=== PATIENT | female | born 1955 | race Hispanic/Latino ===

== ENCOUNTER 2017-09-24 05:57 | Inpatient (IN) | payer OTHER ==
[2017-09-19 13:33] VITALS: BMI 37.8
[2017-09-24] MEDS ORDERED: Propofol 10 mg/ml Inj (20 ML) ONE (07:17)
[2017-09-24] MEDS ORDERED: Midazolam 2 MG/2 ML VIAL ONE (07:18)
[2017-09-24] MEDS ORDERED: Neostigmine 1:1000 (1 mg/ml) Inj ONE (07:18)
[2017-09-24] MEDS ORDERED: Succinylcholine 200 mg/10 ml Inj IV ONE (07:18)
[2017-09-24] MEDS ORDERED: Lidocaine 4% (Laryng-O-Jet) Kit MM ONE (07:18)
[2017-09-24] MEDS ORDERED: Sevoflurane - Inhalation Anesthetic Liq (250 ml) ONE (07:18)
[2017-09-24] MEDS ORDERED: Rocuronium 10 mg/ml (5 ml) ONE ×2 (07:20→08:13)
--- NOTE | 2017-09-24 07:35 | CP.PCM.CON ---
History of Present Illness - History of Present Illness History of Present Illness: 62F failed conservative mgmt and elected for total knee replacement. No history of bleeding/blood clots/stents/seizure disorder Review of Systems - Review of Systems All systems: reviewed and no additional remarkable complaints except - Musculoskeletal Musculoskeletal: As Per HPI Past Patient History - Past Medical History & Family History Past Medical History?: Yes - Past Social History Smoking Status: Former Smoker - CARDIAC Hx Cardiac Disorders: No - PULMONARY Hx Respiratory Disorders: No - NEUROLOGICAL Hx Neurological Disorder: No - HEENT Hx HEENT Problems: No - RENAL Hx Chronic Kidney Disease: No - ENDOCRINE/METABOLIC Hx Endocrine Disorders: No - HEMATOLOGICAL/ONCOLOGICAL Hx Blood Disorders: No - INTEGUMENTARY Hx Dermatological Problems: No - MUSCULOSKELETAL/RHEUMATOLOGICAL Hx Musculoskeletal Disorders: Yes Hx Arthritis: Yes (hands,knees,back) - GASTROINTESTINAL Hx Gastrointestinal Disorders: No - GENITOURINARY/GYNECOLOGICAL Hx Genitourinary Disorders: No - PSYCHIATRIC Hx Psychophysiologic Disorder: Yes Hx Depression: Yes - SURGICAL HISTORY Hx Surgeries: Yes Hx Section: Yes (x2) Hx Orthopedic Surgery: Yes (anant hip-2012) Other/Comment: spinal surgery with disc fusion 30 years ago - ANESTHESIA Hx Anesthesia: Yes Hx Anesthesia Reactions: No Hx Malignant Hyperthermia: No Has any member of the family had a problem w/ anesthesia?: No Meds Allergies/Adverse Reactions: Allergies Allergy/AdvReac Type Severity Reaction Status Date / Time No Known Allergies Allergy Verified 09/19/17 13:34 Physical Exam - Constitutional Appears: Well, No Acute Distress - Head Exam Head Exam: ATRAUMATIC - Expanded Lower Extremities Exam Left Knee exam: full ROM, normal inspection Ankle exam: FULL ROM, NORMAL INSPECTION Neuro vacular tendon exam: no vascular compromise - Neurological Exam Neurological exam: Alert, Oriented x3 - Psychiatric Exam Psychiatric exam: Normal Affect, Normal Mood - Skin Skin Exam: Dry, Intact, Normal Color, Warm Results - Vital Signs Recent Vital Signs: Last Vital Signs Temp 9.3 F L 09/24/17 06:47 Pulse 103 H 09/24/17 06:47 Resp 18 09/24/17 06:47 BP 118/67 09/24/17 06:47 Pulse Ox 95 09/24/17 06:47 - Labs Labs: Laboratory Results - last 24 hr 09/24/17 07:00 Crossmatch See Detail BBK History Checked No verified bt Assessment & Plan (1) Primary osteoarthritis of left knee Assessment and Plan: NPO T&S for TKR xrays reviewed, shows tricompartmental DJD, worst in lateral compartment with valgus deformity d/w Dr. Trejo agrees with above Status: Acute (2) Depression Assessment and Plan: cont home meds Status: Chronic
[2017-09-24 07:37] LABS: INR 1.1 (0.9-1.2); PARTIAL THROMBOPLASTIN TIME 29.4 Seconds (25.6-37.1); PROTHROMBIN TIME 12.7 Seconds (9.8-13.1)
[2017-09-24] MEDS ORDERED: Bupivacaine 0.5% Inj(30mL) ONE (07:42)
[2017-09-24] MEDS ORDERED: MethylPREDNISolone Depo 40 mg/ml Inj ONE (07:42)
[2017-09-24] MEDS ORDERED: Absorbable Gelatin Sponge Size 100 ONE (07:43)
[2017-09-24] MEDS ORDERED: Bacitracin Ointment 30 GM TUBE ONE (07:43)
[2017-09-24] MEDS ORDERED: Thrombin Topical 5,000 Int Units Spray Kit ONE (07:43)
[2017-09-24] MEDS ORDERED: Lactated Ringer's 1,000 ML IV ONE ×2 (07:50→10:15)
--- NOTE | 2017-09-24 08:35 | CP.PCM.CON ---
History of Present Illness - History of Present Illness History of Present Illness: Reason for consult: preop eval HPI: This is a 62 year old female with PMH Depression on Cymbalta presenting today for L knee surgery with Dr. Trejo. Patient has a history of osteoarthritis that failed conservative treatment. Patient was evaluated by Omayra DANGELO for medical clearance as well as Dr. Kavon Fischer for Cardiology clearance as well. Preop H/H 13.2/39.9. HD stable NAD. Mets > 4, medically stable for OR, low risk for moderate risk procedure. ROS: per HPI all other systems reviewed and negative Past Patient History - Past Medical History & Family History Past Medical History?: Yes - Past Social History Smoking Status: Former Smoker - CARDIAC Hx Cardiac Disorders: No - PULMONARY Hx Respiratory Disorders: No - NEUROLOGICAL Hx Neurological Disorder: No - HEENT Hx HEENT Problems: No - RENAL Hx Chronic Kidney Disease: No - ENDOCRINE/METABOLIC Hx Endocrine Disorders: No - HEMATOLOGICAL/ONCOLOGICAL Hx Blood Disorders: No - INTEGUMENTARY Hx Dermatological Problems: No - MUSCULOSKELETAL/RHEUMATOLOGICAL Hx Musculoskeletal Disorders: Yes Hx Arthritis: Yes (hands,knees,back) - GASTROINTESTINAL Hx Gastrointestinal Disorders: No - GENITOURINARY/GYNECOLOGICAL Hx Genitourinary Disorders: No - PSYCHIATRIC Hx Psychophysiologic Disorder: Yes Hx Depression: Yes - SURGICAL HISTORY Hx Surgeries: Yes Hx Section: Yes (x2) Hx Orthopedic Surgery: Yes (anant hip-2012) Other/Comment: spinal surgery with disc fusion 30 years ago - ANESTHESIA Hx Anesthesia: Yes Hx Anesthesia Reactions: No Hx Malignant Hyperthermia: No Has any member of the family had a problem w/ anesthesia?: No Meds Allergies/Adverse Reactions: Allergies Allergy/AdvReac Type Severity Reaction Status Date / Time No Known Allergies Allergy Verified 09/19/17 13:34 Physical Exam - Additional Findings Additional findings: General: awake, alert HEENT: NCAT, PERRL, EOMI HEART: RRR, S1, S2 no MRG LUNG: CTAB, no WRR ABD: soft, NT, ND, no mass, no HSM EXT: warm, well perfused NEURO: awake, alert SKIN: warm, dry PSYCH: normal mood, normal affect Results - Vital Signs Recent Vital Signs: Last Vital Signs Temp 9.3 F L 09/24/17 06:47 Pulse 103 H 09/24/17 06:47 Resp 18 09/24/17 06:47 BP 118/67 09/24/17 06:47 Pulse Ox 95 09/24/17 06:47 - Labs Labs: Laboratory Results - last 24 hr 09/24/17 09/24/17 07:00 07:00 PT 12.7 INR 1.1 APTT 29.4 Crossmatch See Detail BBK History Checked No verified bt Assessment & Plan - Assessment and Plan (Free Text) Plan: 62 year old female with PMH Depression on Cymbalta presenting today for L knee surgery with Dr. Trejo. Patient has a history of osteoarthritis that failed conservative treatment. Patient was evaluated by Omayra DANGELO for medical clearance as well as Dr. Kavon Fischer for Cardiology clearance as well. Preop H/H 13.2/39.9. HD stable NAD. Mets > 4, medically stable for OR, low risk for moderate risk procedure. Osteoarthritis L knee surgery with Dr. Trejo Ancef 2 gm 2 more doses Incentive spirometry Orthopedic Surgery Dr. Trejo pain control PT AC per Ortho Depression Cont Cymbalta
--- NOTE | 2017-09-24 08:49 | RAD ---
PROCEDURE: Left Knee Radiographs. HISTORY: Pain. COMPARISON: None. FINDINGS: BONES: No acute fracture or destructive bony lesion identified. JOINTS: Marked joint space narrowing, cortical sclerosis and marginal osteophytes are identified at the patellofemoral and lateral femorotibial compartments with a mild valgus deformity of the knee joint appreciated. Lesser similar changes present medial femorotibial compartment. JOINT EFFUSION: A moderate suprapatellar bursa effusions identified. OTHER FINDINGS: None. IMPRESSION: Advanced osteoarthritis left knee. No acute fracture or dislocation. Mild valgus knee deformity identified on a degenerative basis.
[2017-09-24] MEDS ORDERED: Bupivacaine HCl 0.25% PF (30 ml) Inj ONE ×2 (09:04→09:05)
[2017-09-24] MEDS ORDERED: EPINEPHrine 1 mg/ml (1:1000) Inj ONE (09:04)
[2017-09-24] MEDS ORDERED: Tranexamic Acid 100 mg/ml IV ONE (09:45)
[2017-09-24] MEDS ORDERED: HYDROmorphone 0.5 mg/0.5 ml ISec IVP PRN (11:11)
--- NOTE | 2017-09-24 12:36 | PCM.ANESB3 ---
Femoral Nerve Block - Femoral Nerve Block Date of Procedure: 09/24/17 Anesthesiologist: Dr. Oakes Pre-Procedure Diagnosis: S/P left total knee replacement Post-Procedure Diagnosis: S/P left total knee replacement Procedure Performed: Femoral Nerve Block Left - Procedure Femoral Nerve Block: The procedure was explained to the patient that it is for the post-operative pain management. Consent was obtained after a thorough discussion with the patient regarding the benefits and possible complications of local anesthetic block of the femoral nerve at the inguinal crease area. The patient was brought to recovery room and standard monitors were applied after the surgery. Time-out was held with the circulating nurse to confirm the correct side and the appropriate block. Patient in supine position with fully extended lower extremities and the left groin exposed. The femoral artery was then carefully palpated. The ultrasound transducer was then applied to this area in the transverse plane and the femoral nerve was visualized lateral to the femoral artery and underneath the fascia iliaca. After thorough identification, the inguinal crease area was prepped with Chloraprep solution and 1 % Lidocaine was injected subcutaneously for topical anesthesia. At this point, a #20 gauge Stimuplex 4-inch needle was inserted immediately lateral to the femoral artery pulse at the inguinal crease and advanced perpendicularly. The needle was inserted to the ultrasound transducer in-plane towards the femoral nerve in a [id number]-[id number] direction. Needle advancement was performed carefully under direct ultrasound visualization. Nerve stimulator was used and twitch of the quadriceps muscle was obtained at current of 0.3MA. After negative aspiration, 5cc of 0.25% Bupivacaine with 1:200,000 epinephrine was injected and this was followed with 35cc of 0.25% Bupivacaine with 1:200, 000 epinephrine. Under ultrasound guidance the local anesthetics were observed spreading below fascia iliaca and around the femoral nerve. The needle was removed intact and sterile dressing was applied. The patient had stable vital signs, was conscious and in no apparent distress. The patient tolerated the femoral nerve block well with stable vital signs.
[2017-09-24] MEDS: Lactated Ringer's 1,000 ML IV SCH (12:59)
[2017-09-24] MEDS: Sodium Chloride 0.9% 1,000 ML IV SCH (13:00)
--- NOTE | 2017-09-24 15:17 | RAD ---
PROCEDURE: Left Knee Radiographs. HISTORY: Postop COMPARISON: Preoperative study September 24, 2017. FINDINGS: BONES: Satisfactory position alignment of components of left TKA. JOINTS: Air identified soft tissues. JOINT EFFUSION: Surgical drain cyst identified. OTHER FINDINGS: None. IMPRESSION: Satisfactory postoperative status.
[2017-09-24] MEDS: Oxycodone/Acetaminophen 5/325 mg Tab PO PRN (16:49)
[2017-09-24] MEDS: ceFAZolin 2 GM in Sodium Chloride 0.9% 100 ML IVPB SCH (16:50)
--- NOTE | 2017-09-24 18:30 | PCM.SURG1 ---
Surgeon's Initial Post Op Note - Surgeon's Notes Surgeon: Maya Publications Manager: 1st assist ELIO Mac/ 2nd assist Jose Bailey PA-C Type of Anesthesia: General Endo, Spinal Anesthesia Administered By: DR Oakes Pre-Operative Diagnosis: Tricompartmental O/A L knee. posterior capsular contracture/lateral patella contracture. arthrotomy/synovectomy. lateral patella release. computer navigation. \ Operative Findings: as above Post-Operative Diagnosis: as above Operation Performed: L TKR. posterior capsule release. anterior and posterior synovectomy. computer navigation Specimen/Specimens Removed: cartilage/synvium/bone Estimated Blood Loss: EBL {In ML}: 75 Blood Products Given: N/A Drains Used: Hemovac Post-Op Condition: Good Date of Surgery/Procedure: 09/24/17 Time of Surgery/Procedure: 08:45 (time in room 7:50/anaesthesia indcution time 7 :50)
--- NOTE | 2017-09-24 19:40 | CP.PCM.CON ---
History of Present Illness - History of Present Illness History of Present Illness: CARDIOLOGY WAS ASKED TO SEE THE PATIENT FOR TACHYCARDIA. SHE JUST UNDERWENT A LEFT KNEE REPLACEMENT FOR SEVERE OA THAT FAILED CONSERVATIVE THERAPY. THE PATIENT DENIES ANY PRIOR CARDIAC PROBLEMS. SHE HAS A HISTORY OF DEPRESSION AND ANXIETY. SHE STATES THAT SHE IS ANXIOUS UNDERGOING KNEE SURGERY AND ALSO HAD 2 CUPS OF COFFEE AND BELIEVES THAT IS THE REASON FOR THE TACHYCARDIA. SHE DENIES CHEST PAIN OR SOB. SHE WAS CLEARED BY HER LOCAL PHYSICIANS PRIOR TO SURGERY. SHE HAD PRIOR HIP SURGERIES. Past Patient History - Past Medical History & Family History Past Medical History?: Yes - Past Social History Smoking Status: Former Smoker - CARDIAC Hx Cardiac Disorders: No - PULMONARY Hx Respiratory Disorders: No - NEUROLOGICAL Hx Neurological Disorder: No - HEENT Hx HEENT Problems: No - RENAL Hx Chronic Kidney Disease: No - ENDOCRINE/METABOLIC Hx Endocrine Disorders: No - HEMATOLOGICAL/ONCOLOGICAL Hx Blood Disorders: No - INTEGUMENTARY Hx Dermatological Problems: No - MUSCULOSKELETAL/RHEUMATOLOGICAL Hx Musculoskeletal Disorders: Yes Hx Arthritis: Yes (hands,knees,back) - GASTROINTESTINAL Hx Gastrointestinal Disorders: No - GENITOURINARY/GYNECOLOGICAL Hx Genitourinary Disorders: No - PSYCHIATRIC Hx Psychophysiologic Disorder: Yes Hx Depression: Yes - SURGICAL HISTORY Hx Surgeries: Yes Hx Section: Yes (x2) Hx Orthopedic Surgery: Yes (anant hip-2012) Other/Comment: spinal surgery with disc fusion 30 years ago - ANESTHESIA Hx Anesthesia: Yes Hx Anesthesia Reactions: No Hx Malignant Hyperthermia: No Has any member of the family had a problem w/ anesthesia?: No Meds Allergies/Adverse Reactions: Allergies Allergy/AdvReac Type Severity Reaction Status Date / Time No Known Allergies Allergy Verified 09/19/17 13:34 - Medications Medications: Current Medications Aspirin (Ecotrin) 81 mg PO BID [facility] Docusate Sodium (Colace) 100 mg PO BID [facility] Last Admin: 09/24/17 17:09 Dose: 100 mg Duloxetine HCl (Cymbalta) 60 mg PO DAILY [facility] Last Admin: 09/24/17 19:36 Dose: 60 mg Hydromorphone HCl (Dilaudid) 0.5 mg IVP Q4 PRN PRN Reason: Pain, severe (8-10) Cefazolin Sodium 2 gm/ Sodium (Chloride) 100 mls @ 100 mls/hr IVPB Q8H [facility] PRN Reason: Protocol Stop: 09/25/17 00:59 Last Admin: 09/24/17 16:50 Dose: 100 mls/hr Sodium Chloride (Sodium Chloride 0.9%) 1,000 mls @ 80 mls/hr IV .[id number] [facility] Stop: 09/25/17 11:07 Last Admin: 09/24/17 13:00 Dose: Not Given Lactated Ringer's (Lactated Ringer's) 1,000 mls @ 100 mls/hr IV .Q10H [facility] Last Admin: 09/24/17 12:59 Dose: Not Given Ondansetron HCl (Zofran Inj) 4 mg IVP Q6 PRN PRN Reason: Nausea/Vomiting Last Admin: 09/24/17 19:35 Dose: 4 mg Oxycodone/Acetaminophen (Percocet 5/325 Mg Tab) 1 tab PO Q4 PRN PRN Reason: Pain, moderate (4-7) Stop: 09/27/17 11:06 Last Admin: 09/24/17 16:49 Dose: 1 tab Physical Exam - Respiratory Exam Respiratory Exam: Clear to Auscultation Bilateral - Cardiovascular Exam Cardiovascular Exam: Tachycardia, +S1, +S2 - Extremities Exam Additional comments: LLE IN AN IMMOBILIZER RLE WITHOUT EDEMA AND DANIEL'S SIGN IS NEGATIVE - Additional Findings Additional findings: EKG SINUS TACHYCARDIA, R 109, NO ACUTE CHANGES Results - Vital Signs Recent Vital Signs: Last Vital Signs Temp 98.2 F 09/24/17 16:41 Pulse 113 H 09/24/17 16:41 Resp 17 09/24/17 16:41 BP 130/75 09/24/17 16:41 Pulse Ox 97 09/24/17 16:41 - Labs Labs: Laboratory Results - last 24 hr 09/24/17 09/24/17 09/24/17 07:00 07:00 07:30 PT 12.7 INR 1.1 APTT 29.4 Blood Type B POSITIVE Blood Type Confirm B POSITIVE Antibody Screen Negative Crossmatch See Detail BBK History Checked No verified bt Assessment & Plan - Assessment and Plan (Free Text) Assessment: MILD SINUS TACHYCARDIA MOST PROBABLY FROM ANXIETY AND CAFFEINE S/P LEFT TKR Plan: CONTINUE CYMBALTA, ANTIBIOTICS AND PAIN MEDS
[2017-09-25] MEDS: ceFAZolin 2 GM in Sodium Chloride 0.9% 100 ML IVPB SCH (00:39)
[2017-09-25 07:08] LABS: HEMOGLOBIN 11.3 g/dL (12.0-16.0); MEAN CORPUSCULAR HEMOGLOBIN 27.5 pg (27.0-31.0); MEAN CORPUSCULAR HGB CONC 33.6 g/dL (33.0-37.0); RBC 4.09 Mil/uL (3.80-5.20); RED CELL DISTRIBUTION WIDTH 14.6 % (11.5-14.5); WHITE BLOOD COUNT 9.2 K/uL (4.8-10.8)
[2017-09-25 07:32] LABS: BLOOD UREA NITROGEN 15 mg/dl (7-17); CALCIUM 8.4 mg/dL (8.4-10.2); GFR AFRICAN-AMERICAN > 60; GFR NON-AFRICAN AMERICAN > 60
--- NOTE | 2017-09-25 09:04 | CP.PCM.PN ---
Subjective - Date & Time of Evaluation Date of Evaluation: 09/25/17 Time of Evaluation: 08:10 - Subjective Subjective: NO CHEST PAIN OR SOB Objective - Vital Signs/Intake and Output Vital Signs (last 24 hours): Temp Pulse Resp BP Pulse Ox 98.9 F 123 H 18 98/65 L 94 L 09/25/17 08:17 09/25/17 08:17 09/25/17 08:17 09/25/17 08:17 09/25/17 08:17 - Medications Medications: Current Medications Aspirin (Ecotrin) 81 mg PO BID [facility] Docusate Sodium (Colace) 100 mg PO BID [facility] Last Admin: 09/24/17 17:09 Dose: 100 mg Duloxetine HCl (Cymbalta) 60 mg PO DAILY [facility] Last Admin: 09/24/17 19:36 Dose: 60 mg Hydromorphone HCl (Dilaudid) 0.5 mg IVP Q4 PRN PRN Reason: Pain, severe (8-10) Last Admin: 09/25/17 04:52 Dose: 0.5 mg Sodium Chloride (Sodium Chloride 0.9%) 1,000 mls @ 80 mls/hr IV .[id number] [facility] Stop: 09/25/17 11:07 Last Admin: 09/24/17 13:00 Dose: Not Given Lactated Ringer's (Lactated Ringer's) 1,000 mls @ 100 mls/hr IV .Q10H [facility] Last Admin: 09/24/17 12:59 Dose: Not Given Ondansetron HCl (Zofran Inj) 4 mg IVP Q6 PRN PRN Reason: Nausea/Vomiting Last Admin: 09/24/17 19:35 Dose: 4 mg Oxycodone/Acetaminophen (Percocet 5/325 Mg Tab) 1 tab PO Q4 PRN PRN Reason: Pain, moderate (4-7) Stop: 09/27/17 11:06 Last Admin: 09/24/17 16:49 Dose: 1 tab - Labs Labs: 09/25/17 06:30 09/25/17 06:30 PT 12.7 Seconds (9.8-13.1) 09/24/17 07:00 INR 1.1 (0.9-1.2) 09/24/17 07:00 APTT 29.4 Seconds (25.6-37.1) 09/24/17 07:00 - Respiratory Exam Respiratory Exam: Clear to Ausculation Bilateral - Cardiovascular Exam Cardiovascular Exam: REGULAR RHYTHM, +S1, +S2 - Additional Findings Additional findings: H/H Assessment and Plan - Assessment and Plan (Free Text) Assessment: LEFT TKR DEPRESSION AND ANXIETY SINUS TACHYCARDIA Plan: CONTINUE CYMBALTA, ASPIRIN AND PAIN MEDICATIONS FOR REHAB
[2017-09-25] MEDS ORDERED: HYDROmorphone 0.5 mg/0.5 ml ISec IVP STA (10:04)
--- NOTE | 2017-09-25 10:44 | CARD ---
APPROVED REPORT EKG Measurement Heart [id number] <Conclusion> Sinus tachycardia Low voltage QRS Possible Inferior infarct, age undetermined Abnormal ECG
[2017-09-25] MEDS: Lactated Ringer's 1,000 ML IV SCH ×2 (11:28→17:28)
--- NOTE | 2017-09-25 11:56 | CP.PCM.PN ---
Subjective - Date & Time of Evaluation Date of Evaluation: 09/25/17 Time of Evaluation: 11:55 - Subjective Subjective: doing well pain controlled hd stable NAD Objective - Vital Signs/Intake and Output Vital Signs (last 24 hours): Temp Pulse Resp BP Pulse Ox 98.9 F 123 H 18 98/65 L 94 L 09/25/17 08:17 09/25/17 08:17 09/25/17 08:17 09/25/17 08:17 09/25/17 08:17 Intake and Output: General: awake, alert HEENT: NCAT, PERRL, EOMI HEART: RRR, S1, S2 no MRG LUNG: CTAB, no WRR ABD: soft, NT, ND, no mass, no HSM EXT: warm, well perfused NEURO: awake, alert SKIN: warm, dry PSYCH: normal mood, normal affect - Medications Medications: Current Medications Aspirin (Ecotrin) 81 mg PO BID [facility] Last Admin: 09/25/17 09:27 Dose: 81 mg Docusate Sodium (Colace) 100 mg PO BID [facility] Last Admin: 09/25/17 09:27 Dose: 100 mg Duloxetine HCl (Cymbalta) 60 mg PO DAILY@1700 [facility] Hydromorphone HCl (Dilaudid) 0.5 mg IVP Q4 PRN PRN Reason: Pain, severe (8-10) Last Admin: 09/25/17 09:19 Dose: 0.5 mg Lactated Ringer's (Lactated Ringer's) 1,000 mls @ 100 mls/hr IV .Q10H [facility] Last Admin: 09/24/17 12:59 Dose: Not Given Ondansetron HCl (Zofran Inj) 4 mg IVP Q6 PRN PRN Reason: Nausea/Vomiting Last Admin: 09/24/17 19:35 Dose: 4 mg Oxycodone/Acetaminophen (Percocet 5/325 Mg Tab) 1 tab PO Q4 PRN PRN Reason: Pain, moderate (4-7) Stop: 09/27/17 11:06 Last Admin: 09/24/17 16:49 Dose: 1 tab - Labs Labs: 09/25/17 06:30 09/25/17 06:30 PT 12.7 Seconds (9.8-13.1) 09/24/17 07:00 INR 1.1 (0.9-1.2) 09/24/17 07:00 APTT 29.4 Seconds (25.6-37.1) 09/24/17 07:00 Assessment and Plan - Assessment and Plan (Free Text) Plan: 62 year old female with PMH Depression on Cymbalta presenting today for L knee surgery with Dr. Trejo. Patient has a history of osteoarthritis that failed conservative treatment. Patient was evaluated by Omayra DANGELO for medical clearance as well as Dr. Kavon Fischer for Cardiology clearance as well. Preop H/H 13.2/39.9. HD stable NAD. Mets > 4, medically stable for OR, low risk for moderate risk procedure. Osteoarthritis L knee surgery with Dr. Trejo Ancef 2 gm 2 more doses Incentive spirometry Orthopedic Surgery Dr. Trejo pain control PT AC per Ortho Depression Cont Cymbalta
--- NOTE | 2017-09-25 12:30 | CP.PCM.PN ---
Subjective - Date & Time of Evaluation Date of Evaluation: 09/25/17 Time of Evaluation: 09:00 - Subjective Subjective: Patient seen and examined at bedside comfortable. Pain well controlled. Tolerating diet well. Able to ambulate down barney with rolling walker during PT session. + void, neg BM. No acute events overnight. Objective - Vital Signs/Intake and Output Vital Signs (last 24 hours): Temp Pulse Resp BP Pulse Ox 98.9 F 68 18 98/65 L 94 L 09/25/17 08:17 09/25/17 11:41 09/25/17 08:17 09/25/17 08:17 09/25/17 08:17 - Medications Medications: Current Medications Aspirin (Ecotrin) 81 mg PO BID [facility] Last Admin: 09/25/17 09:27 Dose: 81 mg Docusate Sodium (Colace) 100 mg PO BID [facility] Last Admin: 09/25/17 09:27 Dose: 100 mg Duloxetine HCl (Cymbalta) 60 mg PO DAILY@1700 [facility] Hydromorphone HCl (Dilaudid) 0.5 mg IVP Q4 PRN PRN Reason: Pain, severe (8-10) Last Admin: 09/25/17 09:19 Dose: 0.5 mg Lactated Ringer's (Lactated Ringer's) 1,000 mls @ 100 mls/hr IV .Q10H [facility] Last Admin: 09/24/17 12:59 Dose: Not Given Ondansetron HCl (Zofran Inj) 4 mg IVP Q6 PRN PRN Reason: Nausea/Vomiting Last Admin: 09/24/17 19:35 Dose: 4 mg Oxycodone/Acetaminophen (Percocet 5/325 Mg Tab) 1 tab PO Q4 PRN PRN Reason: Pain, moderate (4-7) Stop: 09/27/17 11:06 Last Admin: 09/24/17 16:49 Dose: 1 tab - Labs Labs: 09/25/17 06:30 09/25/17 06:30 PT 12.7 Seconds (9.8-13.1) 09/24/17 07:00 INR 1.1 (0.9-1.2) 09/24/17 07:00 APTT 29.4 Seconds (25.6-37.1) 09/24/17 07:00 - Extremities Exam Additional comments: L knee: dressings CDI, mild swelling, mild tenderness, hemovac intact with mod sang drainage sensation intact SP/DP/TN motor intact EHL/FHL/TA/G pedal pulses intact comp soft NT Assessment and Plan (1) Primary osteoarthritis of left knee Assessment & Plan: POD#1 s/p L TKA doing well -monitor drain output, may remove ivanna AM -labs, vitals stable -complete postop abx doses -DVT ppx -PT/OT WBAT -above d/w Dr. Trejo in agreement Status: Acute
[2017-09-25] MEDS: Sodium Chloride 0.9% 1,000 ML IV SCH (21:48)
[2017-09-26 00:38] VITALS: O2SAT 95
[2017-09-26] MEDS: Lactated Ringer's 1,000 ML IV SCH (05:24)
[2017-09-26 06:59] LABS: HEMOGLOBIN 11.4 g/dL (12.0-16.0); MEAN CELL VOLUME 82.8 fl (81.0-99.0); MEAN CORPUSCULAR HEMOGLOBIN 27.1 pg (27.0-31.0); MEAN CORPUSCULAR HGB CONC 32.8 g/dL (33.0-37.0); RBC 4.19 Mil/uL (3.80-5.20); RED CELL DISTRIBUTION WIDTH 14.8 % (11.5-14.5); WHITE BLOOD COUNT 10.4 K/uL (4.8-10.8)
[2017-09-26 07:10] LABS: BLOOD UREA NITROGEN 12 mg/dl (7-17); CALCIUM 8.7 mg/dL (8.4-10.2); GFR AFRICAN-AMERICAN > 60; GFR NON-AFRICAN AMERICAN > 60
[2017-09-26] MEDS: Oxycodone/Acetaminophen 5/325 mg Tab PO PRN (08:22)
--- NOTE | 2017-09-26 09:01 | OP ---
PROCEDURE DATE: 09/24/2017 PREOPERATIVE DIAGNOSIS: Severe tricompartmental osteoarthritis of left knee with varus deformity. POSTOPERATIVE DIAGNOSES: 1. Severe tricompartmental osteoarthritis of the left knee with varus deformity. 2. Tricompartmental synovitis. 3. Posterior capsular contracture. 4. Lateral patellar retinacular contracture. OPERATIVE FINDINGS: As above. OPERATION PERFORMED: 1. Left total knee replacement arthroplasty. 2. Anterior and posterior synovectomy. 3. Posterior capsular release. 4. Lateral patellar retinacular release. 5. Computer navigation. SPECIMENS REMOVED: Cartilage, synovium, bone. BLOOD LOSS: 75 mL. BLOOD PRODUCTS: No blood products given. DRAINS: One Hemovac drain. POSTOPERATIVE CONDITION: Stable. TIME OF SURGERY: Time in the room 7:50, incision time 8:45. OPERATIVE INDICATIONS: Jagruti Billingsley is a 62-year-old woman who presents with severe osteoarthritis of the left knee for many years. The patient is well known to my practice. The patient finally can no longer withstand the pain and presents at this point in time for total knee replacement arthroplasty. Pros, cons, risks and benefits of surgical approach discussed. The possibility of mechanical failure, infection, thromboembolic disease, stiffness, nerve injury, secondary or tertiary surgery is discussed, the patient can no longer withstand the pain. OPERATIVE PROCEDURE: After having obtained informed consent in the above fashion, after having identified side, site, and procedure and a critical pause/time-out, after the satisfactory induction of the anesthetic, the patient identified as Jagruti Billingsley in the supine position with all bony prominences well padded, the left lower extremity was prepped and free draped in the usual fashion for lower extremity surgery. The tourniquet had been applied but is not yet inflated. The satisfactory induction of spinal and general anesthesia had been accomplished by Dr. Oakes. After exsanguinating the limb using a 6-inch Esmarch bandage, the tourniquet, which had been applied, was inflated to 350 mmHg. Approximately a 6-inch incision was described from the tibial tuberosity three fingerbreadths superior to the patella, the skin incision was carried down through the skin and subcutaneous tissue. Hemostasis was controlled electrocautery. Medial arthrotomy is accomplished. The knee was everted. The dissection was carried around posteromedially to the direct head of the semimembranosus tendon. A portion of the patellar ligament is elevated. This having been accomplished, the knee was flexed. Anterior and posterior cruciate ligaments were excised. Medial and lateral meniscectomies were accomplished. This having been accomplished, the tibia was dislocated anteriorly, computer navigation commences. The anterior tibial was affixed to the tibia for the accelerometer and the sensor which are the mediators of the computer navigation. This having been accomplished, the tibia was dislocated anteriorly. Anterior and posterior cruciate ligaments were excised. Medial and lateral meniscectomies were accomplished. A portion of the iliotibial band was released. This having been accomplished, the medial malleolus was registered, lateral malleolus and the offset from the posterior aspect of the anterior cruciate ligament. This having been accomplished, varus-valgus was set after registration of the medial and lateral malleoli. Varus-valgus was set to 0 degrees posterior slope to 3 degrees. There was varus deformity with compression at the medial tibial condyle and this having been accomplished, the osteotomy was accomplished using the oscillating saw. The tibia was measured to a #3 tibial component, guides to rotation of the lateral aspect of the tibial condyle, mid malleolar axis, medial third of the tibial tuberosity. The cut is set to 12 mm. This having been accomplished, the wound was thoroughly irrigated. The proximal tibia was prepared with reaming and punching and attention was turned to the femur. The computer navigation was carried out as well. The distal femoral cutting guide was affixed after the navigation pin was placed just superior to the to the intercondylar notch. This having been accomplished, the varus-valgus is set to 0 degrees posterior slope to 1 degree. Again this having been accomplished, the wound was thoroughly irrigated. block is sized for a #3 femoral component. The block was affixed. Anterior and posterior osteotomies were accomplished as well as the chamfer cuts. The intercondylar notch was . There was found to be a posterior capsular contracture and this was released as was the lateral patellar retinaculum, which was released as well. Anterior posterior synovectomy was accomplished. Hemostasis is controlled with Aquamantys. This having been accomplished, attention was turned to the patella. Freehand patella osteotomy was accomplished. The patella is sized. This having been accomplished, trialing is accomplished with the 12-mm polyethylene medial pivot/shear, the rotation was found to be excellent. Patella balance is excellent. Wound was thoroughly irrigated. Femur, tibia, and patella were prepared and the femur was applied, the tibia was applied and the 12 mm polyethylene. The #2 patella component was applied as well. The wound was thoroughly irrigated. The #3 femoral component was applied, the #3 tibial tray, 12 mm polyethylene, #2 patella balance was found to be excellent. The wound was thoroughly irrigated. Tourniquet was deflated. Hemostasis is controlled. Closures in layers, #1 Vicryl over an 8-inch suction Hemovac drain, followed by 0 Vicryl, 2-0 Vicryl and mariana for skin. Alex Toney compression dressing and knee immobilizers applied. Tal Trejo MD
--- NOTE | 2017-09-26 09:47 | CP.PCM.PN ---
Subjective - Date & Time of Evaluation Date of Evaluation: 09/26/17 Time of Evaluation: 09:00 - Subjective Subjective: NO CHEST PAIN OR SOB Objective - Vital Signs/Intake and Output Vital Signs (last 24 hours): Temp Pulse Resp BP Pulse Ox 99.6 F 109 H 20 102/65 95 09/26/17 07:51 09/26/17 07:51 09/26/17 07:51 09/26/17 07:51 09/26/17 07:51 - Medications Medications: Current Medications Aspirin (Ecotrin) 81 mg PO BID [facility] Last Admin: 09/26/17 08:20 Dose: 81 mg Docusate Sodium (Colace) 100 mg PO BID [facility] Last Admin: 09/26/17 08:20 Dose: 100 mg Duloxetine HCl (Cymbalta) 60 mg PO DAILY@1700 [facility] Last Admin: 09/25/17 17:23 Dose: 60 mg Hydromorphone HCl (Dilaudid) 0.5 mg IVP Q4 PRN PRN Reason: Pain, severe (8-10) Last Admin: 09/25/17 21:51 Dose: 0.5 mg Lactated Ringer's (Lactated Ringer's) 1,000 mls @ 100 mls/hr IV .Q10H [facility] Last Admin: 09/26/17 05:24 Dose: Not Given Ondansetron HCl (Zofran Inj) 4 mg IVP Q6 PRN PRN Reason: Nausea/Vomiting Last Admin: 09/24/17 19:35 Dose: 4 mg Oxycodone/Acetaminophen (Percocet 5/325 Mg Tab) 1 tab PO Q4 PRN PRN Reason: Pain, moderate (4-7) Stop: 09/27/17 11:06 Last Admin: 09/26/17 08:22 Dose: 1 tab - Labs Labs: 09/26/17 05:30 09/26/17 05:30 PT 12.7 Seconds (9.8-13.1) 09/24/17 07:00 INR 1.1 (0.9-1.2) 09/24/17 07:00 APTT 29.4 Seconds (25.6-37.1) 09/24/17 07:00 - Respiratory Exam Respiratory Exam: Clear to Ausculation Bilateral - Cardiovascular Exam Cardiovascular Exam: REGULAR RHYTHM, +S1, +S2 Assessment and Plan - Assessment and Plan (Free Text) Assessment: S/P LEFT TKR DEPRESSION AND ANXIETY Plan: FOR REHAB
--- NOTE | 2017-09-26 11:56 | CP.PCM.DIS ---
Provider - Provider Date of Admission: 09/24/17 11:05 Attending physician: Tiff Francois DO Primary care physician: Tal Trejo III, MD Consults: Dr Trejo : Ortho Time Spent in preparation of Discharge (in minutes): 35 Diagnosis - Discharge Diagnosis (1) Primary osteoarthritis of left knee Status: Acute (2) Status post total knee replacement, left Status: Acute (3) Depression Status: Chronic Hospital Course - Lab Results Lab Results: Most Recent Lab Values WBC 10.4 K/uL (4.8-10.8) 09/26/17 05:30 RBC 4.19 Mil/uL (3.80-5.20) 09/26/17 05:30 Hgb 11.4 g/dL (12.0-16.0) L 09/26/17 05:30 Hct 34.7 % (34.0-47.0) 09/26/17 05:30 MCV 82.8 fl (81.0-99.0) 09/26/17 05:30 MCH 27.1 pg (27.0-31.0) 09/26/17 05:30 MCHC 32.8 g/dL (33.0-37.0) L 09/26/17 05:30 RDW 14.8 % (11.5-14.5) H 09/26/17 05:30 Plt Count 207 K/uL (130-400) 09/26/17 05:30 PT 12.7 Seconds (9.8-13.1) 09/24/17 07:00 INR 1.1 (0.9-1.2) 09/24/17 07:00 APTT 29.4 Seconds (25.6-37.1) 09/24/17 07:00 Sodium 138 mmol/l (132-148) 09/26/17 05:30 Potassium 4.0 MMOL/L (3.6-5.0) 09/26/17 05:30 Chloride 100 mmol/L (98-107) 09/26/17 05:30 Carbon Dioxide 25 mmol/L (22-30) 09/26/17 05:30 Anion Gap 17 (10-20) 09/26/17 05:30 BUN 12 mg/dl (7-17) 09/26/17 05:30 Creatinine 0.6 mg/dl (0.7-1.2) L 09/26/17 05:30 Est GFR ( Amer) > 60 09/26/17 05:30 Est GFR (Non-Af Amer) > 60 09/26/17 05:30 Random Glucose 129 mg/dL (65-105) H 09/26/17 05:30 Calcium 8.7 mg/dL (8.4-10.2) 09/26/17 05:30 Blood Type B POSITIVE 09/24/17 07:00 Blood Type Confirm B POSITIVE 09/24/17 07:30 Antibody Screen Negative 09/24/17 07:00 Crossmatch See Detail 09/24/17 07:00 BBK History Checked No verified bt 09/24/17 07:00 - Hospital Course Hospital Course: 62 y/o lady with hx of Primary OA of the Left Knee, who failed conservative outpt mgt, was admitted for planned Left TKR. Pt had Left TKR done by Dr Trejo on 09/24. Pt did well post op. Post op pain well controlled. Wound clean and mariana intact. Hemovac had only minimal drainage and was d/c. Physical therapy was consulted and patient was ambulating well. PT recommended Home PT. Pt was cleared by Dr Trejo for d/c home. Discharge Exam - Head Exam Head Exam: ATRAUMATIC, NORMAL INSPECTION, NORMOCEPHALIC - Eye Exam Eye Exam: EOMI, Normal appearance, PERRL Pupil Exam: NORMAL ACCOMODATION - ENT Exam ENT Exam: Mucous Membranes Moist, Normal External Ear Exam - Neck Exam Neck exam: Full Rom - Respiratory Exam Respiratory Exam: NORMAL BREATHING PATTERN. absent: Respiratory Distress - Cardiovascular Exam Cardiovascular Exam: REGULAR RHYTHM, +S1, +S2 - GI/Abdominal Exam GI & Abdominal Exam: Normal Bowel Sounds, Soft. absent: Tenderness - Extremities Exam Extremities exam: normal capillary refill, pedal pulses present Additional comments: no calf tenderness Surgical wound looks clean, mariana intact - Back Exam Back exam: FULL ROM. absent: CVA tenderness (L), CVA tenderness (R), vertebral tenderness - Neurological Exam Neurological exam: Alert, CN II-XII Intact, Oriented x3, Reflexes Normal - Psychiatric Exam Psychiatric exam: Normal Affect, Normal Mood - Skin Skin Exam: Dry, Normal Color, Warm Discharge Plan - Discharge Medications Prescriptions: Aspirin [Ecotrin] 81 mg PO BID #60 tabec Docusate [Colace] 100 mg PO BID #30 cap oxyCODONE/Acetaminophen [Percocet 5/325 mg Tab] 1 tab PO Q4 PRN #30 tab PRN Reason: Pain, Moderate (4-7) - Follow Up Plan Condition: GOOD Disposition: HOME/ ROUTINE Instructions: Osteoarthritis (DC), Total Knee Replacement (DC), Hemovac Drain Additional Instructions: follow up with Dr. Trejo 1 week [facility] Nurse; [phone] Referrals: Tal Trejo III, MD [Primary Care Provider] -
--- NOTE | 2017-09-26 12:57 | CP.PCM.PN ---
Subjective - Date & Time of Evaluation Date of Evaluation: 09/26/17 Time of Evaluation: 12:56 - Subjective Subjective: Patient was seen and examined at bedside comfortable. Pain is well controlled. Able to climb stairs with PT today. No new complaints. Objective - Vital Signs/Intake and Output Vital Signs (last 24 hours): Temp Pulse Resp BP Pulse Ox 99.6 F 109 H 20 102/65 95 09/26/17 07:51 09/26/17 07:51 09/26/17 07:51 09/26/17 07:51 09/26/17 07:51 - Medications Medications: Current Medications Aspirin (Ecotrin) 81 mg PO BID [facility] Last Admin: 09/26/17 08:20 Dose: 81 mg Docusate Sodium (Colace) 100 mg PO BID [facility] Last Admin: 09/26/17 08:20 Dose: 100 mg Duloxetine HCl (Cymbalta) 60 mg PO DAILY@1700 [facility] Last Admin: 09/25/17 17:23 Dose: 60 mg Hydromorphone HCl (Dilaudid) 0.5 mg IVP Q4 PRN PRN Reason: Pain, severe (8-10) Last Admin: 09/26/17 11:42 Dose: 0.5 mg Lactated Ringer's (Lactated Ringer's) 1,000 mls @ 100 mls/hr IV .Q10H [facility] Last Admin: 09/26/17 05:24 Dose: Not Given Ondansetron HCl (Zofran Inj) 4 mg IVP Q6 PRN PRN Reason: Nausea/Vomiting Last Admin: 09/24/17 19:35 Dose: 4 mg Oxycodone/Acetaminophen (Percocet 5/325 Mg Tab) 1 tab PO Q4 PRN PRN Reason: Pain, moderate (4-7) Stop: 09/27/17 11:06 Last Admin: 09/26/17 08:22 Dose: 1 tab - Labs Labs: 09/26/17 05:30 09/26/17 05:30 PT 12.7 Seconds (9.8-13.1) 09/24/17 07:00 INR 1.1 (0.9-1.2) 09/24/17 07:00 APTT 29.4 Seconds (25.6-37.1) 09/24/17 07:00 - Extremities Exam Additional comments: L knee: dressings CDI, mild swelling, mild tenderness, hemovac removed this AM sensation intact SP/DP/TN motor intact EHL/FHL/TA/G pedal pulses intact comp soft NT Assessment and Plan (1) Primary osteoarthritis of left knee Assessment & Plan: POD#2 s/p L TKA doing well -DVT ppx -PT/OT WBAT -clear to d/c home today -above d/w Dr. Trejo in agreement Status: Acute
[2017-09-26 15:01] VITALS: BP 110/67; PULSE 104; RESP 18; TEMP 98.7
== END 2017-09-26 14:02 | disposition home or self-care (01) | DRG 470 ==
LOC: H.OPSURG 05:57 → H.ERHOLD 11:05 → H.MEDSURG1 13:31
PROVIDERS: ADMIT Student in an Organized Health Care Education/Training Program; ATTEND Student in an Organized Health Care Education/Training Program
PROC: 0SBD0ZZ Excision of Left Knee Joint, Open Approach (ICD-10-PCS; 2017-09-24)
PROC: 0SRD0J9 Replacement of Left Knee Joint with Synthetic Substitute, Cemented, Open Approach (ICD-10-PCS; principal; 2017-09-24 07:45)
PROC: 0KNT0ZZ Release Left Lower Leg Muscle, Open Approach (ICD-10-PCS; 2017-09-24 07:45)
DX: M17.12 Unilateral primary osteoarthritis, left knee (principal); R00.0 Tachycardia, unspecified; F41.8 Other specified anxiety disorders; Z87.891 Personal history of nicotine dependence; M65.862 Other synovitis and tenosynovitis, left lower leg; M24.562 Contracture, left knee; M21.162 Varus deformity, not elsewhere classified, left knee

== ENCOUNTER 2017-11-21 16:39 | Inpatient (IN) | payer OTHER ==
[2017-11-21 16:39] VITALS: BMI 37.8
[2017-11-21] MEDS ORDERED: Piperacillin/Tazobact 3.375 GM in Sodium Chloride 0.9% 100 ML IVPB STA (17:44)
[2017-11-21] MEDS ORDERED: Morphine 4 MG/ML VIAL ONE (17:58)
[2017-11-21] MEDS ORDERED: Piperacillin/Tazobact 3.375 gm Inj IVPB ONE (17:59)
--- NOTE | 2017-11-21 18:33 | ED PDOC ---
Lower Extremity Pain/Injury Time Seen by Provider: 11/21/17 17:28 Chief Complaint (Nursing): Lower Extremity Problem/Injury Chief Complaint (Provider): Left knee pain History Per: Patient Onset/Duration Of Symptoms: Days, Gradual (Sunday) Additional Complaint(s): while at physical therapy last Sunday, scab fell off patient's wound. Having yellowing discharge from the site and pain and redness and swelling. Reports subjective fever yesterday. PMD Paul Mccoy Past Medical History Reviewed: Historical Data, Nursing Documentation, Vital Signs Vital Signs: Last Vital Signs Temp 98.7 F 11/21/17 17:00 Pulse 112 H 11/21/17 17:00 Resp 16 11/21/17 17:00 BP 106/51 L 11/21/17 17:00 Pulse Ox 98 11/21/17 17:00 - Medical History PMH: Anxiety, Arthritis (hands,knees,back), Depression Denies: Chronic Kidney Disease - Surgical History Surgical History: (x3) Other surgeries: Bilateral hip, LEFT knee, back - Family History Family History: States: Other Other Family History: Emphysema (father who was a smoker) - Social History Current smoker - smoking cessation education provided: No Ex-Smoker (has not smoked in the last 12 months): Yes (5 years ago) Alcohol: None Drugs: Denies - Home Medications Home Medications: Ambulatory Orders Medication Instructions Recorded DULoxetine [Cymbalta] 60 mg PO DAILY 09/19/17 Acetaminophen [Tylenol] 2 % PO Q6 PRN 11/21/17 - Allergies Allergies/Adverse Reactions: Allergies Allergy/AdvReac Type Severity Reaction Status Date / Time No Known Allergies Allergy Verified 11/21/17 16:57 Review of Systems ROS Statement: Except As Marked, All Systems Reviewed And Found Negative Constitutional: Positive for: Fever, Chills Musculoskeletal: Positive for: Leg Pain Skin: Positive for: Lesions Neurological: Negative for: Weakness, Numbness Psych: Positive for: Anxiety Physical Exam - Reviewed Nursing Documentation Reviewed: Yes Vital Signs Reviewed: Yes - Physical Exam Appears: Positive for: Non-toxic, In Acute Distress Head Exam: Positive for: ATRAUMATIC, NORMOCEPHALIC Skin: Positive for: Warm, Dry Eye Exam: Positive for: EOMI, PERRL ENT: Negative for: Pharyngeal Erythema, Tonsillar Exudate Neck: Positive for: Painless ROM, Supple Cardiovascular/Chest: Positive for: Tachycardia (regular rhythm). Negative for : Murmur Respiratory: Positive for: Normal Breath Sounds. Negative for: Respiratory Distress Gastrointestinal/Abdominal: Positive for: Soft. Negative for: Tenderness Back: Positive for: Normal Inspection Extremity: Positive for: Pedal Edema, Other (LEFT knee: well-healed vertical surgical wound with ~0.5cm open lesion with yellowish fluid within wound) Lymphatic: Negative for: Adenopathy Neurologic/Psych: Positive for: Alert. Negative for: Motor/Sensory Deficits - Laboratory Results Result Diagrams: 11/23/17 06:20 11/23/17 11:55 - ECG O2 Sat by Pulse Oximetry: 98 - Physician Consult Information Physician Contacted: Tal Trejo III Outcome Of Conversation: Reported to CHAVO Jones orders for workup which were placed, and to anticipate surgery tomorrow. DW Dr Mendez as well. Disposition - Clinical Impression Clinical Impression: Knee pain, Discharge from wound Discussed With Dr.: Daren Garcia Doctor Will See Patient In The: ED Counseled Patient/Family Regarding: Studies Performed, Diagnosis - Disposition Disposition Time: 18:00 Condition: FAIR - Pt Status Changed To: Hospital Disposition Of: Inpatient - Admit Certification Admit to Inpatient:: After my assessment, the patient will require hospitalization for at least two midnights. This is because of the severity of symptoms shown, intensity of services needed, and/or the medical risk in this patient being treated as an outpatient. - POA Present On Arrival: Surgical Site Infection
[2017-11-21] MEDS ORDERED: Sodium Chloride 0.9% 1,000 ML IV STA (18:34)
[2017-11-21 18:43] LABS: VENOUS BLOOD GAS PCO2 48 mmHg (40-60); VENOUS BLOOD GAS PO2 20 mm/Hg (30-55); VENOUS BLOOD PH 7.36 (7.32-7.43)
[2017-11-21 18:58] LABS: BASO % 0.5 % (0.0-2.0); EOS # 0.1 K/uL (0.0-0.7); EOS % 1.8 % (0.0-4.0); HEMOGLOBIN 11.8 g/dL (12.0-16.0); LYMPH # 1.5 K/uL (1.0-4.3); LYMPH % 18.4 % (20.0-40.0); MEAN CELL VOLUME 80.2 fl (81.0-99.0); MEAN CORPUSCULAR HEMOGLOBIN 25.6 pg (27.0-31.0); MEAN CORPUSCULAR HGB CONC 31.9 g/dL (33.0-37.0); MEAN PLATELET VOLUME 8.1 fl (7.2-11.7); MONO # 0.7 K/uL (0.0-0.8); NEUT # 5.8 K/uL (1.8-7.0); NEUT % 70.3 % (50.0-75.0); RBC 4.61 Mil/uL (3.80-5.20); RED CELL DISTRIBUTION WIDTH 15.5 % (11.5-14.5); WHITE BLOOD COUNT 8.3 K/uL (4.8-10.8)
[2017-11-21 19:02] LABS: ALB/GLOB RATIO 1.1 (1.0-2.1); ALBUMIN 4.3 g/dL (3.5-5.0); ALT/SGPT 28 U/L (9-52); AST/SGOT 23 U/L (14-36); BLOOD UREA NITROGEN 18 mg/dl (7-17); CALCIUM 9.2 mg/dL (8.4-10.2); GFR AFRICAN-AMERICAN > 60; GFR NON-AFRICAN AMERICAN > 60
[2017-11-21 19:36] LABS: INR 1.2 (0.9-1.2); PARTIAL THROMBOPLASTIN TIME 29.7 Seconds (25.6-37.1); PROTHROMBIN TIME 13.7 Seconds (9.8-13.1)
[2017-11-21] MEDS ORDERED: Potassium Chloride 20 mEq ER Tab PO STA (19:47)
--- NOTE | 2017-11-21 19:52 | CP.PCM.HP ---
History of Present Illness - History of Present Illness History of Present Illness: CC: Left knee pain This is a 62 year old female with a pmh of left TKR on 09/24/17, also with history of depression on Cymbalta,also with bilateral hip replacements 5 years ago, who presented to the ED after noting worsening pain and redness to her left knee and serous drainage from the surgical site. The patient states that she was at physical therapy today when a scab fell off of her wound and it started draining, prompting her to come to the ED. In the ED, the patient was noted to have warmth, tenderness, and erythema to the left knee. She is being admitted for further workup and evaluation by Dr. Trejo. Patient denies chest pain, shortness of breath, fevers, chills, nausea, vomiting, diarrhea, headache. All of the patient's questions were answered at the bedside. Present on Admission - Present on Admission Any Indicators Present on Admission: No History of DVT/PE: No History of Uncontrolled Diabetes: No Review of Systems - Review of Systems Review of Systems: A 12 point review of systems was conducted and found to be negative other than what was mentioned in the HPI. Past Patient History - Infectious Disease Hx of Infectious Diseases: None - Past Medical History & Family History Past Medical History?: Yes Past Family History: Reviewed and not pertinent - Past Social History Smoking Status: Former Smoker (Quit 5 years ago) Alcohol: None Drugs: Denies - CARDIAC Hx Cardiac Disorders: No - PULMONARY Hx Respiratory Disorders: No - NEUROLOGICAL Hx Neurological Disorder: No - HEENT Hx HEENT Problems: No - RENAL Hx Chronic Kidney Disease: No - ENDOCRINE/METABOLIC Hx Endocrine Disorders: No - HEMATOLOGICAL/ONCOLOGICAL Hx Blood Disorders: No - INTEGUMENTARY Hx Dermatological Problems: No - MUSCULOSKELETAL/RHEUMATOLOGICAL Hx Arthritis: Yes (hands,knees,back) - GASTROINTESTINAL Hx Gastrointestinal Disorders: No - GENITOURINARY/GYNECOLOGICAL Hx Genitourinary Disorders: No - PSYCHIATRIC Hx Anxiety: Yes Hx Depression: Yes - SURGICAL HISTORY Hx Surgeries: Yes Hx Section: Yes (x2) Hx Orthopedic Surgery: Yes (anant hip-2012) Other/Comment: spinal surgery with disc fusion 30 years ago - ANESTHESIA Hx Anesthesia: Yes Hx Anesthesia Reactions: No Hx Malignant Hyperthermia: No Meds Allergies/Adverse Reactions: Allergies Allergy/AdvReac Type Severity Reaction Status Date / Time No Known Allergies Allergy Verified 11/21/17 16:57 Physical Exam - Additional Findings Additional findings: Physical exam: Constitutional- cooperative, awake, alert Head- NCAT, PERRL Eye- PERRL, EOMI ENT- normal exam, MMM. Neck- normal inspection, supple, no JVD Respiratory- CTAB, no wheezes rales rhonchi Cardiovascular- RRR, +S1, +S2 no MRG GI/Abdominal- normal bowel sounds, soft, no mass, no hsm Skin- warm, dry Extremities Exam- + Left knee warmth, erythema, and tenderness to palpation, with serous drainage from surgical site. normal capillary refill, normal inspection Neurological Exam- alert, awake, oriented Psych- normal mood, normal affect Results - Vital Signs Recent Vital Signs: Last Vital Signs Temp 98.9 F 11/21/17 19:45 Pulse 98 H 11/21/17 19:45 Resp 16 11/21/17 19:45 BP 96/54 L 11/21/17 19:45 Pulse Ox 99 11/21/17 19:45 - Labs Result Diagrams: 11/21/17 17:51 11/21/17 18:45 Labs: Laboratory Results - last 24 hr 11/21/17 11/21/17 11/21/17 17:51 18:36 18:45 WBC 8.3 RBC 4.61 Hgb 11.8 L Hct 37.0 MCV 80.2 L D MCH 25.6 L MCHC 31.9 L RDW 15.5 H Plt Count 309 D MPV 8.1 Neut % (Auto) 70.3 Lymph % (Auto) 18.4 L [place] % (Auto) 9.0 Eos % (Auto) 1.8 Baso % (Auto) 0.5 Neut # (Auto) 5.8 Lymph # (Auto) 1.5 [place] # (Auto) 0.7 Eos # (Auto) 0.1 Baso # (Auto) 0.0 PT INR APTT pO2 20 L VBG pH 7.36 VBG pCO2 48 VBG HCO3 23.9 VBG Total CO2 28.6 H VBG O2 Sat (Calc) 31.0 L VBG Base Excess 1.0 VBG Potassium 3.4 L Sodium 140.0 141 Chloride 105.0 103 Glucose 102 Lactate 0.9 FiO2 21.0 Potassium 3.3 L Carbon Dioxide 27 Anion Gap 14 BUN 18 H Creatinine 0.7 Est GFR ( Amer) > 60 Est GFR (Non-Af Amer) > 60 Random Glucose 96 Calcium 9.2 Total Bilirubin 1.0 AST 23 ALT 28 Alkaline Phosphatase 144 H Total Protein 8.3 H Albumin 4.3 Globulin 4.0 H Albumin/Globulin Ratio 1.1 Venous Blood Potassium 3.4 L Blood Type Antibody Screen BBK History Checked 11/21/17 11/21/17 18:45 18:45 WBC RBC Hgb Hct MCV MCH MCHC RDW Plt Count MPV Neut % (Auto) Lymph % (Auto) [place] % (Auto) Eos % (Auto) Baso % (Auto) Neut # (Auto) Lymph # (Auto) [place] # (Auto) Eos # (Auto) Baso # (Auto) PT 13.7 H INR 1.2 APTT 29.7 pO2 VBG pH VBG pCO2 VBG HCO3 VBG Total CO2 VBG O2 Sat (Calc) VBG Base Excess VBG Potassium Sodium Chloride Glucose Lactate FiO2 Potassium Carbon Dioxide Anion Gap BUN Creatinine Est GFR ( Amer) Est GFR (Non-Af Amer) Random Glucose Calcium Total Bilirubin AST ALT Alkaline Phosphatase Total Protein Albumin Globulin Albumin/Globulin Ratio Venous Blood Potassium Blood Type B POSITIVE Antibody Screen Negative BBK History Checked Patient has bt Assessment & Plan - Assessment and Plan (Free Text) Plan: ASSESSMENT/PLAN This is a 62 year old female with a pmh of left TKR on 09/24/17, also with history of depression on Cymbalta, who presented to the ED after noting worsening pain and redness to her left knee and serous drainage from the surgical site. The patient states that she was at physical therapy today when a scab fell off of her wound and it started draining, prompting her to come to the ED. In the ED, the patient was noted to have warmth, tenderness, and erythema to the left knee. She is being admitted for further workup and evaluation by Dr. Trejo. 1) Left knee infection - Admit to med/surg - Consultation with Dr. Trejo, orthopedics - NPO at midnight for possible OR in AM - Dr. Rodgers, instrument specialist, consulted from the ER for cardiac risk assessment - ID consultation with Dr. Grubbs- advises to hold off on further antibiotics and wait for cultures. - Repeat labs in AM - Tylenol PRN for mild pain - Morphine PRN for moderate to severe pain 2) Depression - Continue Cymbalta 3) Hypokalemia 3.3 Kdur 20 meq po once 4) DVT prophylaxis - SCDs
[2017-11-21] MEDS: Sodium Chloride 0.9% 1,000 ML IV SCH (21:12)
[2017-11-22] MEDS: Sodium Chloride 0.9% 1,000 ML IV SCH (05:59)
[2017-11-22 06:40] LABS: HEMOGLOBIN 10.3 g/dL (12.0-16.0); MEAN CELL VOLUME 78.8 fl (81.0-99.0); MEAN CORPUSCULAR HEMOGLOBIN 26.3 pg (27.0-31.0); MEAN CORPUSCULAR HGB CONC 33.4 g/dL (33.0-37.0); RBC 3.91 Mil/uL (3.80-5.20); RED CELL DISTRIBUTION WIDTH 15.6 % (11.5-14.5); WHITE BLOOD COUNT 6.6 K/uL (4.8-10.8)
[2017-11-22 07:01] LABS: BLOOD UREA NITROGEN 14 mg/dl (7-17); CALCIUM 8.7 mg/dL (8.4-10.2); GFR AFRICAN-AMERICAN > 60; GFR NON-AFRICAN AMERICAN > 60
--- NOTE | 2017-11-22 08:08 | CARD ---
APPROVED REPORT EKG Measurement Heart [id number] <Conclusion> Sinus tachycardia Otherwise normal ECG
--- NOTE | 2017-11-22 08:15 | CP.PCM.CON ---
History of Present Illness - History of Present Illness History of Present Illness: Patient is a 62 y/o female who presents to the ER with complaints of left knee pain and drainage which began 3 days ago. The patient recently underwent a left TKA on 09/24/[address] Trejo and was attending routine postop outpatient physical therapy with excellent progress. Three days ago, she attended a therapy session and describes a scab from the inferior aspect of the wound falling off. Shortly after, she noticed continuous yellowish drainage from the site which has persisted until today. She then began to experience progressive knee pain, knee warmth, swelling and fevers over the next days prompting her ER visit. She denies numbness, tingling and radiation of pain. She also denies CP/ SOB/N/V/D/dysuria/melena. Dr. Trejo was consulted for orthopedic evaluation. Review of Systems - Review of Systems All systems: reviewed and no additional remarkable complaints except Review of Systems: as per HPI Past Patient History - Infectious Disease Hx of Infectious Diseases: None - Past Medical History & Family History Past Medical History?: Yes Past Family History: Reviewed and not pertinent - Past Social History Smoking Status: Former Smoker Alcohol: None Drugs: Denies - CARDIAC Hx Cardiac Disorders: No - PULMONARY Hx Respiratory Disorders: No - NEUROLOGICAL Hx Neurological Disorder: No - HEENT Hx HEENT Problems: No - RENAL Hx Chronic Kidney Disease: No - ENDOCRINE/METABOLIC Hx Endocrine Disorders: No - HEMATOLOGICAL/ONCOLOGICAL Hx Blood Disorders: No - INTEGUMENTARY Hx Dermatological Problems: No - MUSCULOSKELETAL/RHEUMATOLOGICAL Hx Arthritis: Yes (hands,knees,back) Hx Falls: No - GASTROINTESTINAL Hx Gastrointestinal Disorders: No - GENITOURINARY/GYNECOLOGICAL Hx Genitourinary Disorders: No - PSYCHIATRIC Hx Anxiety: Yes Hx Depression: Yes Hx Substance Use: No - SURGICAL HISTORY Hx Surgeries: Yes Hx Section: Yes (x2) Hx Orthopedic Surgery: Yes (anant hip-2012) Other/Comment: spinal surgery with disc fusion 30 years ago. left knee surgeery ( 09/24/17) - ANESTHESIA Hx Anesthesia: Yes Hx Anesthesia Reactions: No Hx Malignant Hyperthermia: No Has any member of the family had a problem w/ anesthesia?: No Meds Allergies/Adverse Reactions: Allergies Allergy/AdvReac Type Severity Reaction Status Date / Time No Known Allergies Allergy Verified 11/21/17 16:57 - Medications Medications: Current Medications Acetaminophen (Tylenol 325mg Tab) 650 mg PO Q6 PRN PRN Reason: Pain, Mild (1-3) Docusate Sodium (Colace) 100 mg PO BID [facility] Duloxetine HCl (Cymbalta) 60 mg PO DAILY [facility] Sodium Chloride (Sodium Chloride 0.9%) 1,000 mls @ 125 mls/hr IV .Q8H TARIQ Stop: 11/22/17 20:00 Last Admin: 11/22/17 05:59 Dose: 125 mls/hr Morphine Sulfate (Morphine) 2 mg IVP Q4 PRN PRN Reason: pain 4-10 Last Admin: 11/22/17 06:40 Dose: 2 mg Ondansetron HCl (Zofran Inj) 4 mg IVP Q6 PRN PRN Reason: Nausea/Vomiting Physical Exam - Constitutional Appears: Well, No Acute Distress - Head Exam Head Exam: ATRAUMATIC, NORMOCEPHALIC - Eye Exam Eye Exam: EOMI, Normal appearance, PERRL - ENT Exam ENT Exam: Mucous Membranes Moist, Normal Exam - Respiratory Exam Respiratory Exam: Clear to Auscultation Bilateral, NORMAL BREATHING PATTERN - Cardiovascular Exam Cardiovascular Exam: REGULAR RHYTHM - GI/Abdominal Exam GI & Abdominal Exam: Normal Bowel Sounds, Soft - Extremities Exam Additional comments: L knee: mild tenderness anteriorly, mild swelling, mild warmth, no erythema moderate serous drainage expressed from small opening at the inferior aspect of the surgical wound sensation intact SP/DP/TN motor intact EHL/FHL/TA/G pedal pulses intact comps soft NT Results - Vital Signs Recent Vital Signs: Last Vital Signs Temp 98.1 F 11/22/17 00:11 Pulse 96 H 11/22/17 00:11 Resp 20 11/22/17 00:11 BP 98/60 L 11/22/17 00:11 Pulse Ox 96 11/22/17 00:11 - Labs Result Diagrams: 11/22/17 05:20 11/22/17 05:20 Labs: Laboratory Results - last 24 hr 11/21/17 11/21/17 11/21/17 17:51 18:36 18:45 WBC 8.3 RBC 4.61 Hgb 11.8 L Hct 37.0 MCV 80.2 L D MCH 25.6 L MCHC 31.9 L RDW 15.5 H Plt Count 309 D MPV 8.1 Neut % (Auto) 70.3 Lymph % (Auto) 18.4 L [place] % (Auto) 9.0 Eos % (Auto) 1.8 Baso % (Auto) 0.5 Neut # (Auto) 5.8 Lymph # (Auto) 1.5 [place] # (Auto) 0.7 Eos # (Auto) 0.1 Baso # (Auto) 0.0 ESR 91 H PT INR APTT pO2 20 L VBG pH 7.36 VBG pCO2 48 VBG HCO3 23.9 VBG Total CO2 28.6 H VBG O2 Sat (Calc) 31.0 L VBG Base Excess 1.0 VBG Potassium 3.4 L Sodium 140.0 141 Chloride 105.0 103 Glucose 102 Lactate 0.9 FiO2 21.0 Potassium 3.3 L Carbon Dioxide 27 Anion Gap 14 BUN 18 H Creatinine 0.7 Est GFR ( Amer) > 60 Est GFR (Non-Af Amer) > 60 Random Glucose 96 Calcium 9.2 Total Bilirubin 1.0 AST 23 ALT 28 Alkaline Phosphatase 144 H Total Protein 8.3 H Albumin 4.3 Globulin 4.0 H Albumin/Globulin Ratio 1.1 Venous Blood Potassium 3.4 L Blood Type Antibody Screen BBK History Checked 11/21/17 11/21/17 11/22/17 18:45 18:45 05:20 WBC 6.6 RBC 3.91 Hgb 10.3 L Hct 30.8 L MCV 78.8 L MCH 26.3 L MCHC 33.4 RDW 15.6 H Plt Count 275 MPV Neut % (Auto) Lymph % (Auto) [place] % (Auto) Eos % (Auto) Baso % (Auto) Neut # (Auto) Lymph # (Auto) [place] # (Auto) Eos # (Auto) Baso # (Auto) ESR PT 13.7 H INR 1.2 APTT 29.7 pO2 VBG pH VBG pCO2 VBG HCO3 VBG Total CO2 VBG O2 Sat (Calc) VBG Base Excess VBG Potassium Sodium Chloride Glucose Lactate FiO2 Potassium Carbon Dioxide Anion Gap BUN Creatinine Est GFR ( Amer) Est GFR (Non-Af Amer) Random Glucose Calcium Total Bilirubin AST ALT Alkaline Phosphatase Total Protein Albumin Globulin Albumin/Globulin Ratio Venous Blood Potassium Blood Type B POSITIVE Antibody Screen Negative BBK History Checked Patient has bt 11/22/17 05:20 WBC RBC Hgb Hct MCV MCH MCHC RDW Plt Count MPV Neut % (Auto) Lymph % (Auto) [place] % (Auto) Eos % (Auto) Baso % (Auto) Neut # (Auto) Lymph # (Auto) [place] # (Auto) Eos # (Auto) Baso # (Auto) ESR PT INR APTT pO2 VBG pH VBG pCO2 VBG HCO3 VBG Total CO2 VBG O2 Sat (Calc) VBG Base Excess VBG Potassium Sodium 143 Chloride 111 H Glucose Lactate FiO2 Potassium 3.8 Carbon Dioxide 23 Anion Gap 13 BUN 14 Creatinine 0.5 L Est GFR ( Amer) > 60 Est GFR (Non-Af Amer) > 60 Random Glucose 106 H Calcium 8.7 Total Bilirubin AST ALT Alkaline Phosphatase Total Protein Albumin Globulin Albumin/Globulin Ratio Venous Blood Potassium Blood Type Antibody Screen BBK History Checked Assessment & Plan (1) Infected prosthetic knee joint Assessment and Plan: Dr. Trejo proposes left knee irrigation and debridement, possible poly exchange in OR today NPO Medical/Cardiac clearance Consult ID Dr. Grubbs Risks/benefits of procedure were explained to patient in detail. Patient expresses understanding and agrees to proceed. Above d/w Dr. Trejo in agreement Status: Acute - Date & Time Date: 11/22/17 Time: 07:45
--- NOTE | 2017-11-22 09:20 | CP.PCM.CON ---
History of Present Illness - History of Present Illness History of Present Illness: THE PATIENT IS A 62 YEAR OLD FEMALE WHO HAD A LEFT TKR FOR OA TWO MONTHS AGO AND WAS CONTINUING TO GO TO OUT PATIENT REHAB AND EIGHT DAYS AGO THE LAST OF THE SCAB OVER THE LEFT KNEE INCISION SITE FELL AND AND SHE BEGAN HAVING YELLOWISH DRAINAGE AND THE AREA BECAME WARM, TENDER AND RED. SHE CALLED DR DOOLEY AND WAS ADVISED TO COME TO THE ER AND SHE WAS ADMITTED. SHE ALSO COMPLAINS OF FEELING A LITTLE FEVERISH. SHE HAD MILD TACHYCARDIA ON HER EKG AND CARDIOLOGY WAS ASKED TO SEE HER. SHE DENIES ANY SIGNIFICANT PAST MEDICAL PROBLEMS INCLUDING CHEST PAIN, CAD OR HYPERTENSION. Past Patient History - Infectious Disease Hx of Infectious Diseases: None - Past Medical History & Family History Past Medical History?: Yes - Past Social History Smoking Status: Former Smoker - CARDIAC Hx Cardiac Disorders: No - PULMONARY Hx Respiratory Disorders: No - NEUROLOGICAL Hx Neurological Disorder: No - HEENT Hx HEENT Problems: No - RENAL Hx Chronic Kidney Disease: No - ENDOCRINE/METABOLIC Hx Endocrine Disorders: No - HEMATOLOGICAL/ONCOLOGICAL Hx Blood Disorders: No - INTEGUMENTARY Hx Dermatological Problems: No - MUSCULOSKELETAL/RHEUMATOLOGICAL Hx Arthritis: Yes (hands,knees,back) Hx Falls: No - GASTROINTESTINAL Hx Gastrointestinal Disorders: No - GENITOURINARY/GYNECOLOGICAL Hx Genitourinary Disorders: No - PSYCHIATRIC Hx Anxiety: Yes Hx Depression: Yes Hx Substance Use: No - SURGICAL HISTORY Hx Surgeries: Yes Hx Section: Yes (x2) Hx Orthopedic Surgery: Yes (anant hip-2012) Other/Comment: spinal surgery with disc fusion 30 years ago. left knee surgeery ( 09/24/17) - ANESTHESIA Hx Anesthesia: Yes Hx Anesthesia Reactions: No Hx Malignant Hyperthermia: No Has any member of the family had a problem w/ anesthesia?: No Meds Allergies/Adverse Reactions: Allergies Allergy/AdvReac Type Severity Reaction Status Date / Time No Known Allergies Allergy Verified 11/21/17 16:57 - Medications Medications: Current Medications Acetaminophen (Tylenol 325mg Tab) 650 mg PO Q6 PRN PRN Reason: Pain, Mild (1-3) Docusate Sodium (Colace) 100 mg PO BID [facility] Last Admin: 11/22/17 08:41 Dose: 100 mg Duloxetine HCl (Cymbalta) 60 mg PO DAILY [facility] Last Admin: 11/22/17 08:41 Dose: 60 mg Sodium Chloride (Sodium Chloride 0.9%) 1,000 mls @ 125 mls/hr IV .Q8H TARIQ Stop: 11/22/17 20:00 Last Admin: 11/22/17 05:59 Dose: 125 mls/hr Morphine Sulfate (Morphine) 2 mg IVP Q4 PRN PRN Reason: pain 4-10 Last Admin: 11/22/17 06:40 Dose: 2 mg Ondansetron HCl (Zofran Inj) 4 mg IVP Q6 PRN PRN Reason: Nausea/Vomiting Physical Exam - Respiratory Exam Respiratory Exam: Clear to Auscultation Bilateral - Cardiovascular Exam Cardiovascular Exam: REGULAR RHYTHM, +S1, +S2 - Extremities Exam Additional comments: LEFT KNEE AREA WITH SURGICAL DRESSINGS - Additional Findings Additional findings: EKG SINUS TACHYCARDIA, R 106 Results - Vital Signs Recent Vital Signs: Last Vital Signs Temp 98.4 F 11/22/17 08:44 Pulse 99 H 11/22/17 08:44 Resp 20 11/22/17 08:44 BP 104/66 11/22/17 08:44 Pulse Ox 94 L 11/22/17 08:44 - Labs Result Diagrams: 11/22/17 05:20 11/22/17 05:20 Labs: Laboratory Results - last 24 hr 11/21/17 11/21/17 11/21/17 17:51 18:36 18:45 WBC 8.3 RBC 4.61 Hgb 11.8 L Hct 37.0 MCV 80.2 L D MCH 25.6 L MCHC 31.9 L RDW 15.5 H Plt Count 309 D MPV 8.1 Neut % (Auto) 70.3 Lymph % (Auto) 18.4 L [place] % (Auto) 9.0 Eos % (Auto) 1.8 Baso % (Auto) 0.5 Neut # (Auto) 5.8 Lymph # (Auto) 1.5 [place] # (Auto) 0.7 Eos # (Auto) 0.1 Baso # (Auto) 0.0 ESR 91 H PT INR APTT pO2 20 L VBG pH 7.36 VBG pCO2 48 VBG HCO3 23.9 VBG Total CO2 28.6 H VBG O2 Sat (Calc) 31.0 L VBG Base Excess 1.0 VBG Potassium 3.4 L Sodium 140.0 141 Chloride 105.0 103 Glucose 102 Lactate 0.9 FiO2 21.0 Potassium 3.3 L Carbon Dioxide 27 Anion Gap 14 BUN 18 H Creatinine 0.7 Est GFR ( Amer) > 60 Est GFR (Non-Af Amer) > 60 Random Glucose 96 Calcium 9.2 Total Bilirubin 1.0 AST 23 ALT 28 Alkaline Phosphatase 144 H Total Protein 8.3 H Albumin 4.3 Globulin 4.0 H Albumin/Globulin Ratio 1.1 Venous Blood Potassium 3.4 L Blood Type Antibody Screen BBK History Checked 11/21/17 11/21/17 11/22/17 18:45 18:45 05:20 WBC 6.6 RBC 3.91 Hgb 10.3 L Hct 30.8 L MCV 78.8 L MCH 26.3 L MCHC 33.4 RDW 15.6 H Plt Count 275 MPV Neut % (Auto) Lymph % (Auto) [place] % (Auto) Eos % (Auto) Baso % (Auto) Neut # (Auto) Lymph # (Auto) [place] # (Auto) Eos # (Auto) Baso # (Auto) ESR PT 13.7 H INR 1.2 APTT 29.7 pO2 VBG pH VBG pCO2 VBG HCO3 VBG Total CO2 VBG O2 Sat (Calc) VBG Base Excess VBG Potassium Sodium Chloride Glucose Lactate FiO2 Potassium Carbon Dioxide Anion Gap BUN Creatinine Est GFR ( Amer) Est GFR (Non-Af Amer) Random Glucose Calcium Total Bilirubin AST ALT Alkaline Phosphatase Total Protein Albumin Globulin Albumin/Globulin Ratio Venous Blood Potassium Blood Type B POSITIVE Antibody Screen Negative BBK History Checked Patient has bt 11/22/17 05:20 WBC RBC Hgb Hct MCV MCH MCHC RDW Plt Count MPV Neut % (Auto) Lymph % (Auto) [place] % (Auto) Eos % (Auto) Baso % (Auto) Neut # (Auto) Lymph # (Auto) [place] # (Auto) Eos # (Auto) Baso # (Auto) ESR PT INR APTT pO2 VBG pH VBG pCO2 VBG HCO3 VBG Total CO2 VBG O2 Sat (Calc) VBG Base Excess VBG Potassium Sodium 143 Chloride 111 H Glucose Lactate FiO2 Potassium 3.8 Carbon Dioxide 23 Anion Gap 13 BUN 14 Creatinine 0.5 L Est GFR ( Amer) > 60 Est GFR (Non-Af Amer) > 60 Random Glucose 106 H Calcium 8.7 Total Bilirubin AST ALT Alkaline Phosphatase Total Protein Albumin Globulin Albumin/Globulin Ratio Venous Blood Potassium Blood Type Antibody Screen BBK History Checked Assessment & Plan - Assessment and Plan (Free Text) Assessment: LEFT KNEE WOUND INFECTION SINUS TACHYCARDIA-MILD Plan: OK TO PROCEED WITH SURGERY FROM CARDIAC VIEWPOINT
--- NOTE | 2017-11-22 10:32 | CP.PCM.PN ---
Subjective - Date & Time of Evaluation Date of Evaluation: 11/22/17 Time of Evaluation: 10:03 - Subjective Subjective: I D NOTE DISCUSSED c (HOSPITALIST) POSSIBLY FOR SURGERY TODAY. WILL HOLD FURTHER ANTIBIOTIC RX IF POSSIBLE,UNTIL SURGERY DONE. Objective - Vital Signs/Intake and Output Vital Signs (last 24 hours): Temp Pulse Resp BP Pulse Ox 98.4 F 99 H 20 104/66 94 L 11/22/17 08:44 11/22/17 08:44 11/22/17 08:44 11/22/17 08:44 11/22/17 08:44 - Medications Medications: Current Medications Acetaminophen (Tylenol 325mg Tab) 650 mg PO Q6 PRN PRN Reason: Pain, Mild (1-3) Docusate Sodium (Colace) 100 mg PO BID [facility] Last Admin: 11/22/17 08:41 Dose: 100 mg Duloxetine HCl (Cymbalta) 60 mg PO DAILY [facility] Last Admin: 11/22/17 08:41 Dose: 60 mg Sodium Chloride (Sodium Chloride 0.9%) 1,000 mls @ 125 mls/hr IV .Q8H [facility] Stop: 11/22/17 20:00 Last Admin: 11/22/17 05:59 Dose: 125 mls/hr Morphine Sulfate (Morphine) 2 mg IVP Q4 PRN PRN Reason: pain 4-10 Last Admin: 11/22/17 06:40 Dose: 2 mg Ondansetron HCl (Zofran Inj) 4 mg IVP Q6 PRN PRN Reason: Nausea/Vomiting - Labs Labs: 11/22/17 05:20 11/22/17 05:20 PT 13.7 Seconds (9.8-13.1) H 11/21/17 18:45 INR 1.2 (0.9-1.2) 11/21/17 18:45 APTT 29.7 Seconds (25.6-37.1) 11/21/17 18:45
--- NOTE | 2017-11-22 10:50 | RAD ---
PROCEDURE: Left Knee Radiographs. HISTORY: Pain. COMPARISON: Left knee portable radiographs 09/24/2017. FINDINGS: BONES: No interval acute fracture, subluxation or dislocation appreciable. Prior postoperative changes appeared resolved however soft edema is seen at the prepatellar and prepatellar tendon soft subcutaneous fat and there is a moderate suprasellar bursa effusion. Further clinical correlation is recommended. Total knee replacement hardware appear intact with no local suspicious lucency developing at the osseous interfaces. JOINTS: As above. JOINT EFFUSION: As above. OTHER FINDINGS: None. IMPRESSION: Anterior soft tissue edema is appreciated as well as moderate suprapatellar bursa effusion no emphysematous postoperative changes have resolved. Clinically correlate for potential cellulitis or deeper infectious or inflammatory process. No evidence to suggest prosthetic loosening at the distal femur or proximal tibia left knee.
--- NOTE | 2017-11-22 10:50 | RAD ---
PROCEDURE: CHEST RADIOGRAPH, 1 VIEW HISTORY: tachycardia COMPARISON: None available. FINDINGS: LUNGS: No acute infiltrate bilaterally. PLEURA: No pneumothorax or pleural fluid seen. CARDIOVASCULAR: Normal. OSSEOUS STRUCTURES: No significant abnormalities. VISUALIZED UPPER ABDOMEN: Normal. OTHER FINDINGS: None. IMPRESSION: No acute cardiopulmonary disease appreciated.
[2017-11-22] MEDS ORDERED: Lidocaine 4% (Laryng-O-Jet) Kit MM ONE (12:43)
[2017-11-22] MEDS ORDERED: Succinylcholine 200 mg/10 ml Inj IV ONE (12:43)
[2017-11-22] MEDS ORDERED: Midazolam 2 MG/2 ML VIAL ONE (12:43)
[2017-11-22] MEDS ORDERED: Propofol 10 mg/ml Inj (20 ML) ONE (12:43)
[2017-11-22] MEDS ORDERED: Rocuronium 10 mg/ml (5 ml) ONE (12:44)
[2017-11-22] MEDS ORDERED: Gentamicin 80 mg/2mL Inj. ONE (13:07)
[2017-11-22] MEDS ORDERED: Thrombin Topical 5,000 Int Units Spray Kit ONE (13:08)
[2017-11-22] MEDS ORDERED: GELATIN SPONGE,ABSORB/PORCINE 1 EACH SPONGE TP ONE (13:08)
[2017-11-22] MEDS ORDERED: Absorbable Gelatin Sponge Size 12-7 ONE (13:08)
[2017-11-22] MEDS ORDERED: Bacitracin Ointment 30 GM TUBE ONE (13:08)
[2017-11-22] MEDS ORDERED: EPINEPHrine 1 mg/ml (1:1000) Inj ONE (13:21)
--- NOTE | 2017-11-22 13:33 | CT ---
PROCEDURE: LEFT KNEE CT WITHOUT CONTRAST HISTORY: LEFT knee pain with discharge from skin COMPARISON: Portable left knee radiographs 09/24/2017. TECHNIQUE: A volumetric CT acquisition was performed through the left knee without intravenous contrast with reformatted datasets provided in sagittal axial coronal planes. Contrast Dose: None Radiation dose:Total exam DLP = 362.63 mGy-cm. This CT exam was performed using one or more of the following dose reduction techniques: Automated exposure control, adjustment of the mA and/or kV according to patient size, and/or use of iterative reconstruction technique. FINDINGS: Left total replacement hardware are noted in good apparent position with no suspicious lucency to suggest loosening or overt osteomyelitis. There is a mid moderate suprasellar bursa effusion identified which is partially artifact by hardware. The visualized proximal fibula appears unremarkable as well as the local musculature above and below the knee. No emphysematous changes are related. No subluxation or fracture is appreciable. The postop for patella appears intact and limited soft tissue edema is appreciated anteriorly and laterally with minimal medial deep subcutaneous edema evident. The superior and inferior popliteal fossa appear unremarkable with the midportion completely obscured by artifact. Dermal thickening seen anteriorly which is limited and could be postoperative scarring or reflect cellulitis. IMPRESSION: Status post left TKR as discussed above with no suspicious orthopedic hardware/bone interface findings to suggest loosening or possible osteomyelitis grossly. The terminates is made as best as can be, given extensive artifacts from heart orthopedic hardware. Moderate suprapatellar bursa effusion without emphysematous changes. Limited anterior and lateral knee subcutaneous reaction or potential postoperative fibrosis. Mild anterior dermal thickening trace cellulitis is also possibility.
[2017-11-22] MEDS ORDERED: Lactated Ringer's 1,000 ML IV ONE (13:35)
[2017-11-22] MEDS ORDERED: Sodium Chloride 0.9% 500 ML IV ONE (13:40)
[2017-11-22] MEDS ORDERED: Sevoflurane - Inhalation Anesthetic Liq (250 ml) ONE (13:51)
[2017-11-22 14:35] LABS: FLUID TYPE SYNOVIAL FLUID
[2017-11-22 14:56] LABS: FLUID TYPE SYNOVIAL FLUID
[2017-11-22 15:12] LABS: SF GROSS APPEARANCE TURBID (CLEAR); SYNOVIAL FLUID COMMENT BLOODY
[2017-11-22] MEDS ORDERED: Bupivacaine HCl 0.25% PF (30 ml) Inj ONE (15:22)
[2017-11-22] MEDS ORDERED: Neostigmine 1:1000 (1 mg/ml) Inj ONE (15:34)
[2017-11-22 15:36] LABS: FLUID TYPE SYNOVIAL FLUID
[2017-11-22 16:11] LABS: SF GROSS APPEARANCE BLOODY (CLEAR)
[2017-11-22] MEDS ORDERED: Morphine 1 mg/ml preservative-free Inj(Duramorph) ONE (16:11)
[2017-11-22 16:12] LABS: SYNOVIAL FLUID COMMENT CLOUDY
[2017-11-22 16:15] LABS: SYNOVIAL FLUID MONO/MACROPHAGE 1 % (0-0)
--- NOTE | 2017-11-22 16:22 | PCM.SURG1 ---
Surgeon's Initial Post Op Note - Surgeon's Notes Surgeon: Maya Washing Machine Assembler: Michaelle Bailey PA-C/Johan neville PA-c Type of Anesthesia: General Endo, Block Regional Anesthesia Administered By: DR Oakes/DR Mendez Pre-Operative Diagnosis: septic TKR L Operative Findings: septic L tkr(consecdutive grm stains with >100 WBC's/hi powerfield). severe synovits Post-Operative Diagnosis: as above Operation Performed: Reveision TKR L 1 component. repair/reinforcement patella loigament. posterior capsular release. anterior and posterior synovectomy. excsion skin, subcutaneous tissue and muscle/. applx provena wound vac Specimen/Specimens Removed: synovium/skin?subcutaneous tissue and muscle Estimated Blood Loss: EBL {In ML}: 75 Blood Products Given: N/A Drains Used: Wound Vac Post-Op Condition: Fair Date of Surgery/Procedure: 11/22/17 Time of Surgery/Procedure: 14:20 (time in room 1335/anaetsheisa indcution time 1335)
[2017-11-22 16:31] LABS: SYNOVIAL FLUID MONO/MACROPHAGE 5 % (0-0)
[2017-11-22] MEDS ORDERED: HYDROmorphone 1 mg/ml ISec IVP PRN (16:52)
--- NOTE | 2017-11-22 16:52 | PCM.ANESB3 ---
Femoral Nerve Block - Femoral Nerve Block Date of Procedure: 11/22/17 Anesthesiologist: Roberto Pre-Procedure Diagnosis: s/p I&D of infected left knee Post-Procedure Diagnosis: same Procedure Performed: Femoral Nerve Block Left - Procedure Femoral Nerve Block: The procedure was explained to the patient that it is for the post-operative pain management. Consent was obtained after a thorough discussion with the patient regarding the benefits and possible complications of local anesthetic block of the femoral nerve at the inguinal crease area. Time-out was held with the circulating nurse to confirm the correct surgery and the appropriate block. Patient was placed in supine position with fully extended lower extremities and the left groin exposed. The femoral artery was then carefully palpated. The ultrasound transducer was then applied to this area in the transverse plane and the femoral nerve was visualized lateral to the femoral artery and underneath the fascia iliaca. After thorough identification, the inguinal crease area was prepped with Betadine solution three times and 1 % Lidocaine was injected subcutaneously for topical anesthesia. At this point, a #22 gauge Stimuplex 4-inch needle was inserted immediately lateral to the femoral artery pulse at the inguinal crease and advanced perpendicularly. The needle was inserted to the ultrasound transducer in-plane towards the femoral nerve in a [id number] direction. Needle advancement was performed carefully under direct ultrasound visualization. Needle visualized under fascia iliaca. After negative aspiration, 5cc of 0.25% Bupivacaine + Epi 1:200,000 was injected and this was followed with 35cc of 0.25% Bupivacaine + Epi 1:200,000. Under ultrasound guidance the local anesthetics were observed spreading below fascia iliaca and around the femoral nerve. The needle was removed intact and sterile dressing was applied. The patient had stable vital signs, was conscious and in no apparent distress. The patient tolerated the femoral nerve block well with stable vital signs.
[2017-11-22] MEDS ORDERED: Lactated Ringer's 500 ML IV ONE (17:00)
[2017-11-22] MEDS ORDERED: ceFAZolin 2 GM in Sodium Chloride 0.9% 100 ML IVPB SCH (17:00)
[2017-11-22 17:02] LABS: SF GROSS APPEARANCE TURBID (CLEAR)
[2017-11-22 17:03] LABS: SYNOVIAL FLUID MONO/MACROPHAGE 6 % (0-0)
[2017-11-22] MEDS ORDERED: HYDROmorphone 0.5 mg/0.5 ml ISec ONE ×2 (17:07)
--- NOTE | 2017-11-22 17:38 | CP.PCM.PN ---
Subjective - Date & Time of Evaluation Date of Evaluation: 11/22/17 Time of Evaluation: 11:00 - Subjective Subjective: All chart and clinical data reviewed . Care resumed hemodynamically stable, afebrile No acute issues overnight. For OR today WBC 6.6 Hgb 10 ESR 91 BP 117/79 HR 98 Objective - Vital Signs/Intake and Output Vital Signs (last 24 hours): Temp Pulse Resp BP Pulse Ox 97.7 F 105 H 18 120/61 100 11/22/17 16:35 11/22/17 16:35 11/22/17 16:35 11/22/17 16:35 11/22/17 16:35 Intake and Output: 11/22/17 11/22/17 06:59 18:59 Intake Total 1825 Balance 1825 - Medications Medications: Current Medications Acetaminophen (Tylenol 325mg Tab) 650 mg PO Q6 PRN PRN Reason: Pain, Mild (1-3) Acetaminophen (Tylenol 325mg Tab) 975 mg PO Q8 [facility] Docusate Sodium (Colace) 100 mg PO BID [facility] Last Admin: 11/22/17 08:41 Dose: 100 mg Duloxetine HCl (Cymbalta) 60 mg PO DAILY [facility] Last Admin: 11/22/17 08:41 Dose: 60 mg Enoxaparin Sodium (Lovenox) 40 mg SC DAILY [facility] PRN Reason: Protocol Ferrous Sulfate (Feosol) 325 mg PO BID [facility] Folic Acid (Folic Acid) 1 mg PO DAILY [facility] Hydromorphone HCl (Dilaudid) 1 mg IVP Q10M PRN PRN Reason: Pain, moderate (4-7) Stop: 11/22/17 18:53 Sodium Chloride (Sodium Chloride 0.9%) 1,000 mls @ 125 mls/hr IV .Q8H [facility] Stop: 11/22/17 20:00 Last Admin: 11/22/17 05:59 Dose: 125 mls/hr Lactated Ringer's (Lactated Ringer's) 1,000 mls @ 100 mls/hr IV .Q10H [facility] Morphine Sulfate (Morphine) 2 mg IVP Q4 PRN PRN Reason: pain 4-10 Last Admin: 11/22/17 11:15 Dose: 2 mg Ondansetron HCl (Zofran Inj) 4 mg IVP Q6 PRN PRN Reason: Nausea/Vomiting Oxycodone HCl (Oxycodone Immediate Release Tab) 10 mg PO Q6 PRN PRN Reason: Pain, moderate (4-7) - Labs Labs: 11/22/17 05:20 11/22/17 05:20 PT 13.7 Seconds (9.8-13.1) H 11/21/17 18:45 INR 1.2 (0.9-1.2) 11/21/17 18:45 APTT 29.7 Seconds (25.6-37.1) 11/21/17 18:45 - Constitutional Appears: Non-toxic, No Acute Distress - Head Exam Head Exam: ATRAUMATIC, NORMOCEPHALIC - Eye Exam Eye Exam: EOMI, PERRL Pupil Exam: NORMAL ACCOMODATION - ENT Exam ENT Exam: Mucous Membranes Moist, Normal Exam - Neck Exam Neck Exam: Full ROM, Normal Inspection - Respiratory Exam Respiratory Exam: Clear to Ausculation Bilateral, NORMAL BREATHING PATTERN. absent: Rales, Rhonchi, Wheezes - Cardiovascular Exam Cardiovascular Exam: REGULAR RHYTHM, RRR, +S1, +S2. absent: JVD - GI/Abdominal Exam GI & Abdominal Exam: Soft, Normal Bowel Sounds. absent: Guarding, Tenderness, Rebound - Rectal Exam Rectal Exam: Deferred - Extremities Exam Additional comments: left knee dressings in place - Neurological Exam Neurological Exam: Alert, Awake, CN II-XII Intact - Psychiatric Exam Psychiatric exam: Normal Affect - Skin Skin Exam: Dry, Warm Assessment and Plan - Assessment and Plan (Free Text) Assessment: 62 year old female with a PMH of left TKR on 09/24/17, also with history of depression on Cymbalta, presented to the ED after noting worsening pain and redness to her left knee and serous drainage from the surgical site. The patient states that she was at physical therapy today when a scab fell off of her wound and it started draining, prompting her to come to the ED. In the ED, the patient was noted to have warmth, tenderness, and erythema to the left knee. She has been admitted for further workup and evaluation by Dr. Trejo. ID consulted for help with antibiotic management Patient to go to OR today . 1. Left TKR with serous drainage Ortho consulted , Dr. Trejo. patient to go to OR today Id consulted . Will hold of antibiotics until cultures sent Pain management 2.Depression Continue Cymbalta 3. Hypokalemia 3.3 Kdur 20 meq po once 4. Mild anemia Hgb 10 unclear etiology Start Ferrous sulfate Transfuse PRN if needed 5. DVT prophylaxis SCDs
--- NOTE | 2017-11-22 18:41 | RAD ---
PROCEDURE: Left Knee Radiographs. HISTORY: Pain. COMPARISON: CT left knee dated 11/21/2017. FINDINGS: There has been prior total left knee arthroplasty. Prosthetic components remain in good alignment. The patient is status post surgical procedure with small amount of expected air and fluid seen within the suprapatellar bursa. Skin mariana are present anteriorly. IMPRESSION: Prior left knee TKA. Hardware remains intact. Postsurgical changes.
[2017-11-22] MEDS: Meropenem 1 GM in Sodium Chloride 0.9% 100 ML IVPB SCH (20:28)
[2017-11-23] MEDS: Lactated Ringer's 1,000 ML IV SCH (02:45)
--- NOTE | 2017-11-23 04:22 | CON ---
DATE: 11/22/2017 INFECTIOUS DISEASE CONSULT HISTORY OF PRESENT ILLNESS: The patient is a 62-year-old female with history of left total knee replacement on 09/24/2017. She has a history of depression, on Cymbalta, and had bilateral hip replacement five years ago. She presented to the emergency room after noting worsening pain and redness to her left knee and serous drainage from the surgical site. The patient states she was at physical therapy today when a scab was removed from the wound and drainage developed. In the ED, the ER physician noted the knee have warmth, tenderness, and erythema . The patient was admitted last night, and to be followed up by Dr. Trejo who today did an incision and drainage procedure. We will review his OR finding as they become available. He took multiple cultures of the knee and drained fluid The patient is immediately postop and a bit subdued. He also gave me a history of spinal surgery with disk fusion 30 years ago also PHYSICAL EXAMINATION: HEENT: Within normal limits. NECK: Supple. LUNGS: Have decreased breath sounds at bases probably due to postoperative situation. GI: Normal bowel sounds. No organomegaly. EXTREMITIES: The patient is immediately postop when seen, so was unable to evaluate the left knee. All I can state is from the chart that she had left knee warmth, erythema, and tenderness to palpation with serous drainage at the surgical site. LABORATORY DATA: Her labs include sodium is 143, chloride 131, BUN 14, creatinine 0.5, GFR greater than 60. Her alkaline phosphatase is 144, C-reactive protein is 164.8, and AST is 23 and ALT is 28. White count is 8.3, hemoglobin 11.8, 309 platelets, 73 polys, and of note, her sed rate is 91. Synovial fluid has 15,346 wbc's; 49,050 rbc's; 88% neutrophils; 11% lymphs, and there was 1 macrophage. IMPRESSION: Infected total knee replacement. PLAN: At present time as I await the results of the cultures and the discussion of the surgery with Dr. Trejo, I have started her on vancomycin 1 gm IV every 12 hours and meropenem 1 gm IV piggy bag every 12 hours. Keaton Grubbs MD MTDLuis M
[2017-11-23 06:43] LABS: HEMOGLOBIN 10.9 g/dL (12.0-16.0); MEAN CORPUSCULAR HEMOGLOBIN 26.2 pg (27.0-31.0); MEAN CORPUSCULAR HGB CONC 32.8 g/dL (33.0-37.0); RBC 4.17 Mil/uL (3.80-5.20); RED CELL DISTRIBUTION WIDTH 15.4 % (11.5-14.5); WHITE BLOOD COUNT 7.4 K/uL (4.8-10.8)
[2017-11-23 06:58] LABS: ALT/SGPT 24 U/L (9-52); AST/SGOT 19 U/L (14-36); BLOOD UREA NITROGEN 10 mg/dl (7-17); CALCIUM 8.2 mg/dL (8.4-10.2); GFR AFRICAN-AMERICAN > 60; GFR NON-AFRICAN AMERICAN > 60
[2017-11-23] MEDS: oxyCODONE 10 mg Immediate Release Tab PO PRN ×2 (07:59→19:50)
[2017-11-23] MEDS: Meropenem 1 GM in Sodium Chloride 0.9% 100 ML IVPB SCH ×2 (08:22→20:00)
--- NOTE | 2017-11-23 10:00 | CP.PCM.PN ---
Subjective - Date & Time of Evaluation Date of Evaluation: 11/23/17 Time of Evaluation: 08:30 - Subjective Subjective: Patient seen and examined bedside. Complains of some pain to left knee. No acute issues overnight, able to rest well tachycardic HR 108 , Tmax 100.7 WBC 7.4 Knee immobilizer and wound vac to left knee Objective - Vital Signs/Intake and Output Vital Signs (last 24 hours): Temp Pulse Resp BP Pulse Ox 98.9 F 108 H 20 99/62 L 93 L 11/23/17 08:26 11/23/17 08:26 11/23/17 08:26 11/23/17 08:26 11/23/17 08:26 Intake and Output: 11/23/17 11/23/17 06:59 18:59 Intake Total 1700 Balance 1700 - Medications Medications: Current Medications Acetaminophen (Tylenol 325mg Tab) 650 mg PO Q6 PRN PRN Reason: Pain, Mild (1-3) Acetaminophen (Tylenol 325mg Tab) 975 mg PO Q8 [facility] Last Admin: 11/23/17 08:28 Dose: 975 mg Docusate Sodium (Colace) 100 mg PO BID [facility] Last Admin: 11/23/17 08:21 Dose: 100 mg Duloxetine HCl (Cymbalta) 60 mg PO DAILY [facility] Last Admin: 11/23/17 08:22 Dose: 60 mg Enoxaparin Sodium (Lovenox) 40 mg SC DAILY [facility] PRN Reason: Protocol Ferrous Sulfate (Feosol) 325 mg PO BID [facility] Last Admin: 11/23/17 08:22 Dose: 325 mg Folic Acid (Folic Acid) 1 mg PO DAILY [facility] Last Admin: 11/23/17 08:22 Dose: 1 mg Lactated Ringer's (Lactated Ringer's) 1,000 mls @ 100 mls/hr IV .Q10H [facility] Last Admin: 11/23/17 02:45 Dose: Not Given Vancomycin HCl 1 gm/ Sodium (Chloride) 250 mls @ 166.667 mls/hr IVPB Q12 [facility] PRN Reason: Protocol Last Admin: 11/23/17 08:29 Dose: 166.667 mls/hr Meropenem 1 gm/ Sodium (Chloride) 100 mls @ 100 mls/hr IVPB Q12 [facility] PRN Reason: Protocol Last Admin: 11/23/17 08:22 Dose: 100 mls/hr Morphine Sulfate (Morphine) 2 mg IVP Q4 PRN PRN Reason: pain 4-10 Last Admin: 11/23/17 06:31 Dose: 2 mg Ondansetron HCl (Zofran Inj) 4 mg IVP Q6 PRN PRN Reason: Nausea/Vomiting Oxycodone HCl (Oxycodone Immediate Release Tab) 10 mg PO Q6 PRN PRN Reason: Pain, moderate (4-7) Last Admin: 11/23/17 07:59 Dose: 10 mg - Labs Labs: 11/23/17 06:20 11/23/17 06:20 PT 13.7 Seconds (9.8-13.1) H 11/21/17 18:45 INR 1.2 (0.9-1.2) 11/21/17 18:45 APTT 29.7 Seconds (25.6-37.1) 11/21/17 18:45 - Constitutional Appears: Non-toxic, No Acute Distress - Head Exam Head Exam: ATRAUMATIC, NORMOCEPHALIC - Eye Exam Eye Exam: EOMI, Normal appearance, PERRL Pupil Exam: NORMAL ACCOMODATION - ENT Exam ENT Exam: Mucous Membranes Moist, Normal Exam - Neck Exam Neck Exam: Full ROM, Normal Inspection - Respiratory Exam Respiratory Exam: Clear to Ausculation Bilateral, NORMAL BREATHING PATTERN. absent: Rales, Rhonchi, Wheezes - Cardiovascular Exam Cardiovascular Exam: REGULAR RHYTHM, RRR, +S1, +S2. absent: JVD - GI/Abdominal Exam GI & Abdominal Exam: Soft, Normal Bowel Sounds. absent: Distended, Guarding, Tenderness, Rebound - Rectal Exam Rectal Exam: Deferred - Extremities Exam Extremities Exam: Full ROM, Normal Capillary Refill Additional comments: left knee dressing and immobilizer in place wound vac present - Back Exam Back Exam: NORMAL INSPECTION - Neurological Exam Neurological Exam: Alert, Awake, CN II-XII Intact, Oriented x3 - Psychiatric Exam Psychiatric exam: Normal Affect - Skin Skin Exam: Dry, Warm Assessment and Plan - Assessment and Plan (Free Text) Assessment: 62 year old female with a PMH of left TKR on 09/24/17, also with history of depression on Cymbalta, presented to the ED after noting worsening pain and redness to her left knee and serous drainage from the surgical site. The patient stated that she was at physical therapy when a scab fell off of her wound and it started draining, prompting her to come to the ED. In the ED, the patient was noted to have warmth, tenderness, and erythema to the left knee. She was admitted for further workup and evaluation by Dr. Trejo. ID consulted for help with antibiotic management Patient went to OR 11/22 that showed infected left knee. 1.infected Left TKR s/p left TKR revision with I& D on 11/[address] Trejo immobilizer and wound vac in place Continue pain medication start PT as per ortho recommendations ID consulted and strated on Vanco and Meropenem IV Follow up culture results will place PICC line for residential IV antibiotics. Patient preferxs to go home for IV antibiotic infusion 2.Depression Continue Cymbalta 3. Hypokalemia 3.5 Kdur 10 meq po once 4. Mild anemia Hgb 10 unclear etiology Started Ferrous sulfate Transfused 1 unit PRBC in OR 5. DVT prophylaxis SCDs Lovenox as per ortho
--- NOTE | 2017-11-23 10:10 | CP.PCM.PN ---
Subjective - Date & Time of Evaluation Date of Evaluation: 11/23/17 Time of Evaluation: 10:07 - Subjective Subjective: Patient states pain is well controlled. Denies CP/SOB/dizzness. Objective - Vital Signs/Intake and Output Vital Signs (last 24 hours): Temp Pulse Resp BP Pulse Ox 98.9 F 108 H 20 99/62 L 93 L 11/23/17 08:26 11/23/17 08:26 11/23/17 08:26 11/23/17 08:26 11/23/17 08:26 Intake and Output: 11/23/17 11/23/17 06:59 18:59 Intake Total 1700 Balance 1700 - Medications Medications: Current Medications Acetaminophen (Tylenol 325mg Tab) 650 mg PO Q6 PRN PRN Reason: Pain, Mild (1-3) Acetaminophen (Tylenol 325mg Tab) 975 mg PO Q8 [facility] Last Admin: 11/23/17 08:28 Dose: 975 mg Docusate Sodium (Colace) 100 mg PO BID [facility] Last Admin: 11/23/17 08:21 Dose: 100 mg Duloxetine HCl (Cymbalta) 60 mg PO DAILY [facility] Last Admin: 11/23/17 08:22 Dose: 60 mg Enoxaparin Sodium (Lovenox) 40 mg SC DAILY [facility] PRN Reason: Protocol Ferrous Sulfate (Feosol) 325 mg PO BID [facility] Last Admin: 11/23/17 08:22 Dose: 325 mg Folic Acid (Folic Acid) 1 mg PO DAILY [facility] Last Admin: 11/23/17 08:22 Dose: 1 mg Lactated Ringer's (Lactated Ringer's) 1,000 mls @ 100 mls/hr IV .Q10H [facility] Last Admin: 11/23/17 02:45 Dose: Not Given Vancomycin HCl 1 gm/ Sodium (Chloride) 250 mls @ 166.667 mls/hr IVPB Q12 [facility] PRN Reason: Protocol Last Admin: 11/23/17 08:29 Dose: 166.667 mls/hr Meropenem 1 gm/ Sodium (Chloride) 100 mls @ 100 mls/hr IVPB Q12 [facility] PRN Reason: Protocol Last Admin: 11/23/17 08:22 Dose: 100 mls/hr Morphine Sulfate (Morphine) 2 mg IVP Q4 PRN PRN Reason: pain 4-10 Last Admin: 11/23/17 06:31 Dose: 2 mg Ondansetron HCl (Zofran Inj) 4 mg IVP Q6 PRN PRN Reason: Nausea/Vomiting Oxycodone HCl (Oxycodone Immediate Release Tab) 10 mg PO Q6 PRN PRN Reason: Pain, moderate (4-7) Last Admin: 11/23/17 07:59 Dose: 10 mg - Labs Labs: 11/23/17 06:20 11/23/17 06:20 PT 13.7 Seconds (9.8-13.1) H 11/21/17 18:45 INR 1.2 (0.9-1.2) 11/21/17 18:45 APTT 29.7 Seconds (25.6-37.1) 11/21/17 18:45 - Extremities Exam Additional comments: +ROM ankle/toes, sensation intact, no drainage in canister, +DP/PT pulses calves soft NT neg hoamns Assessment and Plan - Assessment and Plan (Free Text) Assessment: PDO#1 s/p left knee I&D, poly exchange intraop specimens consistent with infection f/u cultures knee immobilizer at all times foot flat WB for PICC today cont prevena dressing f/u cultures, plan min 6 weeks IV abx as per ID d/w Dr. Trejo, agrees with above
[2017-11-23] MEDS ORDERED: Potassium Chloride 20 mEq/15 ml LIQ UD PO ONE (10:15)
[2017-11-23] MEDS ORDERED: Lidocaine 1% Inj (20ml) ONE (10:34)
--- NOTE | 2017-11-23 10:56 | PCM.SURG1 ---
Surgeon's Initial Post Op Note - Surgeon's Notes Surgeon: Teresa Sales Incentive Analyst: None Type of Anesthesia: Local Pre-Operative Diagnosis: Infection Operative Findings: Right brachial vein patent Post-Operative Diagnosis: Infection Operation Performed: Right PICC placed in the brachial vein sixe 34cm SL 4F Specimen/Specimens Removed: None Estimated Blood Loss: EBL {In ML}: 1 Blood Products Given: N/A Drains Used: No Drains Post-Op Condition: Good Date of Surgery/Procedure: 11/23/17 Time of Surgery/Procedure: 10:45
--- NOTE | 2017-11-23 11:46 | CP.PCM.PN ---
Subjective - Date & Time of Evaluation Date of Evaluation: 11/23/17 Time of Evaluation: 11:00 - Subjective Subjective: NO CHEST PAIN OR SOB Objective - Vital Signs/Intake and Output Vital Signs (last 24 hours): Temp Pulse Resp BP Pulse Ox 99.6 F 109 H 18 129/62 99 11/23/17 10:57 11/23/17 10:57 11/23/17 10:57 11/23/17 10:57 11/23/17 10:57 Intake and Output: 11/23/17 11/23/17 06:59 18:59 Intake Total 1700 Balance 1700 - Medications Medications: Current Medications Acetaminophen (Tylenol 325mg Tab) 650 mg PO Q6 PRN PRN Reason: Pain, Mild (1-3) Acetaminophen (Tylenol 325mg Tab) 975 mg PO Q8 [facility] Last Admin: 11/23/17 08:28 Dose: 975 mg Docusate Sodium (Colace) 100 mg PO BID [facility] Last Admin: 11/23/17 08:21 Dose: 100 mg Duloxetine HCl (Cymbalta) 60 mg PO DAILY [facility] Last Admin: 11/23/17 08:22 Dose: 60 mg Enoxaparin Sodium (Lovenox) 40 mg SC DAILY [facility] PRN Reason: Protocol Ferrous Sulfate (Feosol) 325 mg PO BID [facility] Last Admin: 11/23/17 08:22 Dose: 325 mg Folic Acid (Folic Acid) 1 mg PO DAILY [facility] Last Admin: 11/23/17 08:22 Dose: 1 mg Lactated Ringer's (Lactated Ringer's) 1,000 mls @ 100 mls/hr IV .Q10H [facility] Last Admin: 11/23/17 02:45 Dose: Not Given Vancomycin HCl 1 gm/ Sodium (Chloride) 250 mls @ 166.667 mls/hr IVPB Q12 [facility] PRN Reason: Protocol Last Admin: 11/23/17 08:29 Dose: 166.667 mls/hr Meropenem 1 gm/ Sodium (Chloride) 100 mls @ 100 mls/hr IVPB Q12 [facility] PRN Reason: Protocol Last Admin: 11/23/17 08:22 Dose: 100 mls/hr Morphine Sulfate (Morphine) 2 mg IVP Q4 PRN PRN Reason: pain 4-10 Last Admin: 11/23/17 11:01 Dose: 2 mg Ondansetron HCl (Zofran Inj) 4 mg IVP Q6 PRN PRN Reason: Nausea/Vomiting Oxycodone HCl (Oxycodone Immediate Release Tab) 10 mg PO Q6 PRN PRN Reason: Pain, moderate (4-7) Last Admin: 11/23/17 07:59 Dose: 10 mg - Labs Labs: 11/23/17 06:20 11/23/17 06:20 PT 13.7 Seconds (9.8-13.1) H 11/21/17 18:45 INR 1.2 (0.9-1.2) 11/21/17 18:45 APTT 29.7 Seconds (25.6-37.1) 11/21/17 18:45 - Respiratory Exam Respiratory Exam: Clear to Ausculation Bilateral - Cardiovascular Exam Cardiovascular Exam: REGULAR RHYTHM, +S1, +S2 - Extremities Exam Additional comments: LLE IMMOBILIZER - Additional Findings Additional findings: OR NOTES REVIEWED Assessment and Plan - Assessment and Plan (Free Text) Assessment: S/P SURGERY FOR INFECTED LEFT KNEE Plan: CONTINUE IV ANTIBIOTICS AND LOVENOX PICC LINE INSERTED
[2017-11-23 12:15] LABS: BLOOD UREA NITROGEN 9 mg/dl (7-17); CALCIUM 8.2 mg/dL (8.4-10.2); GFR AFRICAN-AMERICAN > 60; GFR NON-AFRICAN AMERICAN > 60
[2017-11-23] MEDS: Enoxaparin 40 mg Syringe SC SCH (12:28)
--- NOTE | 2017-11-23 16:45 | OP ---
PROCEDURE DATE: 11/22/2017 LOCATION: [facility]. PREOPERATIVE DIAGNOSIS: Septic left total knee replacement. POSTOPERATIVE DIAGNOSES: Septic left total knee replacement, greater than 100 white cells per high-power field on stat Gram stain, but no organisms. OPERATIVE FINDINGS: 1. Septic left total knee replacement. 2. Severe synovitis. OPERATIONS PERFORMED: 1. Revision total knee replacement arthroplasty, one component. 2. Repair/reinforcement of patellar ligament. 3. Posterior capsular release. 4. Anterior and posterior synovectomy. 5. Excision of skin, subcutaneous tissue and muscle. 6. Application of Prevena wound vacuum-assisted closure. SURGEON: Tal Trejo MD BOXING INSTRUCTOR: Jose Bailey PA-C SECOND SWING TYPE LATHE OPERATOR: Johan Garrett PA-C. ANESTHESIA: General endotracheal anesthesia and regional block. ANESTHESIOLOGIST: Ken Oakes MD, relieved by Dr. Mendez. SPECIMENS REMOVED: Synovium skin, subcutaneous tissue and muscle. ESTIMATED BLOOD LOSS: Approximately 75 mL. BLOOD PRODUCTS: No blood products given. DRAIN USED: Wound VAC. TIME OF PROCEDURE: 1420. TIME IN THE ROOM: 1335. OPERATIVE INDICATION: Jagruti Billingsley is a woman who had a successful total knee replacement approximately six to seven weeks ago. The patient was doing quite well. She developed spontaneous drainage last week. The patient was admitted through the emergency room. The patient presented to the emergency room with worrisome drainage, temperature, increasing pain and restricted range of motion. Pros, cons, risks and benefits of surgical approach were discussed. Since the patient still was in the perioperative period, the concept of incision and drainage and revision of the tibial component with exchange of the polyethylene spacer was discussed. Possibility of mechanical failure, infection, stiffness, secondary or tertiary surgery was discussed. If the knee continues to infect after this procedure, the components will need to be removed and insertion of antibiotic-impregnated spacer. The patient no longer withstand the discomfort and wished the surgery to be accomplished. OPERATIVE PROCEDURE: After having obtained informed consent, after having identified the side, site and procedure and a critical pause/time-out, after the satisfactory induction of the anesthetic, the patient identified as Jagruti Billingsley in the supine position with all bony prominences well padded. The left lower extremity was prepped and free draped in the usual fashion for lower extremity surgery. It should be noted that the infectious disease promotions team leader by Dr. Grubbs has evaluated the patient from an infectious disease point of view. The patient again is aware of the gravity of the situation and the need for rapid surgery. The attempt to retain the prosthesis was discussed as well as the possibility of removing the components and insertion of antibiotic-impregnated spacer either at this setting or a secondary setting. After medical stabilization and clearance, after Infectious Disease consultation, after having obtained informed consent in the above fashion, after the satisfactory induction of general and regional anesthesia, after having identified the side, site and procedure and a critical pause/time-out, the patient identified as Jagruti Billingsley in the supine position with all bony prominence well padded, the left lower extremity was prepped and free draped in the usual fashion for lower extremity surgery. The tourniquet had been applied, but was not yet inflated. After ensuring all bony prominences were well padded, after exsanguinating the limb using a 6-inch Esmarch bandage, tourniquet which had been applied was inflated to 350 mmHg. The initial incision was extended two fingerbreadths distally and two fingerbreadths proximally. An ellipse of skin and subcutaneous tissue was removed. The skin incision was carried down through the skin and subcutaneous tissue. Dissection was carried down to the level of the prepatellar bursa and it was noted that there was exuberant synovitis and gelatinous purulent material in the knee joint. This was identified. This having been accomplished, a medial arthrotomy was accomplished. Great care was taken in performing the medial arthrotomy. The fluid was expressed and was found to be purulent and was sent for stat Gram stain with number of white cells per high-power field. At this point in time, dissection was carried around posteromedially to the direct head of the semimembranosus tendon. The lateral aspect of the joint was identified. Two K-wires were placed in the tibial tuberosity and the patellar ligament to avoid compromise. This having been accomplished, there was some compromise of the patellar ligament because the friable nature of the tissue. Aspirate having been accomplished, the stat Gram stain was found to have over 100 white cells per high-power field, but no evidence of organisms. This having been accomplished, debulking of the knee begins as there was atrophic amount of a mottled synovitis. A thorough anterior synovectomy and posterior synovectomy was accomplished. The tibia was dislocated anteriorly and the polyethylene component was removed as well as the screw of this Medacta tibial component. Thorough and aggressive synovectomy was accomplished in the medial gutter, lateral gutter, posterior aspect of the patellar ligament and anterior aspect of the femur. This having been accomplished, great care again having been taken to elevate a portion of the patellar ligament. The patellar ligament remains intact grossly, but will need to be reinforced. Dissection was carried out posterolaterally to the iliotibial band insertion. This was carefully released. The tibia having been dislocated anteriorly, the polyethylene was removed. This having been accomplished, there was found to be no loosening of any the components. The interface on the patellar component, the femoral component and the tibial component was noted. The interface was pressed with the periosteal elevator with no expression of blood. There was no evidence of loosening. An aggressive anterior and posterior synovectomy was accomplished. Synovectomy in the lateral gutter was accomplished. Synovectomy medially was accomplished. Synovectomy deep to the quadriceps tendon was accomplished as well as the exuberant tissue around the patella. The polyethylene having been removed, trialing was accomplished with the 17 mm polyethylene. Reduction was accomplished and there was found to be stability in all planes. It should be noted that an ellipse of skin, subcutaneous tissue, and muscle had been removed. At this point in time, the wound was thoroughly irrigated with 9 liters of antibiotic impregnated solution as well as the use of the Irrisept solution as well. This having been accomplished, secondary Gram stains were obtained. Two sets of aerobic, anaerobic, AFB and fungal cultures were accomplished. This having been accomplished, the tibial polyethylene was inserted, 17 mm and affixed with a screw. The previous polyethylene was sent for pathology and there was found to be evidence of a biofilm. This had been cultured as well. This having been accomplished, the wound was thoroughly irrigated. The pins were removed affixing the patellar ligament and an Arthrex suture anchor was placed in the proximal medial aspect of the tibia to reinforce the patellar ligament and the closure to the medial retinaculum. Closure of the medial arthrotomy was with #2 FiberWire, #1 Vicryl. The wound again was thoroughly irrigated after the closure of that tissue. Closure was completed with 0 Vicryl, 2-0 Vicryl and mariana for the skin. At this point in time, a Prevena wound VAC was applied. The wound VAC was applied in the standard fashion. The incision was measured. The Prevena pad was affixed to the skin after the aperture was created with a scissor for the wound VAC. The wound VAC was applied to the anterior aspect of the incision. After closure, Alex Toney compression dressing and knee immobilizers applied. Again, all Gram stain was reviewed. Aerobic, anaerobic, AFB and fungal cultures have been rendered. Alex Toney compression dressing and knee immobilizers applied. It should be noted that a posterior capsular release had been accomplished as well because there was tightness of the posterior capsule as the tibia was dislocated anteriorly. The posterior capsule was identified and a posterior capsular release was accomplished. This accounts for the increase in the gap to accommodate a 17 mm polyethylene component. OPERATIVE PROCEDURE: Again in summary: 1. Revision left total knee replacement, one component. 2. Repair/reinforcement of patellar ligament. 3. Posterior capsular release. 4. Anterior and posterior synovectomy. 5. Excision of skin, subcutaneous tissue and muscle. 6. Application of Prevena wound vacuum-assisted closure. Tal Trejo MD
[2017-11-24] MEDS: oxyCODONE 10 mg Immediate Release Tab PO PRN ×2 (08:13→16:41)
[2017-11-24] MEDS: Enoxaparin 40 mg Syringe SC SCH (08:16)
[2017-11-24] MEDS: Meropenem 1 GM in Sodium Chloride 0.9% 100 ML IVPB SCH ×2 (08:16→20:05)
[2017-11-24 12:07] LABS: HEMOGLOBIN 10.6 g/dL (12.0-16.0); MEAN CELL VOLUME 78.8 fl (81.0-99.0); MEAN CORPUSCULAR HEMOGLOBIN 26.8 pg (27.0-31.0); MEAN CORPUSCULAR HGB CONC 33.9 g/dL (33.0-37.0); RBC 3.95 Mil/uL (3.80-5.20); RED CELL DISTRIBUTION WIDTH 15.4 % (11.5-14.5); WHITE BLOOD COUNT 7.8 K/uL (4.8-10.8)
--- NOTE | 2017-11-24 12:13 | CP.PCM.PN ---
Subjective - Date & Time of Evaluation Date of Evaluation: 11/24/17 Time of Evaluation: 12:14 - Subjective Subjective: I D NOTE HAVE DISCUSSED c AND THE PATIENT WILL NOT BE DISCHARGED TODAY WISH TO BE CERTAIN ON VANCOMYCIN LEVELS , AND RENAL FUNCTION BEFORE DISCHARGE TO HOME. FOLLOW UP CULTURES FROM O.R. ARE ALL NEGATIVE SO FAR. CONSIDERING SEVERITY OF DRAINAGE PER DISCUSSION c ORTHOPAEDICS WILL RX c GRAM(+) & GRAM(-) COVERAGE FOR PRESENT VANCOMYCIN AND MEROPENEM(carbapenem class) LABS ORDERED. Objective - Vital Signs/Intake and Output Vital Signs (last 24 hours): Temp Pulse Resp BP Pulse Ox 98.0 F 101 H 19 103/58 L 94 L 11/24/17 08:40 11/24/17 08:40 11/24/17 08:40 11/24/17 08:40 11/24/17 08:40 Intake and Output: 11/24/17 11/24/17 06:59 18:59 Output Total 0 Balance 0 - Medications Medications: Current Medications Acetaminophen (Tylenol 325mg Tab) 650 mg PO Q6 PRN PRN Reason: Pain, Mild (1-3) Acetaminophen (Tylenol 325mg Tab) 975 mg PO Q8 [facility] Last Admin: 11/24/17 10:11 Dose: 975 mg Docusate Sodium (Colace) 100 mg PO BID [facility] Last Admin: 11/24/17 08:15 Dose: 100 mg Duloxetine HCl (Cymbalta) 60 mg PO DAILY [facility] Last Admin: 11/24/17 08:16 Dose: 60 mg Enoxaparin Sodium (Lovenox) 40 mg SC DAILY [facility] PRN Reason: Protocol Last Admin: 11/24/17 08:16 Dose: 40 mg Ferrous Sulfate (Feosol) 325 mg PO BID [facility] Last Admin: 11/24/17 08:16 Dose: 325 mg Folic Acid (Folic Acid) 1 mg PO DAILY [facility] Last Admin: 11/24/17 08:16 Dose: 1 mg Lactated Ringer's (Lactated Ringer's) 1,000 mls @ 100 mls/hr IV .Q10H [facility] Last Admin: 11/23/17 02:45 Dose: Not Given Vancomycin HCl 1 gm/ Sodium (Chloride) 250 mls @ 166.667 mls/hr IVPB Q12 [facility] PRN Reason: Protocol Last Admin: 11/24/17 10:12 Dose: 166.667 mls/hr Meropenem 1 gm/ Sodium (Chloride) 100 mls @ 100 mls/hr IVPB Q12 [facility] PRN Reason: Protocol Last Admin: 11/24/17 08:16 Dose: 100 mls/hr Morphine Sulfate (Morphine) 2 mg IVP Q4 PRN PRN Reason: pain 4-10 Last Admin: 11/23/17 15:20 Dose: 2 mg Ondansetron HCl (Zofran Inj) 4 mg IVP Q6 PRN PRN Reason: Nausea/Vomiting Oxycodone HCl (Oxycodone Immediate Release Tab) 10 mg PO Q6 PRN PRN Reason: Pain, moderate (4-7) Last Admin: 11/24/17 08:13 Dose: 10 mg - Labs Labs: 11/23/17 06:20 11/23/17 11:55 PT 13.7 Seconds (9.8-13.1) H 11/21/17 18:45 INR 1.2 (0.9-1.2) 11/21/17 18:45 APTT 29.7 Seconds (25.6-37.1) 11/21/17 18:45
--- NOTE | 2017-11-24 15:38 | CP.PCM.PN ---
Subjective - Date & Time of Evaluation Date of Evaluation: 11/24/17 Time of Evaluation: 14:00 - Subjective Subjective: NO CHEST PAIN OR SOB FEELS OK Objective - Vital Signs/Intake and Output Vital Signs (last 24 hours): Temp Pulse Resp BP Pulse Ox 98.0 F 101 H 19 103/58 L 94 L 11/24/17 08:40 11/24/17 08:40 11/24/17 08:40 11/24/17 08:40 11/24/17 08:40 Intake and Output: 11/24/17 11/24/17 06:59 18:59 Output Total 0 Balance 0 - Medications Medications: Current Medications Acetaminophen (Tylenol 325mg Tab) 650 mg PO Q6 PRN PRN Reason: Pain, Mild (1-3) Acetaminophen (Tylenol 325mg Tab) 975 mg PO Q8 [facility] Last Admin: 11/24/17 10:11 Dose: 975 mg Docusate Sodium (Colace) 100 mg PO BID [facility] Last Admin: 11/24/17 08:15 Dose: 100 mg Duloxetine HCl (Cymbalta) 60 mg PO DAILY [facility] Last Admin: 11/24/17 08:16 Dose: 60 mg Enoxaparin Sodium (Lovenox) 40 mg SC DAILY [facility] PRN Reason: Protocol Last Admin: 11/24/17 08:16 Dose: 40 mg Ferrous Sulfate (Feosol) 325 mg PO BID [facility] Last Admin: 11/24/17 08:16 Dose: 325 mg Folic Acid (Folic Acid) 1 mg PO DAILY [facility] Last Admin: 11/24/17 08:16 Dose: 1 mg Lactated Ringer's (Lactated Ringer's) 1,000 mls @ 100 mls/hr IV .Q10H [facility] Last Admin: 11/23/17 02:45 Dose: Not Given Vancomycin HCl 1 gm/ Sodium (Chloride) 250 mls @ 166.667 mls/hr IVPB Q12 [facility] PRN Reason: Protocol Last Admin: 11/24/17 10:12 Dose: 166.667 mls/hr Meropenem 1 gm/ Sodium (Chloride) 100 mls @ 100 mls/hr IVPB Q12 [facility] PRN Reason: Protocol Last Admin: 11/24/17 08:16 Dose: 100 mls/hr Morphine Sulfate (Morphine) 2 mg IVP Q4 PRN PRN Reason: pain 4-10 Last Admin: 11/23/17 15:20 Dose: 2 mg Ondansetron HCl (Zofran Inj) 4 mg IVP Q6 PRN PRN Reason: Nausea/Vomiting Oxycodone HCl (Oxycodone Immediate Release Tab) 10 mg PO Q6 PRN PRN Reason: Pain, moderate (4-7) Last Admin: 11/24/17 08:13 Dose: 10 mg - Labs Labs: 11/24/17 11:47 11/23/17 11:55 PT 13.7 Seconds (9.8-13.1) H 11/21/17 18:45 INR 1.2 (0.9-1.2) 11/21/17 18:45 APTT 29.7 Seconds (25.6-37.1) 11/21/17 18:45 - Respiratory Exam Respiratory Exam: Clear to Ausculation Bilateral - Cardiovascular Exam Cardiovascular Exam: REGULAR RHYTHM, +S1, +S2 - Extremities Exam Additional comments: LLE WITH IMMOBILIZER - Additional Findings Additional findings: ID NOTE REVIEWED Assessment and Plan - Assessment and Plan (Free Text) Assessment: S/P LEFT KNEE INFECTION Plan: CONTINUE ANTIBIOTICS AND LOVENOX
--- NOTE | 2017-11-24 16:16 | CP.PCM.PN ---
Subjective - Date & Time of Evaluation Date of Evaluation: 11/24/17 Time of Evaluation: 14:00 - Subjective Subjective: Patient seen and examined. Claimed she was doing fine with pain being tolerable. Objective - Vital Signs/Intake and Output Vital Signs (last 24 hours): Temp Pulse Resp BP Pulse Ox 98.2 F 104 H 18 101/66 94 L 11/24/17 16:06 11/24/17 16:06 11/24/17 16:06 11/24/17 16:06 11/24/17 16:06 Intake and Output: 11/24/17 11/24/17 06:59 18:59 Output Total 0 Balance 0 - Medications Medications: Current Medications Acetaminophen (Tylenol 325mg Tab) 650 mg PO Q6 PRN PRN Reason: Pain, Mild (1-3) Acetaminophen (Tylenol 325mg Tab) 975 mg PO Q8 [facility] Last Admin: 11/24/17 10:11 Dose: 975 mg Docusate Sodium (Colace) 100 mg PO BID [facility] Last Admin: 11/24/17 08:15 Dose: 100 mg Duloxetine HCl (Cymbalta) 60 mg PO DAILY [facility] Last Admin: 11/24/17 08:16 Dose: 60 mg Enoxaparin Sodium (Lovenox) 40 mg SC DAILY [facility] PRN Reason: Protocol Last Admin: 11/24/17 08:16 Dose: 40 mg Ferrous Sulfate (Feosol) 325 mg PO BID [facility] Last Admin: 11/24/17 08:16 Dose: 325 mg Folic Acid (Folic Acid) 1 mg PO DAILY [facility] Last Admin: 11/24/17 08:16 Dose: 1 mg Lactated Ringer's (Lactated Ringer's) 1,000 mls @ 100 mls/hr IV .Q10H [facility] Last Admin: 11/23/17 02:45 Dose: Not Given Vancomycin HCl 1 gm/ Sodium (Chloride) 250 mls @ 166.667 mls/hr IVPB Q12 [facility] PRN Reason: Protocol Last Admin: 11/24/17 10:12 Dose: 166.667 mls/hr Meropenem 1 gm/ Sodium (Chloride) 100 mls @ 100 mls/hr IVPB Q12 [facility] PRN Reason: Protocol Last Admin: 11/24/17 08:16 Dose: 100 mls/hr Morphine Sulfate (Morphine) 2 mg IVP Q4 PRN PRN Reason: pain 4-10 Last Admin: 11/23/17 15:20 Dose: 2 mg Ondansetron HCl (Zofran Inj) 4 mg IVP Q6 PRN PRN Reason: Nausea/Vomiting Oxycodone HCl (Oxycodone Immediate Release Tab) 10 mg PO Q6 PRN PRN Reason: Pain, moderate (4-7) Last Admin: 11/24/17 08:13 Dose: 10 mg - Labs Labs: 11/24/17 11:47 11/23/17 11:55 PT 13.7 Seconds (9.8-13.1) H 11/21/17 18:45 INR 1.2 (0.9-1.2) 11/21/17 18:45 APTT 29.7 Seconds (25.6-37.1) 11/21/17 18:45 - Constitutional Appears: No Acute Distress - Head Exam Head Exam: ATRAUMATIC - Eye Exam Eye Exam: absent: Scleral icterus - ENT Exam ENT Exam: Mucous Membranes Moist - Neck Exam Neck Exam: absent: Meningismus - Respiratory Exam Respiratory Exam: absent: Rales, Rhonchi, Wheezes, Respiratory Distress - Cardiovascular Exam Cardiovascular Exam: REGULAR RHYTHM, +S1, +S2 - GI/Abdominal Exam GI & Abdominal Exam: Soft. absent: Tenderness - Rectal Exam Rectal Exam: Deferred - Extremities Exam Extremities Exam: absent: Full ROM (left knee on immobilizer) - Back Exam Back Exam: absent: tenderness - Neurological Exam Neurological Exam: Alert, Oriented x3 - Psychiatric Exam Psychiatric exam: Normal Affect - Skin Skin Exam: Dry, Intact Assessment and Plan - Assessment and Plan (Free Text) Assessment: 62 yo female with history of depression had left TKR on 09/24/2017, came back because of pain, swelling and redness of the left knee accompanied with serous discharge on the surgical site. Patient was admitted and had ID and orthopedic consult. She was started on IV antibiotics and had revision of left TKR on 2017. 1. 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 Depression Continue Cymbalta 3. Hypokalemia 3.3 received Kdur 10 meq yesterday CMP ordered for tomorrow 4. Mild anemia Hgb 10.6 continue Ferrous sulfate received 1 unit PRBC in OR 5. DVT prophylaxis SCDs on Lovenox
[2017-11-24] MEDS: Lactated Ringer's 1,000 ML IV SCH ×2 (16:42→19:43)
--- NOTE | 2017-11-24 16:59 | VASCULAR ---
Procedure: Ultrasound and fluoroscopically placed Right upper extremity PICC. Clinical indication: Long-term IV antibiotics. Technique: The relative risks and indications of the procedure were explained to the patient and written informed consent obtained. The patient was placed supine on the angiographic table and the right arm prepped and draped in the usual sterile fashion. A tourniquet was applied to the right axilla. 1% lidocaine was used to anesthetize the skin and soft tissues at the puncture site above the elbow. The right basilic vein was punctured under direct ultrasound guidance with a micropuncture set. A permanent image was stored. A 0.018 guidewire was advanced centrally and used to measure the length to the SVC/RA junction. A 4 [place]an single-lumen PICC, size 34 cm, was advanced to the SVC/RA junction under fluoroscopic guidance. The catheter was flushed and secured. The patient tolerated the procedure well. Postprocedure chest image was obtained to ensure location of the catheter tip at the SVC right atrial junction. Impression: Ultrasound and fluoroscopically placed right upper extremity PICC. A 4 Singaporean single-lumen PICC, size 32 cm was advanced to the SVC/RA junction. PICC ready for use.
[2017-11-25 07:29] LABS: ALB/GLOB RATIO 0.9 (1.0-2.1); ALT/SGPT 19 U/L (9-52); AST/SGOT 19 U/L (14-36); BLOOD UREA NITROGEN 9 mg/dl (7-17); CALCIUM 8.5 mg/dL (8.4-10.2); GFR AFRICAN-AMERICAN > 60; GFR NON-AFRICAN AMERICAN > 60
[2017-11-25] MEDS ORDERED: Potassium Chloride 20 mEq ER Tab PO ONE (07:35)
[2017-11-25] MEDS: Enoxaparin 40 mg Syringe SC SCH (08:25)
[2017-11-25] MEDS: Meropenem 1 GM in Sodium Chloride 0.9% 100 ML IVPB SCH (08:26)
[2017-11-25] MEDS: oxyCODONE 10 mg Immediate Release Tab PO PRN ×2 (08:38→17:28)
[2017-11-25] MEDS ORDERED: Potassium Chloride 20 mEq/15 ml LIQ UD PO ONE (09:12)
--- NOTE | 2017-11-25 09:13 | CP.PCM.PN ---
Subjective - Date & Time of Evaluation Date of Evaluation: 11/25/17 Time of Evaluation: 09:30 - Subjective Subjective: Patient seen and examined bedside. Feeling better . with some pain to left knee but well controlled with pain management No acute issues overnight Hemodynamically stable, afebrile > 24 hours Wound vac to left knee Objective - Vital Signs/Intake and Output Vital Signs (last 24 hours): Temp Pulse Resp BP Pulse Ox 98.4 F 89 20 120/73 96 11/25/17 07:43 11/25/17 07:43 11/25/17 07:43 11/25/17 07:43 11/25/17 07:43 - Medications Medications: Current Medications Acetaminophen (Tylenol 325mg Tab) 650 mg PO Q6 PRN PRN Reason: Pain, Mild (1-3) Acetaminophen (Tylenol 325mg Tab) 975 mg PO Q8 [facility] Last Admin: 11/25/17 08:36 Dose: 975 mg Docusate Sodium (Colace) 100 mg PO BID [facility] Last Admin: 11/25/17 08:21 Dose: 100 mg Duloxetine HCl (Cymbalta) 60 mg PO DAILY [facility] Last Admin: 11/25/17 08:24 Dose: 60 mg Enoxaparin Sodium (Lovenox) 40 mg SC DAILY [facility] PRN Reason: Protocol Last Admin: 11/25/17 08:25 Dose: 40 mg Ferrous Sulfate (Feosol) 325 mg PO BID [facility] Last Admin: 11/25/17 08:24 Dose: 325 mg Folic Acid (Folic Acid) 1 mg PO DAILY [facility] Last Admin: 11/25/17 08:25 Dose: 1 mg Lactated Ringer's (Lactated Ringer's) 1,000 mls @ 100 mls/hr IV .Q10H [facility] Last Admin: 11/24/17 19:43 Dose: Not Given Vancomycin HCl 1 gm/ Sodium (Chloride) 250 mls @ 166.667 mls/hr IVPB Q12 [facility] PRN Reason: Protocol Last Admin: 11/25/17 08:39 Dose: 166.667 mls/hr Meropenem 1 gm/ Sodium (Chloride) 100 mls @ 100 mls/hr IVPB Q12 [facility] PRN Reason: Protocol Last Admin: 11/25/17 08:26 Dose: 100 mls/hr Morphine Sulfate (Morphine) 2 mg IVP Q4 PRN PRN Reason: pain 4-10 Last Admin: 11/23/17 15:20 Dose: 2 mg Ondansetron HCl (Zofran Inj) 4 mg IVP Q6 PRN PRN Reason: Nausea/Vomiting Oxycodone HCl (Oxycodone Immediate Release Tab) 10 mg PO Q6 PRN PRN Reason: Pain, moderate (4-7) Last Admin: 11/25/17 08:38 Dose: 10 mg Potassium Chloride (Potassium Chloride Oral Soln) 10 meq PO ONCE ONE Stop: 11/25/17 09:13 - Labs Labs: 11/24/17 11:47 11/25/17 05:30 PT 13.7 Seconds (9.8-13.1) H 11/21/17 18:45 INR 1.2 (0.9-1.2) 11/21/17 18:45 APTT 29.7 Seconds (25.6-37.1) 11/21/17 18:45 - Constitutional Appears: Non-toxic, No Acute Distress - Head Exam Head Exam: ATRAUMATIC, NORMAL INSPECTION, NORMOCEPHALIC - Eye Exam Eye Exam: EOMI, Normal appearance, PERRL Pupil Exam: NORMAL ACCOMODATION - ENT Exam ENT Exam: Mucous Membranes Moist, Normal Exam - Neck Exam Neck Exam: Full ROM, Normal Inspection - Respiratory Exam Respiratory Exam: Clear to Ausculation Bilateral, Rales - Cardiovascular Exam Cardiovascular Exam: REGULAR RHYTHM, RRR, +S1, +S2. absent: JVD - GI/Abdominal Exam GI & Abdominal Exam: Soft, Normal Bowel Sounds. absent: Distended, Guarding, Tenderness, Rebound - Rectal Exam Rectal Exam: Deferred - Extremities Exam Additional comments: left knee linda wrapping and immobilizer wound vac in place - Back Exam Back Exam: NORMAL INSPECTION - Neurological Exam Neurological Exam: Alert, Awake, CN II-XII Intact, Oriented x3 - Psychiatric Exam Psychiatric exam: Normal Affect, Normal Mood - Skin Skin Exam: Dry, Intact, Normal Color, Warm Assessment and Plan - Assessment and Plan (Free Text) Assessment: 62 yo female with history of depression had left TKR on 09/24/2017, came back because of pain, swelling and redness of the left knee accompanied with serous discharge on the surgical site. Patient was admitted and had ID and orthopedic consult. She was started on IV antibiotics and had revision of left TKR on 2017 At present post op day 3 and doing well. All cultures negative so far 1. Infected Left TKR I&D and Post Revision of Left TKR, POD#3 immobilizer and wound vac in place pain tolerable with pain medication tolerating PT Dr Grubbs on ID consult continue IV Vanco and Meropenem Cultures with no growth so far ESR elevated 83, procalcitonin - normal PICC line in place for fpc IV antibiotics Will follow up with ortho and ID about discharge home 2. Depression Continue Cymbalta 3. Hypokalemia Will give Kdur 20 meq BMP in AM 4. Mild anemia Hgb 10.6 continue Ferrous sulfate received 1 unit PRBC in OR 5. DVT prophylaxis SCDs on Lovenox
--- NOTE | 2017-11-25 13:56 | CP.PCM.PN ---
Subjective - Date & Time of Evaluation Date of Evaluation: 11/25/17 Time of Evaluation: 11:50 - Subjective Subjective: o I D NOTE PATIENT HAS STATED THAT SHE WILL ATAY BASED ON MY DISCUSSION c HER WILL CHECK LABS AND CONTINUE VANCOMYCIN WILL SWITCH TO ERTAPENEM FROM MEROPENEM Objective - Vital Signs/Intake and Output Vital Signs (last 24 hours): Temp Pulse Resp BP Pulse Ox 98.4 F 89 20 120/73 96 11/25/17 07:43 11/25/17 07:43 11/25/17 07:43 11/25/17 07:43 11/25/17 07:43 - Medications Medications: Current Medications Acetaminophen (Tylenol 325mg Tab) 650 mg PO Q6 PRN PRN Reason: Pain, Mild (1-3) Acetaminophen (Tylenol 325mg Tab) 975 mg PO Q8 [facility] Last Admin: 11/25/17 08:36 Dose: 975 mg Docusate Sodium (Colace) 100 mg PO BID [facility] Last Admin: 11/25/17 08:21 Dose: 100 mg Duloxetine HCl (Cymbalta) 60 mg PO DAILY [facility] Last Admin: 11/25/17 08:24 Dose: 60 mg Enoxaparin Sodium (Lovenox) 40 mg SC DAILY [facility] PRN Reason: Protocol Last Admin: 11/25/17 08:25 Dose: 40 mg Ferrous Sulfate (Feosol) 325 mg PO BID [facility] Last Admin: 11/25/17 08:24 Dose: 325 mg Folic Acid (Folic Acid) 1 mg PO DAILY [facility] Last Admin: 11/25/17 08:25 Dose: 1 mg Lactated Ringer's (Lactated Ringer's) 1,000 mls @ 100 mls/hr IV .Q10H [facility] Last Admin: 11/24/17 19:43 Dose: Not Given Vancomycin HCl 1 gm/ Sodium (Chloride) 250 mls @ 166.667 mls/hr IVPB Q12 [facility] PRN Reason: Protocol Last Admin: 11/25/17 08:39 Dose: 166.667 mls/hr Meropenem 1 gm/ Sodium (Chloride) 100 mls @ 100 mls/hr IVPB Q12 [facility] PRN Reason: Protocol Last Admin: 11/25/17 08:26 Dose: 100 mls/hr Morphine Sulfate (Morphine) 2 mg IVP Q4 PRN PRN Reason: pain 4-10 Last Admin: 11/23/17 15:20 Dose: 2 mg Ondansetron HCl (Zofran Inj) 4 mg IVP Q6 PRN PRN Reason: Nausea/Vomiting Oxycodone HCl (Oxycodone Immediate Release Tab) 10 mg PO Q6 PRN PRN Reason: Pain, moderate (4-7) Last Admin: 11/25/17 08:38 Dose: 10 mg - Labs Labs: 11/24/17 11:47 11/25/17 05:30 PT 13.7 Seconds (9.8-13.1) H 11/21/17 18:45 INR 1.2 (0.9-1.2) 11/21/17 18:45 APTT 29.7 Seconds (25.6-37.1) 11/21/17 18:45
[2017-11-25 16:18] VITALS: RESP 18
[2017-11-25] MEDS: Lactated Ringer's 1,000 ML IV SCH (20:45)
[2017-11-26 07:52] VITALS: BP 108/69; TEMP 98.3; O2SAT 94
--- NOTE | 2017-11-26 07:53 | CP.PCM.PN ---
Subjective - Date & Time of Evaluation Date of Evaluation: 11/26/17 Time of Evaluation: 07:53 - Subjective Subjective: Patient seen and examined at bedside comfortable. Pain well controlled. No new complaints. Objective - Vital Signs/Intake and Output Vital Signs (last 24 hours): Temp Pulse Resp BP Pulse Ox 98.3 F 90 18 108/69 94 L 11/26/17 07:52 11/26/17 07:52 11/26/17 07:52 11/26/17 07:52 11/26/17 07:52 Intake and Output: 11/26/17 11/26/17 06:59 18:59 Intake Total 150 Balance 150 - Medications Medications: Current Medications Acetaminophen (Tylenol 325mg Tab) 650 mg PO Q6 PRN PRN Reason: Pain, Mild (1-3) Acetaminophen (Tylenol 325mg Tab) 975 mg PO Q8 [facility] Last Admin: 11/26/17 01:03 Dose: 975 mg Docusate Sodium (Colace) 100 mg PO BID [facility] Last Admin: 11/25/17 17:30 Dose: 100 mg Duloxetine HCl (Cymbalta) 60 mg PO DAILY [facility] Last Admin: 11/25/17 08:24 Dose: 60 mg Enoxaparin Sodium (Lovenox) 40 mg SC DAILY [facility] PRN Reason: Protocol Last Admin: 11/25/17 08:25 Dose: 40 mg Ferrous Sulfate (Feosol) 325 mg PO BID [facility] Last Admin: 11/25/17 17:30 Dose: 325 mg Folic Acid (Folic Acid) 1 mg PO DAILY [facility] Last Admin: 11/25/17 08:25 Dose: 1 mg Lactated Ringer's (Lactated Ringer's) 1,000 mls @ 100 mls/hr IV .Q10H [facility] Last Admin: 11/25/17 20:45 Dose: 100 mls/hr Vancomycin HCl 1 gm/ Sodium (Chloride) 250 mls @ 166.667 mls/hr IVPB Q12 [facility] PRN Reason: Protocol Last Admin: 11/25/17 20:41 Dose: 166.667 mls/hr Ertapenem 1 gm/ Sodium (Chloride) 100 mls @ 100 mls/hr IVPB DAILY [facility] PRN Reason: Protocol Morphine Sulfate (Morphine) 2 mg IVP Q4 PRN PRN Reason: pain 4-10 Last Admin: 11/23/17 15:20 Dose: 2 mg Ondansetron HCl (Zofran Inj) 4 mg IVP Q6 PRN PRN Reason: Nausea/Vomiting Oxycodone HCl (Oxycodone Immediate Release Tab) 10 mg PO Q6 PRN PRN Reason: Pain, moderate (4-7) Last Admin: 11/25/17 17:28 Dose: 10 mg - Labs Labs: 11/24/17 11:47 11/25/17 05:30 PT 13.7 Seconds (9.8-13.1) H 11/21/17 18:45 INR 1.2 (0.9-1.2) 11/21/17 18:45 APTT 29.7 Seconds (25.6-37.1) 11/21/17 18:45 - Extremities Exam Additional comments: L knee: knee immobilizer intact, Prevena intact sensation intact SP/DP/TN motor intact EHL/FHL/TA/G pedal pulses intact comps soft/NT Assessment and Plan (1) Infected prosthetic knee joint Assessment & Plan: POD#4 s/p L revision TKA doing well -PT/OT FF 10% WB -Prevena dressing changed, maintain dressings untill office visit -no shower -maintain knee immobilizer (strict) -abx as per ID -orthopedically stable -f/u in office within 7-10 days -above d/w Dr. Trejo in agreement Status: Acute
[2017-11-26] MEDS: oxyCODONE 10 mg Immediate Release Tab PO PRN (09:01)
[2017-11-26] MEDS: Enoxaparin 40 mg Syringe SC SCH (09:04)
--- NOTE | 2017-11-26 09:09 | CP.PCM.PN ---
Subjective - Date & Time of Evaluation Date of Evaluation: 11/16/17 Time of Evaluation: 09:10 - Subjective Subjective: NO NEW COMPLAINTS Objective - Vital Signs/Intake and Output Vital Signs (last 24 hours): Temp Pulse Resp BP Pulse Ox 98.3 F 90 18 108/69 94 L 11/26/17 07:52 11/26/17 07:52 11/26/17 07:52 11/26/17 07:52 11/26/17 07:52 Intake and Output: 11/26/17 11/26/17 06:59 18:59 Intake Total 150 Balance 150 - Medications Medications: Current Medications Acetaminophen (Tylenol 325mg Tab) 650 mg PO Q6 PRN PRN Reason: Pain, Mild (1-3) Acetaminophen (Tylenol 325mg Tab) 975 mg PO Q8 [facility] Last Admin: 11/26/17 01:03 Dose: 975 mg Docusate Sodium (Colace) 100 mg PO BID [facility] Last Admin: 11/26/17 09:03 Dose: 100 mg Duloxetine HCl (Cymbalta) 60 mg PO DAILY [facility] Last Admin: 11/26/17 09:03 Dose: 60 mg Enoxaparin Sodium (Lovenox) 40 mg SC DAILY [facility] PRN Reason: Protocol Last Admin: 11/26/17 09:04 Dose: 40 mg Ferrous Sulfate (Feosol) 325 mg PO BID [facility] Last Admin: 11/26/17 09:03 Dose: 325 mg Folic Acid (Folic Acid) 1 mg PO DAILY [facility] Last Admin: 11/26/17 09:04 Dose: 1 mg Lactated Ringer's (Lactated Ringer's) 1,000 mls @ 100 mls/hr IV .Q10H [facility] Last Admin: 11/25/17 20:45 Dose: 100 mls/hr Vancomycin HCl 1 gm/ Sodium (Chloride) 250 mls @ 166.667 mls/hr IVPB Q12 [facility] PRN Reason: Protocol Last Admin: 11/25/17 20:41 Dose: 166.667 mls/hr Ertapenem 1 gm/ Sodium (Chloride) 100 mls @ 100 mls/hr IVPB DAILY [facility] PRN Reason: Protocol Last Admin: 11/26/17 09:04 Dose: 100 mls/hr Morphine Sulfate (Morphine) 2 mg IVP Q4 PRN PRN Reason: pain 4-10 Last Admin: 11/23/17 15:20 Dose: 2 mg Ondansetron HCl (Zofran Inj) 4 mg IVP Q6 PRN PRN Reason: Nausea/Vomiting Oxycodone HCl (Oxycodone Immediate Release Tab) 10 mg PO Q6 PRN PRN Reason: Pain, moderate (4-7) Last Admin: 11/26/17 09:01 Dose: 10 mg - Labs Labs: 11/24/17 11:47 11/25/17 05:30 PT 13.7 Seconds (9.8-13.1) H 11/21/17 18:45 INR 1.2 (0.9-1.2) 11/21/17 18:45 APTT 29.7 Seconds (25.6-37.1) 11/21/17 18:45 - Respiratory Exam Respiratory Exam: Clear to Ausculation Bilateral - Cardiovascular Exam Cardiovascular Exam: REGULAR RHYTHM, +S1, +S2 - Extremities Exam Additional comments: LLE IN IMMOBILIZER - Additional Findings Additional findings: ID NOTE REVIEWED Assessment and Plan - Assessment and Plan (Free Text) Assessment: S/P SURGERY FOR LEFT KNEE INFECTION Plan: CONTINUE ANTIBIOTICS AND LOVENOX
[2017-11-26 12:22] LABS: HEMOGLOBIN 10.4 g/dL (12.0-16.0); MEAN CELL VOLUME 79.2 fl (81.0-99.0); MEAN CORPUSCULAR HEMOGLOBIN 26.8 pg (27.0-31.0); MEAN CORPUSCULAR HGB CONC 33.8 g/dL (33.0-37.0); RBC 3.87 Mil/uL (3.80-5.20); RED CELL DISTRIBUTION WIDTH 15.1 % (11.5-14.5); WHITE BLOOD COUNT 6.3 K/uL (4.8-10.8)
[2017-11-26 12:36] LABS: BLOOD UREA NITROGEN 10 mg/dl (7-17); CALCIUM 8.6 mg/dL (8.4-10.2); GFR AFRICAN-AMERICAN > 60; GFR NON-AFRICAN AMERICAN > 60
--- NOTE | 2017-11-26 13:54 | CP.PCM.DIS ---
Provider - Provider Date of Admission: 11/21/17 18:15 Attending physician: Paulo Garcia DO Consults: Dr Maya Rodgers Time Spent in preparation of Discharge (in minutes): 25 Diagnosis - Discharge Diagnosis (1) Infected prosthetic knee joint Status: Acute Comment: continue IV antibiotics at home with Ertapenem and Vancomycin for a total of 6 weeks. continue home PT. continue Oxycodone for pain management (2) Depression Status: Chronic Comment: continue [facility] Course - Lab Results Lab Results: Micro Results 11/22/17 14:33 Body Fluid - Knee-Left Gram Stain - Final 11/22/17 14:33 Body Fluid - Knee-Left Anaerobic Culture - Final NO ANAEROBES ISOLATED. 11/22/17 14:33 Body Fluid - Knee-Left Body Fluid Culture - Final No growth. 11/22/17 15:35 Body Fluid - Knee-Left Gram Stain - Final 11/22/17 15:35 Body Fluid - Knee-Left Body Fluid Culture - Final No growth. 11/22/17 14:35 Body Fluid - Knee-Left Gram Stain - Final 11/22/17 14:35 Body Fluid - Knee-Left Body Fluid Culture - Final No growth. 11/22/17 14:50 Knee - Left Gram Stain - Final 11/22/17 14:50 Knee - Left Wound Culture - Final Enterococcus Faecalis 11/21/17 18:30 Blood-Venous Blood Culture - Preliminary NO GROWTH AFTER 4 DAYS 11/21/17 18:00 Blood-Venous Blood Culture - Preliminary NO GROWTH AFTER 4 DAYS 11/22/17 14:00 Knee - Left Gram Stain - Final 11/22/17 14:00 Knee - Left Wound Culture - Final No Growth 11/22/17 14:00 Knee - Left Gram Stain - Final 11/22/17 14:00 Knee - Left Wound Culture - Final No Growth 11/22/17 14:00 Knee - Left Gram Stain - Final 11/22/17 14:00 Knee - Left Wound Culture - Final No Growth 11/22/17 16:37 Knee - Left Gram Stain - Final 11/22/17 16:37 Knee - Left Wound Culture - Final No Growth 11/22/17 16:37 Knee - Left Gram Stain - Final 11/22/17 16:37 Knee - Left Wound Culture - Final No Growth 11/22/17 14:00 Knee - Left Gram Stain - Final 11/22/17 14:00 Knee - Left Wound Culture - Final No Growth 11/22/17 14:00 Knee - Left Gram Stain - Final 11/22/17 14:00 Knee - Left Wound Culture - Final No Growth 11/22/17 14:00 Knee - Left Gram Stain - Final 11/22/17 14:00 Knee - Left Wound Culture - Final No Growth 11/22/17 14:00 Knee - Left Gram Stain - Final 11/22/17 14:00 Knee - Left Wound Culture - Final No Growth 11/22/17 14:00 Knee - Left Gram Stain - Final 11/22/17 14:00 Knee - Left Wound Culture - Final No Growth 11/22/17 14:00 Knee - Left Gram Stain - Final 11/22/17 14:00 Knee - Left Wound Culture - Final No Growth 11/22/17 14:00 Knee - Left Gram Stain - Final 11/22/17 14:00 Knee - Left Wound Culture - Final No Growth 11/22/17 14:00 Knee - Left Gram Stain - Final 11/22/17 14:00 Knee - Left Wound Culture - Final No Growth 11/22/17 14:00 Knee - Left Gram Stain - Final 11/22/17 14:00 Knee - Left Wound Culture - Final No Growth 11/22/17 14:00 Knee - Left Gram Stain - Final 11/22/17 14:00 Knee - Left Wound Culture - Final No Growth 11/22/17 14:00 Knee - Left Gram Stain - Final 11/22/17 14:00 Knee - Left Wound Culture - Final No Growth 11/22/17 14:50 Knee - Left Gram Stain - Final 11/22/17 14:50 Knee - Left Wound Culture - Final No Growth 11/22/17 14:50 Knee - Left Gram Stain - Final 11/22/17 14:50 Knee - Left Wound Culture - Final No Growth 11/22/17 14:50 Knee - Left Gram Stain - Final 11/22/17 14:50 Knee - Left Wound Culture - Final No Growth 11/22/17 16:37 Knee - Left Gram Stain - Final 11/22/17 16:37 Knee - Left Wound Culture - Final No Growth 11/22/17 16:37 Knee - Left Gram Stain - Final 11/22/17 16:37 Knee - Left Anaerobic Culture - Final NO ANAEROBES ISOLATED. 11/22/17 16:37 Knee - Left Wound Culture - Final No Growth 11/22/17 14:00 Knee - Left Gram Stain - Final 11/22/17 14:00 Knee - Left Wound Culture - Final No Growth 11/21/17 17:00 Knee - Left Gram Stain - Final TEST NOT PERFORMED 11/21/17 17:00 Knee - Left Wound Culture - Final No Growth 11/22/17 14:35 Other: Please Indicate Fungal Culture - Preliminary 11/22/17 14:35 Other: Please Indicate Mycobacterial Culture - Preliminary 11/22/17 14:33 Other: Please Indicate Fungal Culture - Preliminary 11/22/17 14:33 Other: Please Indicate Mycobacterial Culture - Preliminary 11/22/17 16:21 Body Fluid - Knee-Left Anaerobic Culture - Final NO ANAEROBES ISOLATED. 11/22/17 15:35 Knee - Left Anaerobic Culture - Final NO ANAEROBES ISOLATED. 11/22/17 15:35 Other: Please Indicate Mycobacterial Culture - Preliminary Most Recent Lab Values WBC 6.3 K/uL (4.8-10.8) 11/26/17 12:18 RBC 3.87 Mil/uL (3.80-5.20) 11/26/17 12:18 Hgb 10.4 g/dL (12.0-16.0) L 11/26/17 12:18 Hct 30.6 % (34.0-47.0) L 11/26/17 12:18 MCV 79.2 fl (81.0-99.0) L 11/26/17 12:18 MCH 26.8 pg (27.0-31.0) L 11/26/17 12:18 MCHC 33.8 g/dL (33.0-37.0) 11/26/17 12:18 RDW 15.1 % (11.5-14.5) H 11/26/17 12:18 Plt Count 285 K/uL (130-400) 11/26/17 12:18 MPV 8.1 fl (7.2-11.7) 11/21/17 17:51 Neut % (Auto) 70.3 % (50.0-75.0) 11/21/17 17:51 Lymph % (Auto) 18.4 % (20.0-40.0) L 11/21/17 17:51 [place] % (Auto) 9.0 % (0.0-10.0) 11/21/17 17:51 Eos % (Auto) 1.8 % (0.0-4.0) 11/21/17 17:51 Baso % (Auto) 0.5 % (0.0-2.0) 11/21/17 17:51 Neut # (Auto) 5.8 K/uL (1.8-7.0) 11/21/17 17:51 Lymph # (Auto) 1.5 K/uL (1.0-4.3) 11/21/17 17:51 [place] # (Auto) 0.7 K/uL (0.0-0.8) 11/21/17 17:51 Eos # (Auto) 0.1 K/uL (0.0-0.7) 11/21/17 17:51 Baso # (Auto) 0.0 K/uL (0.0-0.2) 11/21/17 17:51 ESR 89 mm/hr (0-30) H 11/25/17 05:30 PT 13.7 Seconds (9.8-13.1) H 11/21/17 18:45 INR 1.2 (0.9-1.2) 11/21/17 18:45 APTT 29.7 Seconds (25.6-37.1) 11/21/17 18:45 pO2 20 mm/Hg (30-55) L 11/21/17 18:36 VBG pH 7.36 (7.32-7.43) 11/21/17 18:36 VBG pCO2 48 mmHg (40-60) 18 18:36 VBG HCO3 23.9 mmol/L 11/21/17 18:36 VBG Total CO2 28.6 mmol/L (22-28) H 11/21/17 18:36 VBG O2 Sat (Calc) 31.0 % (40-65) L 18 18:36 VBG Base Excess 1.0 mmol/L (0.0-2.0) 18 18:36 VBG Potassium 3.4 mmol/L (3.6-5.2) L 11/21/17 18:36 Sodium 140.0 mmol/L (132-148) 11/21/17 18:36 Chloride 105.0 mmol/L (98-107) 11/21/17 18:36 Glucose 102 mg/dL (65-105) 11/21/17 18:36 Lactate 0.9 mmol/L (0.7-2.1) 11/21/17 18:36 FiO2 21.0 % 11/21/17 18:36 Sodium 140 mmol/l (132-148) 11/26/17 12:18 Potassium 3.8 MMOL/L (3.6-5.0) 11/26/17 12:18 Chloride 105 mmol/L (98-107) 11/26/17 12:18 Carbon Dioxide 30 mmol/L (22-30) 11/26/17 12:18 Anion Gap 9 (10-20) L 11/26/17 12:18 BUN 10 mg/dl (7-17) 11/26/17 12:18 Creatinine 0.5 mg/dl (0.7-1.2) L 11/26/17 12:18 Est GFR ( Amer) > 60 11/26/17 12:18 Est GFR (Non-Af Amer) > 60 11/26/17 12:18 Random Glucose 118 mg/dL (65-105) H 11/26/17 12:18 Calcium 8.6 mg/dL (8.4-10.2) 11/26/17 12:18 Total Bilirubin 0.6 mg/dl (0.2-1.3) 11/25/17 05:30 AST 19 U/L (14-36) 11/25/17 05:30 ALT 19 U/L (9-52) 11/25/17 05:30 Alkaline Phosphatase 106 U/L (38-126) 11/25/17 05:30 C-Reactive Protein 164.80 mg/L (0.0-9.9) H 11/21/17 18:45 Total Protein 6.4 G/DL (6.3-8.2) 11/25/17 05:30 Albumin 3.0 g/dL (3.5-5.0) L 11/25/17 05:30 Globulin 3.4 gm/dL (2.2-3.9) 11/25/17 05:30 Albumin/Globulin Ratio 0.9 (1.0-2.1) L 11/25/17 05:30 Procalcitonin 0.07 NG/ML (0.19-0.49) L 11/23/17 06:20 Venous Blood Potassium 3.4 mmol/L (3.6-5.2) L 11/21/17 18:36 Fluid Type Synovial fluid 11/22/17 15:35 Synovial WBC 4801.0 /mm3 (0.0-150.0) H 11/22/17 15:35 Synovial RBC 30104.0 /mm3 (0.0-0.0) H 11/22/17 15:35 Synovial Neutrophils 36.0 % (0-0) H 11/22/17 15:35 Synovial Lymphocytes 59.0 % (0-0) H 11/22/17 15:35 Synov Monos/Macrophage 5 % (0-0) H 11/22/17 15:35 Synovial Fluid Comment Cloudy 11/22/17 15:35 Vancomycin Trough 7.7 ug/mL (5.0-10.0) 11/26/17 11:06 Blood Type B POSITIVE 11/21/17 18:45 Antibody Screen Negative 11/21/17 18:45 Crossmatch See Detail 11/21/17 18:45 BBK History Checked Patient has bt 11/21/17 18:45 - Hospital Course Hospital Course: 62 yo female with history of depression and previous left TKR (09/24/17) and bilateral THR came back with pain, swelling and redness of the left knee accompanied with serous discharge from the surgical site. I&D and revision of the left TKR was done on 11/22/17 and patient put on IV antibiotics which consist of Vancomycin and Meropenem which was later switched to Ertapenem. Condition improved and patient was discharged with a plan to continue IV antibiotics for a total of 6 weeks. Discharge Exam - Head Exam Head Exam: ATRAUMATIC, NORMAL INSPECTION, NORMOCEPHALIC - Eye Exam Eye Exam: absent: Scleral icterus - ENT Exam ENT Exam: Mucous Membranes Moist - Respiratory Exam Respiratory Exam: absent: Rales, Rhonchi, Wheezes, Respiratory Distress - Cardiovascular Exam Cardiovascular Exam: REGULAR RHYTHM, +S1, +S2 - GI/Abdominal Exam GI & Abdominal Exam: Soft. absent: Tenderness - Rectal Exam Rectal Exam: Deferred - Back Exam Back exam: absent: FULL ROM (left knee on immobilizer) - Neurological Exam Neurological exam: Alert, Oriented x3 - Psychiatric Exam Psychiatric exam: Normal Affect - Skin Skin Exam: Dry, Intact Discharge Plan - Discharge Medications Prescriptions: Ertapenem [Invanz] 1 gm IJ DAILY #38 pds oxyCODONE [oxyCODONE Immediate Release Tab] 10 mg PO Q6 PRN #20 tab PRN Reason: Pain, Moderate (4-7) Vancomycin [Vancomycin Inj] 1 gm IV Q12 #76 vial - Follow Up Plan Condition: FAIR Disposition: HOME/ ROUTINE Instructions: Wound Incision and Drainage (DC), Wound Infection, Negative Pressure Wound Therapy Additional Instructions: follow up with primary MD and Dr. Trejo 1 week HomeCare Services: [phone] Visiting Nurse Services: [facility] Visiting Nurse [phone] Referrals: Tal Trejo III, MD [Staff Provider] - Jesus Gamboa DO [Family Provider] -
[2017-11-26 15:02] VITALS: PULSE 96
== END 2017-11-26 15:30 | disposition home health service (06) | DRG 465 ==
LOC: H.ER 16:39 → H.ERHOLD 18:15 → H.MEDSURG1 21:32
PROVIDERS: ADMIT Internal Medicine; ATTEND Internal Medicine
PROC: 0SRD0JZ Replacement of Left Knee Joint with Synthetic Substitute, Open Approach (ICD-10-PCS; 2017-11-22)
PROC: 0SBD0ZZ Excision of Left Knee Joint, Open Approach (ICD-10-PCS; 2017-11-22)
PROC: 0S9D0ZZ Drainage of Left Knee Joint, Open Approach (ICD-10-PCS; 2017-11-22)
PROC: 0SHD08Z Insertion of Spacer into Left Knee Joint, Open Approach (ICD-10-PCS; 2017-11-22)
PROC: 02HV33Z Insertion of Infusion Device into Superior Vena Cava, Percutaneous Approach (ICD-10-PCS; 2017-11-22)
PROC: B518ZZA Fluoroscopy of Superior Vena Cava, Guidance (ICD-10-PCS; 2017-11-22)
PROC: B548ZZA Ultrasonography of Superior Vena Cava, Guidance (ICD-10-PCS; 2017-11-22)
PROC: 3E0T3BZ Introduction of Anesthetic Agent into Peripheral Nerves and Plexi, Percutaneous Approach (ICD-10-PCS; 2017-11-22)
PROC: 30233N1 Transfusion of Nonautologous Red Blood Cells into Peripheral Vein, Percutaneous Approach (ICD-10-PCS; 2017-11-22)
PROC: 0SPD0JZ Removal of Synthetic Substitute from Left Knee Joint, Open Approach (ICD-10-PCS; principal; 2017-11-22 12:45)
PROC: 0JBP0ZZ Excision of Left Lower Leg Subcutaneous Tissue and Fascia, Open Approach (ICD-10-PCS; 2017-11-22 12:45)
DX: T84.54XA Infection and inflammatory reaction due to internal left knee prosthesis, initial encounter (principal); Y83.1 Surgical operation with implant of artificial internal device as the cause of abnormal reaction of the patient, or of later complication, without mention of misadventure at the time of the procedure; Z82.5 Family history of asthma and other chronic lower respiratory diseases; Z87.891 Personal history of nicotine dependence; Z96.643 Presence of artificial hip joint, bilateral; M65.9 Synovitis and tenosynovitis, unspecified; F41.9 Anxiety disorder, unspecified; Z79.899 Other long term (current) drug therapy; R00.0 Tachycardia, unspecified; R50.9 Fever, unspecified; D64.9 Anemia, unspecified; E87.6 Hypokalemia; F32.9 Major depressive disorder, single episode, unspecified; M19.041 Primary osteoarthritis, right hand; M19.042 Primary osteoarthritis, left hand; M17.0 Bilateral primary osteoarthritis of knee

== ENCOUNTER 2018-01-14 06:16 | Inpatient (IN) | payer OTHER ==
[2018-01-11 11:01] VITALS: BMI 28.3
--- NOTE | 2018-01-14 06:47 | CP.PCM.HP ---
History of Present Illness - History of Present Illness History of Present Illness: cc: knee pain after falling HPI: 62 year old female PMH depression, s/p L TKR 09/2017, revision L TKR 11/2017 , returns after sustaining a fall getting out of the shower. Patient states pain is moderate, constant, L knee, not associated with any other symptoms. Patient has not had problems with anesthesia. For OR this morning with Dr. Trejo for L TKR revision. METs >4, medically stable for surgery, low risk for mod risk procedure. HD stable NAD. ROS: per HPI all other systems reviewed and negative Present on Admission - Present on Admission Any Indicators Present on Admission: No Past Patient History - Infectious Disease Hx of Infectious Diseases: None - Past Medical History & Family History Past Medical History?: Yes - Past Social History Smoking Status: Former Smoker - CARDIAC Hx Cardiac Disorders: No - PULMONARY Hx Respiratory Disorders: No - NEUROLOGICAL Hx Neurological Disorder: No - HEENT Hx HEENT Problems: No - RENAL Hx Chronic Kidney Disease: No - ENDOCRINE/METABOLIC Hx Endocrine Disorders: No - HEMATOLOGICAL/ONCOLOGICAL Hx Blood Disorders: No - INTEGUMENTARY Hx Dermatological Problems: No - MUSCULOSKELETAL/RHEUMATOLOGICAL Hx Musculoskeletal Disorders: Yes Hx Arthritis: Yes (hands,knees,back) Hx Falls: No - GASTROINTESTINAL Hx Gastrointestinal Disorders: No - GENITOURINARY/GYNECOLOGICAL Hx Genitourinary Disorders: No - PSYCHIATRIC Hx Psychophysiologic Disorder: Yes Hx Anxiety: Yes Hx Depression: Yes Hx Substance Use: No - SURGICAL HISTORY Hx Surgeries: Yes Hx Section: Yes (x2) Hx Orthopedic Surgery: Yes (anant hip-2012) Other/Comment: spinal surgery with disc fusion 30 years ago. left knee surgeery ( 09/24/17) - ANESTHESIA Hx Anesthesia: Yes Hx Anesthesia Reactions: No Hx Malignant Hyperthermia: No Meds Allergies/Adverse Reactions: Allergies Allergy/AdvReac Type Severity Reaction Status Date / Time No Known Allergies Allergy Verified 11/21/17 16:57 Physical Exam - Constitutional Additional comments: Vitals Reviewed GEN: WDWN, alert, cooperative HEENT: NCAT, PERRL, EOMI HEART: RRR, +S1S2, NO MRG LUNG: CTAB, NO WRR ABD: soft, NT, ND, No HSM, No masses EXT: normal pedal pulses, normal capillary refill NEURO: awake, alert, no focal deficits SKIN: warm, dry PSYCH: normal mood, normal affect Assessment & Plan - Assessment and Plan (Free Text) Plan: 62 year old female PMH depression, s/p L TKR 09/2017, revision L TKR 11/2017, returns after sustaining a fall getting out of the shower. Patient states pain is moderate, constant, L knee, not associated with any other symptoms. Patient has not had problems with anesthesia. For OR this morning with Dr. Trejo for L TKR revision. METs >4, medically stable for surgery, low risk for mod risk procedure. HD stable NAD. L total knee revision s/p fall Orthopedic surgery consult: Dr. Trejo pain control for OR today for L TKR Ancef PT/OT incentive spirometry after surgery anticoagulation per ortho Depression continue Cymbalta
[2018-01-14 07:42] LABS: BLOOD UREA NITROGEN 15 mg/dl (7-17); CALCIUM 9.7 mg/dL (8.4-10.2); GFR AFRICAN-AMERICAN > 60; GFR NON-AFRICAN AMERICAN > 60
[2018-01-14 07:43] LABS: HEMOGLOBIN 11.1 g/dL (12.0-16.0); MEAN CELL VOLUME 78.6 fl (81.0-99.0); MEAN CORPUSCULAR HEMOGLOBIN 25.5 pg (27.0-31.0); MEAN CORPUSCULAR HGB CONC 32.4 g/dL (33.0-37.0); RBC 4.37 Mil/uL (3.80-5.20); RED CELL DISTRIBUTION WIDTH 16.8 % (11.5-14.5); WHITE BLOOD COUNT 5.5 K/uL (4.8-10.8)
--- NOTE | 2018-01-14 07:44 | CP.PCM.CON ---
History of Present Illness - History of Present Illness History of Present Illness: ORthopedic consultation Dr. Trejo 62F s/p left TKR 09/24/2017 and s/p I&D/poly exchange 11/22/2017, complains of left knee pain after fall getting out of shower 01/03/2018, says her knee "bent all the way back" and was unable to extend her knee and walk after the fall. She was seen in office by Dr. Trejo and found to have left quadriceps tendon rupture, admitted today for quad tendon repair/poly exchange. Review of Systems - Review of Systems All systems: reviewed and no additional remarkable complaints except - Musculoskeletal Musculoskeletal: As Per HPI Past Patient History - Infectious Disease Hx of Infectious Diseases: None - Past Medical History & Family History Past Medical History?: Yes - Past Social History Smoking Status: Former Smoker - CARDIAC Hx Cardiac Disorders: No - PULMONARY Hx Respiratory Disorders: No - NEUROLOGICAL Hx Neurological Disorder: No - HEENT Hx HEENT Problems: No - RENAL Hx Chronic Kidney Disease: No - ENDOCRINE/METABOLIC Hx Endocrine Disorders: No - HEMATOLOGICAL/ONCOLOGICAL Hx Blood Disorders: No - INTEGUMENTARY Hx Dermatological Problems: No - MUSCULOSKELETAL/RHEUMATOLOGICAL Hx Musculoskeletal Disorders: Yes Hx Arthritis: Yes (hands,knees,back) Hx Falls: Yes - GASTROINTESTINAL Hx Gastrointestinal Disorders: No - GENITOURINARY/GYNECOLOGICAL Hx Genitourinary Disorders: No - PSYCHIATRIC Hx Psychophysiologic Disorder: Yes Hx Anxiety: Yes Hx Depression: Yes Hx Substance Use: No - SURGICAL HISTORY Hx Surgeries: Yes Hx Section: Yes (x2) Hx Joint Replacement: Yes (L knee) Hx Orthopedic Surgery: Yes (anant hip-2012) Other/Comment: spinal surgery with disc fusion 30 years ago. left knee surgeery ( 09/24/17) - ANESTHESIA Hx Anesthesia: Yes Hx Anesthesia Reactions: No Hx Malignant Hyperthermia: No Has any member of the family had a problem w/ anesthesia?: No Meds Allergies/Adverse Reactions: Allergies Allergy/AdvReac Type Severity Reaction Status Date / Time No Known Allergies Allergy Verified 01/14/18 07:41 - Medications Medications: Current Medications Ertapenem 1 gm/ Sodium (Chloride) 100 mls @ 100 mls/hr IVPB DAILY [facility] PRN Reason: Protocol Vancomycin HCl 1,000 mg/ (Sodium Chloride) 250 mls @ 250 mls/hr IVPB Q12H [facility] PRN Reason: Protocol Physical Exam - Constitutional Appears: Well, No Acute Distress - Head Exam Head Exam: ATRAUMATIC, NORMAL INSPECTION - Extremities Exam Additional comments: +ROM ankle/toes, no active extension of knee, +effusion - Expanded Lower Extremities Exam Left Knee exam: swelling (unable to extend knee actively. Incision well healed, no drainage, calves soft NT neghomans, senstion intact +DP/PT pulses) - Neurological Exam Neurological exam: Alert, Oriented x3 - Psychiatric Exam Psychiatric exam: Normal Affect, Normal Mood - Skin Skin Exam: Dry, Intact, Normal Color, Warm Results - Vital Signs Recent Vital Signs: Last Vital Signs Temp 98.4 F 01/14/18 07:00 Pulse 87 01/14/18 07:00 Resp 20 01/14/18 07:00 BP 104/57 L 01/14/18 07:00 Pulse Ox 95 01/14/18 07:00 - Labs Result Diagrams: 01/14/18 07:20 01/14/18 07:20 Labs: Laboratory Results - last 24 hr 01/14/18 01/14/18 07:20 07:20 Sodium 142 Potassium 4.1 Chloride 107 Carbon Dioxide 27 Anion Gap 12 BUN 15 Creatinine 0.6 L Est GFR ( Amer) > 60 Est GFR (Non-Af Amer) > 60 Random Glucose 107 H Calcium 9.7 BBK History Checked Patient has bt Assessment & Plan (1) Quadriceps tendon rupture Assessment and Plan: for OR for quad tendon repair/poly exchange f/u labs t&C for OR H&P noted Status: Acute
[2018-01-14] MEDS ORDERED: Lactated Ringer's 1,000 ML IV ONE ×2 (08:00→18:00)
[2018-01-14 08:03] LABS: INR 1.2; PROTHROMBIN TIME 13.2 Seconds (9.8-13.1)
[2018-01-14 08:06] LABS: PARTIAL THROMBOPLASTIN TIME 31.3 Seconds (25.6-37.1)
[2018-01-14 08:53] LABS: RENAL EPITHELIAL < 1 /hpf (0-3); SQUAMOUS EPITHIAL 9 /hpf (0-5); URINE BILIRUBIN NEGATIVE (NEGATIVE); URINE BLOOD MODERATE (NEGATIVE); URINE CLARITY CLOUDY (Clear); URINE COLOR YELLOW (YELLOW); URINE GLUCOSE (UA) NEG (Normal); URINE LEUKOCYTE ESTERASE LARGE Leu/uL (Negative); URINE PROTEIN 100 mg/dL (NEGATIVE); URINE UROBILINOGEN 0.2-1.0 mg/dL (0.2-1.0)
[2018-01-14] MEDS ORDERED: GELATIN SPONGE,ABSORB/PORCINE 1 EACH SPONGE TP ONE (09:26)
[2018-01-14] MEDS ORDERED: Thrombin Topical 5,000 Int Units Spray Kit ONE (09:26)
[2018-01-14] MEDS ORDERED: Bacitracin Ointment 30 GM TUBE ONE (09:26)
--- NOTE | 2018-01-14 11:57 | CP.PCM.CON ---
History of Present Illness - History of Present Illness History of Present Illness: THE PATIENT IS A 62 YEAR OLD FEMALE KNOWN TO ME FROM [facility] ADMISSIONS. SHE HAS A HISTORY OF A LEFT KNEE REPLACEMENT IN SEPTEMBER OF 2017 AND HAD AN INFECTION THAT WAS CLEANED OUT IN NOVEMBER 2017 FLOOWED BY IV ANTIBIOTICS AT HOME. SHE WAS DOING WELL BUT FELL IN THE SHOWER 2 WEEKS AGO AND SUSTAINED LEFT QUADRICEPS TENDON DAMAGE AND WILL HAVE A REPAIR TODAY. I WAS ASKED TO SEE HER ON THIS ADMISSION BY DR DOOLEY. SHE HAS ANXIETY AND DEPRESSION. SHE DENIES ANY OTHER MAJOR MEDICAL PROBLEMS SUCH CAD, CHEST PAIN, HYPERTENSION OR COPD. Past Patient History - Infectious Disease Hx of Infectious Diseases: None - Past Medical History & Family History Past Medical History?: Yes - Past Social History Smoking Status: Former Smoker - CARDIAC Hx Cardiac Disorders: No - PULMONARY Hx Respiratory Disorders: No - NEUROLOGICAL Hx Neurological Disorder: No - HEENT Hx HEENT Problems: No - RENAL Hx Chronic Kidney Disease: No - ENDOCRINE/METABOLIC Hx Endocrine Disorders: No - HEMATOLOGICAL/ONCOLOGICAL Hx Blood Disorders: No - INTEGUMENTARY Hx Dermatological Problems: No - MUSCULOSKELETAL/RHEUMATOLOGICAL Hx Musculoskeletal Disorders: Yes Hx Arthritis: Yes (hands,knees,back) Hx Falls: Yes - GASTROINTESTINAL Hx Gastrointestinal Disorders: No - GENITOURINARY/GYNECOLOGICAL Hx Genitourinary Disorders: No - PSYCHIATRIC Hx Psychophysiologic Disorder: Yes Hx Anxiety: Yes Hx Depression: Yes Hx Substance Use: No - SURGICAL HISTORY Hx Surgeries: Yes Hx Section: Yes (x2) Hx Joint Replacement: Yes (L knee) Hx Orthopedic Surgery: Yes (anant hip-2012) Other/Comment: spinal surgery with disc fusion 30 years ago. left knee surgeery ( 09/24/17) - ANESTHESIA Hx Anesthesia: Yes Hx Anesthesia Reactions: No Hx Malignant Hyperthermia: No Has any member of the family had a problem w/ anesthesia?: No Meds Allergies/Adverse Reactions: Allergies Allergy/AdvReac Type Severity Reaction Status Date / Time No Known Allergies Allergy Verified 01/14/18 07:41 Physical Exam - Respiratory Exam Respiratory Exam: Clear to Auscultation Bilateral - Cardiovascular Exam Cardiovascular Exam: REGULAR RHYTHM, +S1, +S2 - Extremities Exam Additional comments: LEFT KNEE AREA IS SWOLLEN AND WARM Results - Vital Signs Recent Vital Signs: Last Vital Signs Temp 98.4 F 01/14/18 07:00 Pulse 87 01/14/18 09:54 Resp 20 01/14/18 07:00 BP 104/57 L 01/14/18 07:00 Pulse Ox 95 01/14/18 07:00 - Labs Result Diagrams: 01/14/18 07:20 01/14/18 07:20 Labs: Laboratory Results - last 24 hr 01/14/18 01/14/18 01/14/18 07:20 07:20 07:20 WBC 5.5 RBC 4.37 Hgb 11.1 L Hct 34.4 MCV 78.6 L MCH 25.5 L MCHC 32.4 L RDW 16.8 H Plt Count 252 PT 13.2 H INR 1.2 APTT 31.3 Sodium 142 Potassium 4.1 Chloride 107 Carbon Dioxide 27 Anion Gap 12 BUN 15 Creatinine 0.6 L Est GFR ( Amer) > 60 Est GFR (Non-Af Amer) > 60 Random Glucose 107 H Calcium 9.7 Urine Color Urine Clarity Urine pH Ur Specific [place] Urine Protein Urine Glucose (UA) Urine Ketones Urine Blood Urine Nitrate Urine Bilirubin Urine Urobilinogen Ur Leukocyte Esterase Urine RBC (Auto) Urine Microscopic WBC Ur Squamous Epith Cells Ur Renal Epithelial Cell Blood Type Antibody Screen Crossmatch BBK History Checked 01/14/18 01/14/18 07:20 07:20 WBC RBC Hgb Hct MCV MCH MCHC RDW Plt Count PT INR APTT Sodium Potassium Chloride Carbon Dioxide Anion Gap BUN Creatinine Est GFR ( Amer) Est GFR (Non-Af Amer) Random Glucose Calcium Urine Color Yellow Urine Clarity Cloudy Urine pH 6.0 Ur Specific [place] 1.012 Urine Protein 100 Urine Glucose (UA) Neg Urine Ketones Negative Urine Blood Moderate Urine Nitrate Negative Urine Bilirubin Negative Urine Urobilinogen 0.2-1.0 Ur Leukocyte Esterase Large Urine RBC (Auto) 45 H Urine Microscopic WBC 69 H Ur Squamous Epith Cells 9 H Ur Renal Epithelial Cell < 1 Blood Type B POSITIVE Antibody Screen Negative Crossmatch See Detail BBK History Checked Patient has bt Assessment & Plan - Assessment and Plan (Free Text) Assessment: FALL WITH LEFT QUADRICEPS TENDON INJURY PRIOR LEFT TKR Plan: THE PATIENT IS CLEARED FOR SURGERY
[2018-01-14] MEDS ORDERED: Ropivacaine 0.5% 30ML IV ONE (12:36)
[2018-01-14] MEDS ORDERED: Dexamethasone 4 mg/1 ml ONE ×2 (12:36→14:11)
[2018-01-14] MEDS ORDERED: Midazolam 2 MG/2 ML VIAL ONE (12:37)
[2018-01-14] MEDS ORDERED: Rocuronium 10 mg/ml (5 ml) ONE (12:38)
[2018-01-14] MEDS ORDERED: Propofol 10 mg/ml Inj (20 ML) ONE (12:38)
[2018-01-14] MEDS ORDERED: Succinylcholine 200 mg/10 ml Inj IV ONE (12:38)
[2018-01-14] MEDS ORDERED: Lidocaine 2% MPF (5 ml) Inj ONE (12:39)
[2018-01-14] MEDS ORDERED: ceFAZolin IV 1 gm in Dextrose 2 GM/100 ML BAG IVPB ONE (14:13)
[2018-01-14 15:12] LABS: FLUID TYPE SYNOVIAL FLUID
[2018-01-14] MEDS ORDERED: Bacitracin OINT 15GM TOP ONE (16:05)
--- NOTE | 2018-01-14 16:43 | PCM.SURG1 ---
Surgeon's Initial Post Op Note - Surgeon's Notes Surgeon: Maya [employer] Teacher: ELIO Moss/Timmy, DPM 1 Type of Anesthesia: General Endo, Block Regional Anesthesia Administered By: DR Breaux/DR Bryant Pre-Operative Diagnosis: Quadriceps tendon rupture Left knee- periprosthetic. excision skin/subcutaneous tissue and muscle. excisison heterotopic ossification. applx knee immobilizer. contusion /r/o stress fx cuneiform Operative Findings: quad tendon rupture. heterotopic ossification. contusion vs stress fx cuneiform Post-Operative Diagnosis: as above Operation Performed: pRIMARY REPAIR QUAD TENDON. EXCISON HETEROTOPIC OSSIFICATION. excision skin/subcutaeous tissue and muscle. closed reduction cuneiform and applx short leg boot Specimen/Specimens Removed: quad tendon. heterotopic ossification Estimated Blood Loss: EBL {In ML}: 5 Blood Products Given: N/A Drains Used: No Drains Post-Op Condition: Good Date of Surgery/Procedure: 01/14/18 Time of Surgery/Procedure: 14:50 (5time in room /aneatsheisa indcution time- 13: 42)
[2018-01-14] MEDS ORDERED: Dexamethasone 4 mg/1 ml IVP PRN (16:48)
[2018-01-14] MEDS ORDERED: DiphenhydrAMINE 50 mg/ml Inj IVP PRN (16:48)
[2018-01-14] MEDS ORDERED: HYDROmorphone 0.5 mg/0.5 ml ISec IVP PRN (16:48)
[2018-01-14 16:49] LABS: SF GROSS APPEARANCE BLOODY (CLEAR); SYNOVIAL FLUID COMMENT CLOUDY
[2018-01-14] MEDS ORDERED: Lactated Ringer's 1,000 ML IV SCH (17:00)
[2018-01-14 17:05] LABS: SYNOVIAL FLUID MONO/MACROPHAGE 26 % (0-0)
--- NOTE | 2018-01-14 17:06 | PCM.ANESB3 ---
Femoral Nerve Block - Femoral Nerve Block Date of Procedure: 01/14/18 Procedure Performed: Femoral Nerve Block Left - Procedure Femoral Nerve Block: The procedure was explained to the patient that it is for the post-operative pain management. Consent was obtained after a thorough discussion with the patient regarding the benefits and possible complications of local anesthetic block of the femoral nerve at the inguinal crease area. The patient was brought to the operating room and standard monitors were applied. Time-out was held with the circulating nurse to confirm the correct surgery and the appropriate block. After applying oxygen by nasal cannula and administering IV Sedation, patient was placed in supine position with fully extended lower extremities and the left groin exposed. The femoral artery was then carefully palpated. The ultrasound transducer was then applied to this area in the transverse plane and the femoral nerve was visualized lateral to the femoral artery and underneath the fascia iliaca. After thorough identification, the inguinal crease area was prepped with Chlorhexidine and 1 % Lidocaine was injected subcutaneously for topical anesthesia. At this point, a #22 gauge Stimuplex 2-inch needle was inserted immediately lateral to the femoral artery pulse at the inguinal crease and advanced perpendicularly. The needle was inserted to the ultrasound transducer in-plane towards the femoral nerve in a [id number] direction. Needle advancement was performed carefully under direct ultrasound visualization. Nerve stimulator was used and twitch of the quadriceps muscle was obtained at current of 1.0MA. After negative aspiration, 30cc of 0.5% ropivacaine was injected. Under ultrasound guidance the local anesthetics were observed spreading below fascia iliaca and around the femoral nerve. The needle was removed intact and sterile dressing was applied. The patient had stable vital signs, was conscious and in no apparent distress. The patient tolerated the femoral nerve block well with stable vital signs and was prepared for subsequent surgery.
[2018-01-14] MEDS ORDERED: Oxycodone/Acetaminophen 5/325 mg Tab PO PRN (18:03)
[2018-01-14] MEDS ORDERED: HYDROmorphone 1 mg/ml ISec IVP PRN (18:04)
--- NOTE | 2018-01-14 18:13 | RAD ---
Date of service: 01/14/2018 PROCEDURE: Left Knee Radiographs. HISTORY: Status post repair of quadriceps tendon rupture COMPARISON: 11/22/2017 FINDINGS: BONES: Status post left knee arthroplasty. Postsurgical changes are also noted. JOINTS: Total hip replacement hardware is noted. There is a small amount of air noted in the suprapatellar bursal likely postsurgical changes. JOINT EFFUSION: No significant joint effusion OTHER FINDINGS: None. IMPRESSION: Postsurgical changes as described above.
--- NOTE | 2018-01-14 19:54 | CP.PCM.PN ---
Subjective - Date & Time of Evaluation Date of Evaluation: 01/14/18 Time of Evaluation: 19:45 - Subjective Subjective: I D NOTE PATIENT JUST OUT OF O.R. AWAIT CULTURES CONTINUE VANCOMYCIN/ERTAPENEM Objective - Vital Signs/Intake and Output Vital Signs (last 24 hours): Temp Pulse Resp BP Pulse Ox 98 F 92 H 20 109/61 94 L 01/14/18 18:33 01/14/18 18:33 01/14/18 18:33 01/14/18 18:33 01/14/18 18:33 Intake and Output: 01/14/18 01/15/18 18:59 06:59 Intake Total 1200 Output Total 200 Balance 1000 - Medications Medications: Current Medications Duloxetine HCl (Cymbalta) 60 mg PO DAILY [facility] Enoxaparin Sodium (Lovenox) 40 mg SC Q24H [facility] PRN Reason: Protocol Ertapenem (Invanz) 1 gm IVPB DAILY [facility] PRN Reason: Protocol Hydromorphone HCl (Dilaudid) 0.5 mg IVP Q4 PRN PRN Reason: Pain, severe (8-10) Lactated Ringer's (Lactated Ringer's) 1,000 mls @ 125 mls/hr IV .Q8H [facility] Meperidine HCl (Demerol) 12.5 mg IVP Q5M PRN PRN Reason: Shivering/Rigor Oxycodone HCl (Oxycodone Immediate Release Tab) 10 mg PO Q6 PRN PRN Reason: Pain, moderate (4-7) Vancomycin HCl (Vancomycin Inj) 1 gm IVPB Q12 [facility] PRN Reason: Protocol - Labs Labs: 01/14/18 07:20 01/14/18 07:20 PT 13.2 Seconds (9.8-13.1) H 01/14/18 07:20 INR 1.2 01/14/18 07:20 APTT 31.3 Seconds (25.6-37.1) 01/14/18 07:20
[2018-01-14] MEDS ORDERED: Vancomycin 1 g Inj IVPB SCH (21:00)
[2018-01-15 06:43] LABS: HEMOGLOBIN 10.6 g/dL (12.0-16.0); MEAN CELL VOLUME 78.7 fl (81.0-99.0); MEAN CORPUSCULAR HEMOGLOBIN 25.6 pg (27.0-31.0); MEAN CORPUSCULAR HGB CONC 32.5 g/dL (33.0-37.0); RBC 4.14 Mil/uL (3.80-5.20); RED CELL DISTRIBUTION WIDTH 16.3 % (11.5-14.5); WHITE BLOOD COUNT 7.9 K/uL (4.8-10.8)
[2018-01-15 07:08] LABS: BLOOD UREA NITROGEN 10 mg/dl (7-17); CALCIUM 9.4 mg/dL (8.4-10.2); GFR AFRICAN-AMERICAN > 60; GFR NON-AFRICAN AMERICAN > 60
--- NOTE | 2018-01-15 07:43 | CP.PCM.PN ---
Subjective - Date & Time of Evaluation Date of Evaluation: 01/15/18 Time of Evaluation: 07:43 - Subjective Subjective: Patient seen and examined at bedside comfortable. Pain well controlled. No acute events overnight. Objective - Vital Signs/Intake and Output Vital Signs (last 24 hours): Temp Pulse Resp BP Pulse Ox 98.4 F 96 H 18 100/63 96 01/15/18 03:58 01/15/18 03:58 01/15/18 03:58 01/15/18 03:58 01/15/18 03:58 - Medications Medications: Current Medications Duloxetine HCl (Cymbalta) 60 mg PO DAILY [facility] Enoxaparin Sodium (Lovenox) 40 mg SC Q24H [facility] PRN Reason: Protocol Hydromorphone HCl (Dilaudid) 0.5 mg IVP Q4 PRN PRN Reason: Pain, severe (8-10) Last Admin: 01/14/18 20:04 Dose: 0.5 mg Lactated Ringer's (Lactated Ringer's) 1,000 mls @ 125 mls/hr IV .Q8H [facility] Last Admin: 01/14/18 22:11 Dose: 125 mls/hr Ertapenem 1 gm/ Sodium (Chloride) 100 mls @ 100 mls/hr IVPB DAILY [facility] Vancomycin HCl 1 gm/ Sodium (Chloride) 250 mls @ 166.667 mls/hr IVPB Q12H [facility] Last Admin: 01/14/18 22:10 Dose: 166.667 mls/hr Meperidine HCl (Demerol) 12.5 mg IVP Q5M PRN PRN Reason: Shivering/Rigor Oxycodone HCl (Oxycodone Immediate Release Tab) 10 mg PO Q6 PRN PRN Reason: Pain, moderate (4-7) - Labs Labs: 01/15/18 05:30 01/15/18 05:30 PT 13.2 Seconds (9.8-13.1) H 01/14/18 07:20 INR 1.2 01/14/18 07:20 APTT 31.3 Seconds (25.6-37.1) 01/14/18 07:20 - Extremities Exam Additional comments: L knee: immobilizer in place, Dressings CDI sensation intact SP/DP/TN motor intact EHL/FHL pedal pulses intact comps soft NT Assessment and Plan (1) Quadriceps tendon rupture Assessment & Plan: POD #1 s/p L quad tendon repair -pain control -knee imm not to be removed -PT/OT TTWB LLE -DVT ppx -discharge planning to TCU today -above d/w Dr. Trejo in agreement Status: Acute
[2018-01-15] MEDS ORDERED: ERTAPENEM 1 GM IVPB SCH (09:00)
--- NOTE | 2018-01-15 09:46 | CP.PCM.PN ---
Subjective - Date & Time of Evaluation Date of Evaluation: 01/15/18 Time of Evaluation: 08:00 - Subjective Subjective: FEELS OK JUST PAIN AT SURGICAL SITE Objective - Vital Signs/Intake and Output Vital Signs (last 24 hours): Temp Pulse Resp BP Pulse Ox 98.2 F 109 H 20 95/55 L 95 01/15/18 08:01 01/15/18 08:01 01/15/18 08:01 01/15/18 08:01 01/15/18 08:01 - Medications Medications: Current Medications Duloxetine HCl (Cymbalta) 60 mg PO DAILY [facility] Last Admin: 01/15/18 08:40 Dose: 60 mg Enoxaparin Sodium (Lovenox) 40 mg SC Q24H [facility] PRN Reason: Protocol Hydromorphone HCl (Dilaudid) 0.5 mg IVP Q4 PRN PRN Reason: Pain, severe (8-10) Last Admin: 01/14/18 20:04 Dose: 0.5 mg Lactated Ringer's (Lactated Ringer's) 1,000 mls @ 125 mls/hr IV .Q8H [facility] Last Admin: 01/14/18 22:11 Dose: 125 mls/hr Ertapenem 1 gm/ Sodium (Chloride) 100 mls @ 100 mls/hr IVPB DAILY [facility] Last Admin: 01/15/18 08:40 Dose: 100 mls/hr Vancomycin HCl 1 gm/ Sodium (Chloride) 250 mls @ 166.667 mls/hr IVPB Q12H [facility] Last Admin: 01/15/18 08:41 Dose: 166.667 mls/hr Meperidine HCl (Demerol) 12.5 mg IVP Q5M PRN PRN Reason: Shivering/Rigor Oxycodone HCl (Oxycodone Immediate Release Tab) 10 mg PO Q6 PRN PRN Reason: Pain, moderate (4-7) - Labs Labs: 01/15/18 05:30 01/15/18 05:30 PT 13.2 Seconds (9.8-13.1) H 01/14/18 07:20 INR 1.2 01/14/18 07:20 APTT 31.3 Seconds (25.6-37.1) 01/14/18 07:20 - Respiratory Exam Respiratory Exam: Clear to Ausculation Bilateral - Cardiovascular Exam Cardiovascular Exam: REGULAR RHYTHM, +S1, +S2 - Extremities Exam Additional comments: LLE IN IMMOBILIZER - Additional Findings Additional findings: OR NOTES SEEN WITH REPAIR OF LEFT QUADRICEPS TENDONS H/H Assessment and Plan - Assessment and Plan (Free Text) Assessment: SURGICAL REPAIR OF RUPTURE OF LEFT QUADRICEPS TENDON Plan: CONTINUE LOVENOX AND IV ANTIBIOTICS
--- NOTE | 2018-01-15 12:23 | RAD ---
Date of service: 01/14/2018 PROCEDURE: Fluoroscopy up to 1 hr. HISTORY: LEFT KNEE COMPARISON: None TECHNIQUE: Standard protocol for this study/examination. FINDINGS: Open Total fluoroscopic time (continuous mode) utilized during the procedure 11.9 (seconds). IMPRESSION: Submitted images from the current procedure: 5.0.
[2018-01-15] MEDS: oxyCODONE 10 mg Immediate Release Tab PO PRN ×2 (12:30→20:29)
--- NOTE | 2018-01-15 12:39 | CP.PCM.PN ---
Subjective - Date & Time of Evaluation Date of Evaluation: 01/15/18 Time of Evaluation: 11:45 - Subjective Subjective: Pt is afebrile states that her pain is controlled denies CP no SOB no abd pain left knee with immobilizer and left foot with short boot Objective - Vital Signs/Intake and Output Vital Signs (last 24 hours): Temp Pulse Resp BP Pulse Ox 98.2 F 109 H 20 95/55 L 95 01/15/18 08:01 01/15/18 08:01 01/15/18 08:01 01/15/18 08:01 01/15/18 08:01 - Medications Medications: Current Medications Duloxetine HCl (Cymbalta) 60 mg PO DAILY [facility] Last Admin: 01/15/18 08:40 Dose: 60 mg Enoxaparin Sodium (Lovenox) 40 mg SC Q24H [facility] PRN Reason: Protocol Hydromorphone HCl (Dilaudid) 0.5 mg IVP Q4 PRN PRN Reason: Pain, severe (8-10) Last Admin: 01/14/18 20:04 Dose: 0.5 mg Lactated Ringer's (Lactated Ringer's) 1,000 mls @ 125 mls/hr IV .Q8H [facility] Last Admin: 01/14/18 22:11 Dose: 125 mls/hr Ertapenem 1 gm/ Sodium (Chloride) 100 mls @ 100 mls/hr IVPB DAILY [facility] Last Admin: 01/15/18 08:40 Dose: 100 mls/hr Vancomycin HCl 1 gm/ Sodium (Chloride) 250 mls @ 166.667 mls/hr IVPB Q12H [facility] Last Admin: 01/15/18 08:41 Dose: 166.667 mls/hr Meperidine HCl (Demerol) 12.5 mg IVP Q5M PRN PRN Reason: Shivering/Rigor Oxycodone HCl (Oxycodone Immediate Release Tab) 10 mg PO Q6 PRN PRN Reason: Pain, moderate (4-7) Last Admin: 01/15/18 12:30 Dose: 10 mg - Labs Labs: 01/15/18 05:30 01/15/18 05:30 PT 13.2 Seconds (9.8-13.1) H 01/14/18 07:20 INR 1.2 01/14/18 07:20 APTT 31.3 Seconds (25.6-37.1) 01/14/18 07:20 - Constitutional Appears: No Acute Distress - Head Exam Head Exam: ATRAUMATIC, NORMAL INSPECTION, NORMOCEPHALIC - ENT Exam ENT Exam: Mucous Membranes Moist, Normal External Ear Exam - Neck Exam Neck Exam: Full ROM. absent: Meningismus - Respiratory Exam Respiratory Exam: NORMAL BREATHING PATTERN. absent: Respiratory Distress - Cardiovascular Exam Cardiovascular Exam: REGULAR RHYTHM, +S1, +S2 - GI/Abdominal Exam GI & Abdominal Exam: Soft, Normal Bowel Sounds. absent: Tenderness - Extremities Exam Extremities Exam: Normal Capillary Refill. absent: Calf Tenderness Additional comments: left knee with immobilizer short boot on left foot - Neurological Exam Neurological Exam: Alert, Awake, CN II-XII Intact, Oriented x3 Neuro motor strength exam: Left Upper Extremity: 5, Right Upper Extremity: 5, Left Lower Extremity: 5, Right Lower Extremity: 5 - Psychiatric Exam Psychiatric exam: Normal Affect, Normal Mood - Skin Skin Exam: Dry, Normal Color, Warm Assessment and Plan (1) Quadriceps tendon rupture Status: Acute (2) Heterotopic ossification of bone Status: Acute (3) Fx cuneiform, foot-closed Status: Acute (4) History of total left knee replacement (TKR) Status: Chronic (5) Depression Status: Chronic - Assessment and Plan (Free Text) Assessment: 62 year old female PMH depression, s/p L TKR 09/2017, revision L TKR 11/2017, returns after sustaining a fall getting out of the shower. Patient states pain is moderate, constant, L knee, not associated with any other symptoms. Ortho consulted - Dr Trejo - Pt then underwent surgery on 01/14. (1) Quadriceps tendon rupture, Left knee periprosthetic s/p Repair Status: Acute Pain mgt Physical therapy consulted Ortho folloowing pt (2) Heterotopic ossification of bone s/p Excision Status: Acute (3) Stress Fracture cuneiform, foot-closed s/p Closed Reduction and application of short leg boot Status: Acute (4) History of total left knee replacement (TKR) Status: Chronic hx of knee infection Pt was on IV Vanco and Ertapenem x 6 wks Home infusion ID consult - Dr segundo - rec to cont IV antibiotics (5) Depression Status: Chronic cont Cymbalta 6. DVT proph - Lovenox
[2018-01-15] MEDS: Enoxaparin 40 mg Syringe SC SCH (16:13)
[2018-01-15] MEDS ORDERED: oxyCODONE 10 mg Immediate Release Tab PO STA (16:24)
[2018-01-16 06:42] LABS: HEMOGLOBIN 10.1 g/dL (12.0-16.0); MEAN CORPUSCULAR HEMOGLOBIN 25.9 pg (27.0-31.0); MEAN CORPUSCULAR HGB CONC 32.8 g/dL (33.0-37.0); RBC 3.9 Mil/uL (3.80-5.20); RED CELL DISTRIBUTION WIDTH 16.7 % (11.5-14.5); WHITE BLOOD COUNT 6.6 K/uL (4.8-10.8)
[2018-01-16 07:05] LABS: BLOOD UREA NITROGEN 12 mg/dl (7-17); CALCIUM 8.8 mg/dL (8.4-10.2); GFR AFRICAN-AMERICAN > 60; GFR NON-AFRICAN AMERICAN > 60
[2018-01-16] MEDS ORDERED: Potassium Chloride 20 mEq/15 ml LIQ UD PO ONE (07:37)
[2018-01-16] MEDS: oxyCODONE 10 mg Immediate Release Tab PO PRN (09:47)
--- NOTE | 2018-01-16 10:31 | CP.PCM.PN ---
Subjective - Date & Time of Evaluation Date of Evaluation: 01/16/18 Time of Evaluation: 07:30 - Subjective Subjective: Patient seen and examined at bedside comfortable. Pain well controlled. No new complaints. Denies CP/SOB/dizziness. Objective - Vital Signs/Intake and Output Vital Signs (last 24 hours): Temp Pulse Resp BP Pulse Ox 99.3 F 101 H 20 104/64 96 01/16/18 08:06 01/16/18 08:06 01/16/18 08:06 01/16/18 08:06 01/16/18 08:06 - Medications Medications: Current Medications Duloxetine HCl (Cymbalta) 60 mg PO DAILY [facility] Last Admin: 01/16/18 09:46 Dose: 60 mg Enoxaparin Sodium (Lovenox) 40 mg SC Q24H [facility] PRN Reason: Protocol Last Admin: 01/15/18 16:13 Dose: 40 mg Hydromorphone HCl (Dilaudid) 0.5 mg IVP Q4 PRN PRN Reason: Pain, severe (8-10) Last Admin: 01/14/18 20:04 Dose: 0.5 mg Lactated Ringer's (Lactated Ringer's) 1,000 mls @ 125 mls/hr IV .Q8H [facility] Last Admin: 01/14/18 22:11 Dose: 125 mls/hr Ertapenem 1 gm/ Sodium (Chloride) 100 mls @ 100 mls/hr IVPB DAILY [facility] Last Admin: 01/16/18 09:46 Dose: 100 mls/hr Vancomycin HCl 1 gm/ Sodium (Chloride) 250 mls @ 166.667 mls/hr IVPB Q12H [facility] Last Admin: 01/15/18 20:24 Dose: 166.667 mls/hr Oxycodone HCl (Oxycodone Immediate Release Tab) 10 mg PO Q6 PRN PRN Reason: Pain, moderate (4-7) Last Admin: 01/16/18 09:47 Dose: 10 mg - Labs Labs: 01/16/18 05:30 01/16/18 05:30 PT 13.2 Seconds (9.8-13.1) H 01/14/18 07:20 INR 1.2 01/14/18 07:20 APTT 31.3 Seconds (25.6-37.1) 01/14/18 07:20 - Extremities Exam Additional comments: L knee: immobilizer in place, Dressings CDI, dressings removed, wound CDI with mariana, no drainage sensation intact SP/DP/TN motor intact EHL/FHL pedal pulses intact comps soft NT Assessment and Plan (1) Quadriceps tendon rupture Assessment & Plan: POD #2 s/p L quad tendon repair -Dressings changed -pain control -knee imm not to be removed -PT/OT TTWB LLE -DVT ppx -orthopedically stable for discharge -above d/w Dr. Trejo in agreement Status: Acute
--- NOTE | 2018-01-16 12:54 | CP.PCM.PN ---
Subjective - Date & Time of Evaluation Date of Evaluation: 01/16/18 Time of Evaluation: 11:30 - Subjective Subjective: NO CHEST PAIN OR SOB FEELS OK Objective - Vital Signs/Intake and Output Vital Signs (last 24 hours): Temp Pulse Resp BP Pulse Ox 99.3 F 101 H 20 104/64 96 01/16/18 08:06 01/16/18 08:06 01/16/18 08:06 01/16/18 08:06 01/16/18 08:06 - Medications Medications: Current Medications Duloxetine HCl (Cymbalta) 60 mg PO DAILY [facility] Last Admin: 01/16/18 09:46 Dose: 60 mg Enoxaparin Sodium (Lovenox) 40 mg SC Q24H [facility] PRN Reason: Protocol Last Admin: 01/15/18 16:13 Dose: 40 mg Hydromorphone HCl (Dilaudid) 0.5 mg IVP Q4 PRN PRN Reason: Pain, severe (8-10) Last Admin: 01/14/18 20:04 Dose: 0.5 mg Lactated Ringer's (Lactated Ringer's) 1,000 mls @ 125 mls/hr IV .Q8H [facility] Last Admin: 01/14/18 22:11 Dose: 125 mls/hr Ertapenem 1 gm/ Sodium (Chloride) 100 mls @ 100 mls/hr IVPB DAILY [facility] Last Admin: 01/16/18 09:46 Dose: 100 mls/hr Vancomycin HCl 1 gm/ Sodium (Chloride) 250 mls @ 166.667 mls/hr IVPB Q12H [facility] Last Admin: 01/16/18 12:26 Dose: 166.667 mls/hr Oxycodone HCl (Oxycodone Immediate Release Tab) 10 mg PO Q6 PRN PRN Reason: Pain, moderate (4-7) Last Admin: 01/16/18 09:47 Dose: 10 mg - Labs Labs: 01/16/18 05:30 01/16/18 05:30 PT 13.2 Seconds (9.8-13.1) H 01/14/18 07:20 INR 1.2 01/14/18 07:20 APTT 31.3 Seconds (25.6-37.1) 01/14/18 07:20 - Respiratory Exam Respiratory Exam: Clear to Ausculation Bilateral - Cardiovascular Exam Cardiovascular Exam: REGULAR RHYTHM - Extremities Exam Additional comments: LLE IN IMMOBILIZER RLE WITHOUT EDEMA Assessment and Plan - Assessment and Plan (Free Text) Plan: CONTINUE LOVENOX AND ANTIBIOTICS FOR DISCHARGE
[2018-01-16] MEDS ORDERED: oxyCODONE 10 mg Immediate Release Tab PO STA (14:18)
--- NOTE | 2018-01-16 15:18 | CP.PCM.PN ---
Subjective - Date & Time of Evaluation Date of Evaluation: 01/16/18 Time of Evaluation: 15:16 - Subjective Subjective: patient seen examined bedside no complaints doing well would like to go to TCU, discussing arrangements with social work hd stable nad Objective - Vital Signs/Intake and Output Vital Signs (last 24 hours): Temp Pulse Resp BP Pulse Ox 99.3 F 105 H 20 98/51 L 96 01/16/18 08:06 01/16/18 13:46 01/16/18 08:06 01/16/18 13:46 01/16/18 08:06 - Medications Medications: Current Medications Duloxetine HCl (Cymbalta) 60 mg PO DAILY [facility] Last Admin: 01/16/18 09:46 Dose: 60 mg Enoxaparin Sodium (Lovenox) 40 mg SC Q24H [facility] PRN Reason: Protocol Last Admin: 01/15/18 16:13 Dose: 40 mg Hydromorphone HCl (Dilaudid) 0.5 mg IVP Q4 PRN PRN Reason: Pain, severe (8-10) Last Admin: 01/14/18 20:04 Dose: 0.5 mg Lactated Ringer's (Lactated Ringer's) 1,000 mls @ 125 mls/hr IV .Q8H [facility] Last Admin: 01/14/18 22:11 Dose: 125 mls/hr Ertapenem 1 gm/ Sodium (Chloride) 100 mls @ 100 mls/hr IVPB DAILY [facility] Last Admin: 01/16/18 09:46 Dose: 100 mls/hr Vancomycin HCl 1 gm/ Sodium (Chloride) 250 mls @ 166.667 mls/hr IVPB Q12H [facility] Last Admin: 01/16/18 12:26 Dose: 166.667 mls/hr Oxycodone HCl (Oxycodone Immediate Release Tab) 10 mg PO Q6 PRN PRN Reason: Pain, moderate (4-7) Last Admin: 01/16/18 09:47 Dose: 10 mg - Labs Labs: 01/16/18 05:30 01/16/18 05:30 PT 13.2 Seconds (9.8-13.1) H 01/14/18 07:20 INR 1.2 01/14/18 07:20 APTT 31.3 Seconds (25.6-37.1) 01/14/18 07:20 - Constitutional Appears: Non-toxic, No Acute Distress - Head Exam Head Exam: ATRAUMATIC, NORMOCEPHALIC - Eye Exam Eye Exam: EOMI, Normal appearance, PERRL Pupil Exam: NORMAL ACCOMODATION - ENT Exam ENT Exam: Mucous Membranes Moist, Normal Oropharynx - Neck Exam Neck Exam: Full ROM, Normal Inspection - Respiratory Exam Respiratory Exam: Clear to Ausculation Bilateral, NORMAL BREATHING PATTERN - Cardiovascular Exam Cardiovascular Exam: RRR, +S1, +S2 - GI/Abdominal Exam GI & Abdominal Exam: Soft, Normal Bowel Sounds - Extremities Exam Extremities Exam: Normal Capillary Refill. absent: Calf Tenderness - Neurological Exam Neurological Exam: Alert, Oriented x3 - Psychiatric Exam Psychiatric exam: Normal Affect, Normal Mood - Skin Skin Exam: Dry, Warm Assessment and Plan - Assessment and Plan (Free Text) Plan: 62 year old female PMH depression, s/p L TKR 09/2017, revision L TKR 11/2017, returns after sustaining a fall getting out of the shower. Patient states pain is moderate, constant, L knee, not associated with any other symptoms. Ortho consulted - Dr Trejo - Pt then underwent surgery on 01/14. Patient stable, awaiting placement to TCU. 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 DVT proph - Lovenox
[2018-01-16] MEDS: Enoxaparin 40 mg Syringe SC SCH (16:26)
--- NOTE | 2018-01-16 18:44 | CP.PCM.PN ---
Subjective - Date & Time of Evaluation Date of Evaluation: 01/16/18 Time of Evaluation: 18:43 - Subjective Subjective: i d note agree c need for TCU TROUGH IS 15.6 HAVE ADJUSTED VANCOMYCIN TO 500 MG IVPBQ1 Objective - Vital Signs/Intake and Output Vital Signs (last 24 hours): Temp Pulse Resp BP Pulse Ox 99.8 F H 106 H 108 H 95/52 L 94 L 01/16/18 16:28 01/16/18 16:28 01/16/18 16:28 01/16/18 16:28 01/16/18 16:28 - Medications Medications: Current Medications Duloxetine HCl (Cymbalta) 60 mg PO DAILY [facility] Last Admin: 01/16/18 09:46 Dose: 60 mg Enoxaparin Sodium (Lovenox) 40 mg SC Q24H [facility] PRN Reason: Protocol Last Admin: 01/16/18 16:26 Dose: 40 mg Hydromorphone HCl (Dilaudid) 0.5 mg IVP Q4 PRN PRN Reason: Pain, severe (8-10) Last Admin: 01/14/18 20:04 Dose: 0.5 mg Lactated Ringer's (Lactated Ringer's) 1,000 mls @ 125 mls/hr IV .Q8H [facility] Last Admin: 01/14/18 22:11 Dose: 125 mls/hr Ertapenem 1 gm/ Sodium (Chloride) 100 mls @ 100 mls/hr IVPB DAILY [facility] Last Admin: 01/16/18 09:46 Dose: 100 mls/hr Vancomycin HCl 1 gm/ Sodium (Chloride) 250 mls @ 166.667 mls/hr IVPB Q12H [facility] Last Admin: 01/16/18 12:26 Dose: 166.667 mls/hr Oxycodone HCl (Oxycodone Immediate Release Tab) 10 mg PO Q6 PRN PRN Reason: Pain, moderate (4-7) Last Admin: 01/16/18 09:47 Dose: 10 mg - Labs Labs: 01/16/18 05:30 01/16/18 05:30 PT 13.2 Seconds (9.8-13.1) H 01/14/18 07:20 INR 1.2 01/14/18 07:20 APTT 31.3 Seconds (25.6-37.1) 01/14/18 07:20
[2018-01-17 06:36] LABS: HEMOGLOBIN 10.3 g/dL (12.0-16.0); MEAN CELL VOLUME 78.1 fl (81.0-99.0); MEAN CORPUSCULAR HEMOGLOBIN 25.9 pg (27.0-31.0); MEAN CORPUSCULAR HGB CONC 33.2 g/dL (33.0-37.0); RBC 3.97 Mil/uL (3.80-5.20); RED CELL DISTRIBUTION WIDTH 16.9 % (11.5-14.5); WHITE BLOOD COUNT 7.4 K/uL (4.8-10.8)
[2018-01-17 07:57] LABS: BLOOD UREA NITROGEN 10 mg/dl (7-17); CALCIUM 8.8 mg/dL (8.4-10.2); GFR AFRICAN-AMERICAN > 60; GFR NON-AFRICAN AMERICAN > 60
[2018-01-17 08:06] VITALS: BP 99/59; PULSE 102; RESP 20; TEMP 99.8; O2SAT 98
[2018-01-17] MEDS: oxyCODONE 10 mg Immediate Release Tab PO PRN (09:18)
--- NOTE | 2018-01-17 09:44 | CP.PCM.PN ---
Subjective - Date & Time of Evaluation Date of Evaluation: 01/17/18 Time of Evaluation: 09:30 - Subjective Subjective: NO CHEST PAIN OR SOB Objective - Vital Signs/Intake and Output Vital Signs (last 24 hours): Temp Pulse Resp BP Pulse Ox 99.8 F H 102 H 20 99/59 L 98 01/17/18 08:04 01/17/18 08:04 01/17/18 08:04 01/17/18 08:04 01/17/18 08:04 - Medications Medications: Current Medications Duloxetine HCl (Cymbalta) 60 mg PO DAILY [facility] Last Admin: 01/17/18 09:19 Dose: 60 mg Enoxaparin Sodium (Lovenox) 40 mg SC Q24H [facility] PRN Reason: Protocol Last Admin: 01/16/18 16:26 Dose: 40 mg Hydromorphone HCl (Dilaudid) 0.5 mg IVP Q4 PRN PRN Reason: Pain, severe (8-10) Last Admin: 01/14/18 20:04 Dose: 0.5 mg Lactated Ringer's (Lactated Ringer's) 1,000 mls @ 125 mls/hr IV .Q8H [facility] Last Admin: 01/14/18 22:11 Dose: 125 mls/hr Ertapenem 1 gm/ Sodium (Chloride) 100 mls @ 100 mls/hr IVPB DAILY [facility] Last Admin: 01/17/18 09:23 Dose: 100 mls/hr Vancomycin HCl 500 mg/ Sodium (Chloride) 100 mls @ 100 mls/hr IVPB Q12 [facility] PRN Reason: Protocol Last Admin: 01/17/18 09:23 Dose: 100 mls/hr Oxycodone HCl (Oxycodone Immediate Release Tab) 10 mg PO Q6 PRN PRN Reason: Pain, moderate (4-7) Last Admin: 01/17/18 09:18 Dose: 10 mg - Labs Labs: 01/17/18 05:25 01/17/18 05:25 PT 13.2 Seconds (9.8-13.1) H 01/14/18 07:20 INR 1.2 01/14/18 07:20 APTT 31.3 Seconds (25.6-37.1) 01/14/18 07:20 - Respiratory Exam Respiratory Exam: Clear to Ausculation Bilateral - Cardiovascular Exam Cardiovascular Exam: REGULAR RHYTHM, +S1, +S2 Assessment and Plan - Assessment and Plan (Free Text) Assessment: FALL WITH LEFT QUADRICEPS RUPTURE AND SURGICAL REPAIR Plan: FOR REHAB
--- NOTE | 2018-01-17 09:55 | CP.PCM.PN ---
Subjective - Date & Time of Evaluation Date of Evaluation: 01/17/18 Time of Evaluation: 09:00 - Subjective Subjective: Patient seen and examined at bedside. Pain well controlled. No new complaints. Objective - Vital Signs/Intake and Output Vital Signs (last 24 hours): Temp Pulse Resp BP Pulse Ox 99.8 F H 102 H 20 99/59 L 98 01/17/18 08:04 01/17/18 08:04 01/17/18 08:04 01/17/18 08:04 01/17/18 08:04 - Medications Medications: Current Medications Duloxetine HCl (Cymbalta) 60 mg PO DAILY [facility] Last Admin: 01/17/18 09:19 Dose: 60 mg Enoxaparin Sodium (Lovenox) 40 mg SC Q24H [facility] PRN Reason: Protocol Last Admin: 01/16/18 16:26 Dose: 40 mg Hydromorphone HCl (Dilaudid) 0.5 mg IVP Q4 PRN PRN Reason: Pain, severe (8-10) Last Admin: 01/14/18 20:04 Dose: 0.5 mg Lactated Ringer's (Lactated Ringer's) 1,000 mls @ 125 mls/hr IV .Q8H [facility] Last Admin: 01/14/18 22:11 Dose: 125 mls/hr Ertapenem 1 gm/ Sodium (Chloride) 100 mls @ 100 mls/hr IVPB DAILY [facility] Last Admin: 01/17/18 09:23 Dose: 100 mls/hr Vancomycin HCl 500 mg/ Sodium (Chloride) 100 mls @ 100 mls/hr IVPB Q12 [facility] PRN Reason: Protocol Last Admin: 01/17/18 09:23 Dose: 100 mls/hr Oxycodone HCl (Oxycodone Immediate Release Tab) 10 mg PO Q6 PRN PRN Reason: Pain, moderate (4-7) Last Admin: 01/17/18 09:18 Dose: 10 mg - Labs Labs: 01/17/18 05:25 01/17/18 05:25 PT 13.2 Seconds (9.8-13.1) H 01/14/18 07:20 INR 1.2 01/14/18 07:20 APTT 31.3 Seconds (25.6-37.1) 01/14/18 07:20 - Extremities Exam Additional comments: L knee: immobilizer in place, Dressings CDI, no drainage sensation intact SP/DP/TN motor intact EHL/FHL pedal pulses intact comps soft NT Assessment and Plan (1) Quadriceps tendon rupture Assessment & Plan: POD #3 s/p L quad tendon repair -knee imm not to be removed -PT/OT TTWB LLE with boot -DVT ppx -orthopedically stable for discharge today to [facility] -above d/w Dr. Trejo in agreement Status: Acute
--- NOTE | 2018-01-17 10:48 | OP ---
Copied To: Tal Trejo MD Attending MD: Tal Trejo MD PROCEDURE DATE: 01/14/2018 LOCATION: [facility]. SURGEON: Tal Trejo MD PREOPERATIVE DIAGNOSIS: Rule out Stress fracture of the cuneiform of the left foot. POSTOPERATIVE DIAGNOSIS: Rule out Stress fracture of the cuneiform of the left foot. PROCEDURE: Evaluation and manipulation of the left foot under anesthesia and application of short leg CAM walker. CUSTOM GARMENT DESIGNER: GRANT Rodriguez. SECOND RADIAL ARM SAW OPERATOR: Podiatry resident, Negr[place]. TYPE OF ANESTHESIA: General endotracheal anesthesia. COMPLICATIONS: No complications. DRAINS: No drains. OPERATIVE INDICATION: Jagruti Billingsley is a 62-year-old woman well known to my practice. The patient presented after successful total knee replacement arthroplasty. The patient unfortunately sustained a fall in the shower, sustaining a hyperflexion of the knee and a quadriceps tendon rupture. The patient was evaluated in the office. There was massive swelling. The situation was given a chance to calm down and the patient was admitted on 01/14/2018, for primary repair and possible revision if the knee is unstable. Pros, cons, risks, and benefits of surgical approach were discussed at length. The possibility of mechanical failure, infection, thromboembolic disease, secondary or tertiary surgery was discussed. Concept of leg length inequality, wound healing problems, and nerve injury were discussed. The patient can no longer stand the discomfort, understands the situation, and wished the surgery to be accomplished. Informed consent was accomplished in the presence of her , Carson. OPERATIVE PROCEDURE: After having obtained informed consent in the above fashion, after the satisfactory induction of general anesthesia and regional block by Dr. Breaux, after having identified the side, site, and procedure, and a critical pause/time-out, the patient identified as Jagruti Billingsley, in the supine position with all bony prominences well padded, left lower extremity was prepped and free draped in the usual fashion for lower extremity surgery. The left lower extremity was prepped and free draped in the usual fashion for lower extremity surgery. Prior to the skin incision, flexion and extension was evaluated. There was found to be no anterior instability. There was found to be a palpable defect. After sterilely prepping and draping and after having performed the critical pause/time-out, an incision was described two fingerbreadths distal to the original incision, two fingerbreadths proximal. The skin incision was carried down through the skin and subcutaneous tissue. An ellipse of skin, subcutaneous tissue, and muscle was elevated and the quadriceps tendon was identified. The area superficial to the patellar ligament was elevated. There was found to be evidence of rupture of the medial and lateral patellar retinaculum. This having been accomplished, there was a minimal cuff of tissue at the superior aspect of the patella. The medial arthrotomy had been found to be compromised through the distal aspect of patella. The rupture was turned laterally to the lateral patellar retinaculum. This having been accomplished, the skin incision having been carried out through the skin and subcutaneous tissue, an ellipse of skin had been removed. Great care was taken to preserve the integrity of the remaining quadriceps tendon, which had split both horizontally and longitudinally. This having been accomplished, the wound was thoroughly irrigated. Fibrinous material because of the amount of time that has elapsed since the trauma was carefully debrided, the wound was thoroughly irrigated and the tourniquet was deflated. The hemostasis controlled with the Aquamantys. Thorough irrigation was accomplished. The patellar ligament was intact. There was found to be no evidence of significant patellar fracture. There was an osteophyte distally which was present postoperatively. Again, the patient had been enjoying an excellent postoperative course. This having been accomplished with the knee now in extension or approximately 5 degrees of flexion held in with the bolster, a modified Huan technique was accomplished extending from proximal to distal. This having been accomplished, it should be noted that the primary median arthrotomy to the superior aspect of the prosthetic patella was repaired using #2 FiberWire. This having been accomplished using #2 FiberWire, repair was accomplished to the superior aspect of the patella. Attention now was turned to the lateral patellar retinaculum. The lateral patellar retinaculum was instantly repaired using interrupted #2 FiberWire. At this point in time, using #5 FiberWire the longitudinal split proximally primarily was repaired using inverted mattress sutures. At this point in time, a secondary Wilburton type suture was employed and was kept free. At this point in time, drilling was accomplished in the patella using the appropriate size drill bit and the Arthrex PEEK anchor was placed in the superior aspect of the patella. Two free ends of the #2 FiberWire are Bunnelled proximally now with the knee in full extension causing the quadriceps tendon to dock quite nicely at the superior aspect of the patella. Primary repair was accomplished in this way and the FiberWire was tied at this point. The repair was found to be excellent. A secondary #5 was used and sutured to the cuff of tissue proximally. There was found to be no gaps. The medial and lateral patellar retinaculum had been repaired using interrupted FiberWire. The wound was thoroughly irrigated. Closures in layers of 0 Vicryl and 2-0 Vicryl and mariana for skin. The tourniquet had been deflated, so no Hemovac drain was employed. Alex Toney compression dressing and knee immobilizers applied. Tal Trejo MD ADDENDUM OPERATIVE PROCEDURE: After the satisfactory closure of the wound, under the surgeon's direction, the fluoroscope was positioned. Video images were generated. Therapeutic decisions were made therefrom. It was found on the preoperative MRI to be a concern for fracture of the cuneiform. Under fluoroscopy and fluoroscopic control, the foot was manipulated and there was found to be no displaced fracture. The foot was manipulated and a Alex Toney compression dressing and short leg CAM walker was applied to the left lower extremity. This is the second part of the procedure that followed after the primary body of the operative report which is described above, which essentially describes the primary repair of the quadriceps tendon rupture, repair of the medial and lateral retinaculum, application of Alex Toney compression dressing and knee immobilizer, excision of skin, subcutaneous tissue, and muscle. The addendum is evaluation and manipulation of the left foot under anesthesia, application of Alex Toney compression dressing and short leg CAM walker. CHELSEA
--- NOTE | 2018-01-17 11:17 | CP.PCM.DIS ---
Provider - Provider Date of Admission: 01/14/18 16:54 Attending physician: Tiff Francois DO Primary care physician: Jesus Gamboa DO Time Spent in preparation of Discharge (in minutes): 30 Hospital Course - Lab Results Lab Results: Micro Results 01/14/18 15:05 Body Fluid - Knee-Left Gram Stain - Final 01/14/18 15:05 Body Fluid - Knee-Left Anaerobic Culture - Final NO ANAEROBES ISOLATED. 01/14/18 15:05 Body Fluid - Knee-Left Body Fluid Culture - Preliminary NO GROWTH AFTER 3 DAYS 01/14/18 14:00 Knee - Left Gram Stain - Final 01/14/18 14:00 Knee - Left Wound Culture - Preliminary No growth. 01/14/18 14:00 Knee - Left Gram Stain - Final 01/14/18 14:00 Knee - Left Wound Culture - Preliminary No growth. 01/14/18 14:00 Knee - Left Gram Stain - Final 01/14/18 14:00 Knee - Left Wound Culture - Preliminary No growth. 01/14/18 14:00 Knee - Left Gram Stain - Final 01/14/18 14:00 Knee - Left Wound Culture - Preliminary No growth. 01/14/18 14:00 Knee - Left Gram Stain - Final 01/14/18 14:00 Knee - Left Wound Culture - Preliminary No growth. 01/14/18 14:00 Knee - Left Gram Stain - Final 01/14/18 14:00 Knee - Left Wound Culture - Preliminary No growth. 01/14/18 14:00 Knee - Left Gram Stain - Final 01/14/18 14:00 Knee - Left Wound Culture - Preliminary No growth. 01/14/18 15:05 Knee - Left Gram Stain - Final 01/14/18 15:05 Knee - Left Anaerobic Culture - Final NO ANAEROBES ISOLATED. 01/14/18 15:05 Knee - Left Wound Culture - Preliminary Gram Positive Cocci 01/14/18 15:05 Other: Please Indicate Mycobacterial Culture - Preliminary Most Recent Lab Values WBC 7.4 K/uL (4.8-10.8) 01/17/18 05:25 RBC 3.97 Mil/uL (3.80-5.20) 01/17/18 05:25 Hgb 10.3 g/dL (12.0-16.0) L 01/17/18 05:25 Hct 31.0 % (34.0-47.0) L 01/17/18 05:25 MCV 78.1 fl (81.0-99.0) L 01/17/18 05:25 MCH 25.9 pg (27.0-31.0) L 01/17/18 05:25 MCHC 33.2 g/dL (33.0-37.0) 01/17/18 05:25 RDW 16.9 % (11.5-14.5) H 01/17/18 05:25 Plt Count 214 K/uL (130-400) 01/17/18 05:25 PT 13.2 Seconds (9.8-13.1) H 01/14/18 07:20 INR 1.2 01/14/18 07:20 APTT 31.3 Seconds (25.6-37.1) 01/14/18 07:20 Sodium 137 mmol/l (132-148) 01/17/18 05:25 Potassium 3.5 MMOL/L (3.6-5.0) L 01/17/18 05:25 Chloride 105 mmol/L (98-107) 01/17/18 05:25 Carbon Dioxide 24 mmol/L (22-30) 01/17/18 05:25 Anion Gap 12 (10-20) 01/17/18 05:25 BUN 10 mg/dl (7-17) 01/17/18 05:25 Creatinine 0.5 mg/dl (0.7-1.2) L 01/17/18 05:25 Est GFR ( Amer) > 60 01/17/18 05:25 Est GFR (Non-Af Amer) > 60 01/17/18 05:25 Random Glucose 101 mg/dL (65-105) 01/17/18 05:25 Calcium 8.8 mg/dL (8.4-10.2) 01/17/18 05:25 25-OH Vitamin D Total 18.9 NG/ML (30.0-100.0) L 01/16/18 05:30 Urine Color Yellow (YELLOW) 01/14/18 07:20 Urine Clarity Cloudy (Clear) 01/14/18 07:20 Urine pH 6.0 (5.0-8.0) 01/14/18 07:20 Ur Specific [place] 1.012 (1.003-1.030) 01/14/18 07:20 Urine Protein 100 mg/dL (NEGATIVE) 01/14/18 07:20 Urine Glucose (UA) Neg mg/dL (Normal) 01/14/18 07:20 Urine Ketones Negative mg/dL (NEGATIVE) 01/14/18 07:20 Urine Blood Moderate (NEGATIVE) 01/14/18 07:20 Urine Nitrate Negative (NEGATIVE) 01/14/18 07:20 Urine Bilirubin Negative (NEGATIVE) 01/14/18 07:20 Urine Urobilinogen 0.2-1.0 mg/dL (0.2-1.0) 01/14/18 07:20 Ur Leukocyte Esterase Large Fabiola/uL (Negative) 01/14/18 07:20 Urine RBC (Auto) 45 /hpf (0-3) H 01/14/18 07:20 Urine Microscopic WBC 69 /hpf (0-5) H 01/14/18 07:20 Ur Squamous Epith Cells 9 /hpf (0-5) H 01/14/18 07:20 Ur Renal Epithelial Cell < 1 /hpf (0-3) 01/14/18 07:20 Fluid Type Synovial fluid 01/14/18 15:05 Synovial WBC 460.0 /mm3 (0.0-150.0) H 01/14/18 15:05 Synovial RBC 183876.0 /mm3 (0.0-0.0) H 01/14/18 15:05 Synovial Neutrophils 52.0 % (0-0) H 01/14/18 15:05 Synovial Lymphocytes 22.0 % (0-0) H 01/14/18 15:05 Synov Monos/Macrophage 26 % (0-0) H 01/14/18 15:05 Synovial Fluid Comment Cloudy 01/14/18 15:05 Vancomycin Trough 15.6 ug/mL (5.0-10.0) H 01/16/18 05:30 Blood Type B POSITIVE 01/14/18 07:20 Antibody Screen Negative 01/14/18 07:20 Crossmatch See Detail 01/14/18 07:20 BBK History Checked Patient has bt 01/14/18 07:20 - Hospital Course Hospital Course: 62 year old female PMH depression, s/p L TKR 09/2017, revision L TKR 11/2017, returns after sustaining a fall getting out of the shower. Patient states pain is moderate, constant, L knee, not associated with any other symptoms. Ortho consulted - Dr Trejo - Pt then underwent surgery on 01/14. Patient stable, discharge home with 4 more weeks of ABX. follow up with ortho, id, pcp in one week. 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 DVT proph - Lovenox Discharge Exam - Head Exam Additional comments: Vitals Reviewed GEN: WDWN, alert, cooperative HEENT: NCAT, PERRL, EOMI HEART: RRR, +S1S2, NO MRG LUNG: CTAB, NO WRR ABD: soft, NT, ND, No HSM, No masses EXT: normal pedal pulses NEURO: awake, alert SKIN: warm, dry PSYCH: normal mood, normal affect Discharge Plan - Discharge Medications Prescriptions: DULoxetine [Cymbalta] 60 mg PO DAILY #30 ecc Ertapenem [Invanz] 1 gm IJ DAILY #28 pds oxyCODONE [oxyCODONE Immediate Release Tab] 10 mg PO Q6 PRN #20 tab PRN Reason: Pain, Moderate (4-7) Vancomycin [Vancomycin Inj] 1 gm IV Q12 #56 vial - Follow Up Plan Condition: GOOD Disposition: HOME/ ROUTINE Instructions: Total Knee Replacement (DC), Knee Immobilizer (DC), Knee Immobilizer (GEN), Quadriceps Exercises (GEN) Referrals: Tal Trejo III, MD [Staff Provider] - Jesus Gamboa DO [Primary Care Provider] -
== END 2018-01-17 14:30 | disposition home health service (06) | DRG 501 ==
LOC: H.OPSURG 06:16 → H.MEDSURG1 16:54
PROVIDERS: ADMIT Student in an Organized Health Care Education/Training Program; ATTEND Student in an Organized Health Care Education/Training Program
PROC: 3E0T33Z Introduction of Anti-inflammatory into Peripheral Nerves and Plexi, Percutaneous Approach (ICD-10-PCS; 2018-01-14)
PROC: 0LQM0ZZ Repair Left Upper Leg Tendon, Open Approach (ICD-10-PCS; principal; 2018-01-14 09:15)
PROC: 0QSMXZZ Reposition Left Tarsal, External Approach (ICD-10-PCS; 2018-01-14 09:15)
PROC: 3E0T3BZ Introduction of Anesthetic Agent into Peripheral Nerves and Plexi, Percutaneous Approach (ICD-10-PCS; 2018-01-14 09:15)
DX: S76.112A Strain of left quadriceps muscle, fascia and tendon, initial encounter (principal); N39.0 Urinary tract infection, site not specified; S92.222A Displaced fracture of lateral cuneiform of left foot, initial encounter for closed fracture; Z96.652 Presence of left artificial knee joint; F32.9 Major depressive disorder, single episode, unspecified; F41.9 Anxiety disorder, unspecified; W18.2XXA Fall in (into) shower or empty bathtub, initial encounter; Z87.891 Personal history of nicotine dependence; Y93.E1 Activity, personal bathing and showering